=== PATIENT | male | born 1955 | race Caucasian/White ===

== ENCOUNTER 2017-04-17 14:44 | Inpatient (IN) | payer OTHER ==
[~2017-04-17] VITALS: Ht 160 cm; Wt 80.0 kg
[2017-04-17 16:02] LABS: ADD SCAN DIFF NO
[2017-04-17 16:06] LABS: BASOPHIL # 0.1 10^3/ul (0.0-0.1); BASOPHILS % 0.8 % (0.0-2.0); EOSINOPHILS # 0.2 10^3/ul (0.0-0.5); EOSINOPHILS % 1.7 % (0.0-7.0); HEMATOCRIT 38.9 % (42.0-52.0); HEMOGLOBIN 13.6 g/dl (14.0-18.0); LYMPHOCYTES # 1.8 10^3/ul (0.8-2.9); LYMPHOCYTES % 20.6 % (15.0-51.0); MEAN CORPUSCULAR HEMOGLOBIN 31.2 pg (29.0-33.0); MEAN CORPUSCULAR VOLUME 89.2 fl (82.0-101.0); MEAN PLATELET VOLUME 10.4 fl (7.4-10.4); MONOCYTE # 0.6 10^3/ul (0.3-0.9); MONOCYTES % 7.1 % (0.0-11.0); NEUTROPHIL # 6.1 10^3/ul (1.6-7.5); NEUTROPHILS % 69.5 % (39.0-77.0); PLATELET COUNT 248 10^3/UL (140-415); RED BLOOD COUNT 4.36 10^6/ul (4.70-6.10); RED CELL DISTRIBUTION WIDTH 13.2 % (11.5-14.5); WHITE BLOOD COUNT 8.7 10^3/ul (4.8-10.8)
[2017-04-17 16:22] LABS: INR 0.89; PARTIAL THROMBOPLASTIN TIME 24.4 Sec (25.0-35.0); PT RATIO 0.9
[2017-04-17 16:23] LABS: ANION GAP 12 (8-16); BLOOD UREA NITROGEN 18 mg/dl (7-20); CALCIUM 9.1 mg/dl (8.4-10.2); CARBON DIOXIDE 23 mmol/L (21-31); CHLORIDE 100 mmol/L (97-110); GLUCOSE 321 mg/dl (70-220); POTASSIUM 4.4 mmol/L (3.5-5.1); SODIUM 131 mmol/L (135-144)
--- NOTE | 2017-04-17 16:25 | RADRPT ---
PROCEDURE: XR Chest 1 View. CLINICAL INDICATION: Abnormal breath sounds, possible stroke. TECHNIQUE: AP view of the chest was obtained. COMPARISON: None. FINDINGS: The cardiomediastinal silhouette is within normal limits. Elevation of the right hemidiaphragm is id entified. Atelectasis is noted at the lung bases. No consolidations are identified. No pneumothora x is seen. Osseous structures are intact. IMPRESSION: Elevation of the right hemidiaphragm. Atelectasis at the lung bases. RPTAT: AA .Anthony Arciniega MD, MD Date Time Electronically viewed and signed by .Anthony Arciniega MD, MD on 04/17/2017 16:25 .P/
[2017-04-17 16:35] LABS: TROPONIN-I < 0.012 ng/ml (0.00-0.12)
[2017-04-17] MEDS ORDERED: ACETAMINOPHEN 325 MG TAB PO PRN ×2 (17:00→19:00)
[2017-04-17] MEDS ORDERED: ONDANSETRON 4 MG INJ IV PRN (17:00)
--- NOTE | 2017-04-17 17:35 | RADRPT ---
PROCEDURE: CT brain without contrast CLINICAL INDICATION: Stroke TECHNIQUE: CT of the brain without contrast performed on a multidetector CT scanner, with multiplan ar reformats. One or more of the following dose reduction techniques were used: Automated exposure control, adjustment in mA and / or kV according to patient size, use of iterative reconstructive harmony hnique. CTDIvol = 44 mGy; DLP = 630 mGy-cm. COMPARISON: None available FINDINGS: No acute intracranial hemorrhage is identified. No extra-axial fluid collection is seen. There is no mass effect. No midline shift is identified. Ventricles and sulci are mildly enlarged compatible with generalized volume loss. Chronic lacunar infarcts are identified at the left basal ganglia - anterior montanez radiata, genu of the right internal capsule. There is also a chronic lacunar infarct versus perivascular space at t he left sub insular region. There are mild areas of hypodensity in the periventricular - deep white matter which are nonspecific but suggestive of chronic small vessel ischemic changes. Theodore-white d ifferentiation is otherwise grossly preserved. Atherosclerotic calcifications of the proximal intracranial arteries are noted. Osseous structures are unremarkable. Mastoid air cells and imaged paranasal sinuses grossly clear. IMPRESSION: 1. No acute intracranial pathology identified. 2. Chronic left basal ganglia/montanez radiata, right internal capsule lacunar infarcts, and left sub insular chronic lacunar infarct versus perivascular space. 2. Mild generalized volume loss, with mild chronic small vessel ischemic changes. RPTAT: VV .Pascual Read MD, MD Date Time Electronically viewed and signed by .Pascual Read MD, MD on 04/17/2017 17:35 .O/
[2017-04-17 18:16] VITALS: BP 132/73; PULSE 69; RESP 16
[2017-04-17 18:22] VITALS: PULSE 73
[2017-04-17] MEDS ORDERED: DEXTROSE 5%-0.45% NACL 1,000 ML IV SCH (19:00)
--- NOTE | 2017-04-17 19:02 | ERA ---
ER Documentation Chief Complaint Date/Time DATE: 04/17/17 TIME: 19:00 Chief Complaint SENT BY PMD FOR LT SIDE WEAKNESS SINCE LAST SATURDAY HPI Patient is a 61-year-old male with hypertension and diabetes who presents with weakness. The patient said that he went to another hospital on Saturday and his sugar was high. He then was sent to his doctor who sent him to the ER because he was having left-sided face and body weakness. He said that he had incontinence which started on Saturday as well. He has chest pain and shortness of breath as well as trouble swallowing. The symptoms have been constant since Saturday. Upon review of old medical records this is the patient's first visit to the emergency department. His primary doctor is Dr. Damian. ROS All systems reviewed and are negative except as per history of present illness. Allergies Allergies: Coded Allergies: No Known Allergy (Unverified , 04/17/17) PMhx/Soc Medical and Surgical Hx: pt denies Medical Hx, pt denies Surgical Hx Hx Alcohol Use: No Hx Substance Use: No Hx Tobacco Use: No Smoking Status: Never smoker FmHx Family History: diabetes Physical Exam Vitals Vital Signs Date Time Temp Pulse Resp B/P Pulse Ox O2 Delivery O2 Flow Rate FiO2 04/17/17 15:59 Nasal Cannula 2 04/17/17 14:59 98.1 96 18 94/59 98 Physical Exam Const: Slurred speech Head: Atraumatic Eyes: Normal Conjunctiva ENT: Normal External Ears, Nose and Mouth. Neck: Full range of motion..~ No meningismus. Resp: Clear to auscultation bilaterally Cardio: Regular rate and rhythm, no murmurs Abd: Soft, non tender, non distended. Normal bowel sounds Skin: No petechiae or rashes Back: No midline or flank tenderness Ext: No cyanosis, or edema Neur: Awake and alert, left-sided facial droop, slurred speech, pronator drift to the left upper extremity, weakness of the left hand supervisor blood and weakness of the left lower extremity Psych: Normal Mood and Affect Result Diagram: 04/17/17 1555 04/17/17 1555 Results 24 hrs Laboratory Tests Test 04/17/17 15:55 White Blood Count 8.710^3/ul Red Blood Count 4.3610^6/ul Hemoglobin 13.6g/dl Hematocrit 38.9% Mean Corpuscular Volume 89.2fl Mean Corpuscular Hemoglobin 31.2pg Mean Corpuscular Hemoglobin Concent 35.0g/dl Red Cell Distribution Width 13.2% Platelet Count 30920^3/UL Mean Platelet Volume 10.4fl Neutrophils % 69.5% Lymphocytes % 20.6% Monocytes % 7.1% Eosinophils % 1.7% Basophils % 0.8% Nucleated Red Blood Cells % 0.0/100WBC Neutrophils # 6.110^3/ul Lymphocytes # 1.810^3/ul Monocytes # 0.610^3/ul Eosinophils # 0.210^3/ul Basophils # 0.110^3/ul Nucleated Red Blood Cells # 0.010^3/ul Prothrombin Time 12.0Sec Prothrombin Time Ratio 0.9 INR International Normalized Ratio 0.89 Activated Partial Thromboplast Time 24.4Sec Sodium Level 131mmol/L Potassium Level 4.4mmol/L Chloride Level 100mmol/L Carbon Dioxide Level 23mmol/L Anion Gap 12 Blood Urea Nitrogen 18mg/dl Creatinine 1.00mg/dl Glucose Level 321mg/dl Calcium Level 9.1mg/dl Troponin I < 0.012ng/ml Procedures/MDM EKG read by me: Rate/Rhythm: Regular rate and rhythm at a normal rate Intervals: Normal Impression: No evidence of ischemia or arrhythmia CT brain shows no acute abnormality per radiology. Patient is a 61-year-old male with diabetes and hypertension who presents with what appears to be an acute stroke. He is outside the window for TPA. The patient had a bedside swallow evaluation and NIH stroke scale performed. He had a CT scan of the brain which showed no acute bleed. The patient will be given aspirin for his stroke. The patient will be admitted to a telemetry bed under the care of Dr. Schofield as he has [facility] insurance. I doubt intracranial hemorrhage or mass. Departure Diagnosis: Primary Impression: Stroke Qualified Code: I63.9 - Cerebrovascular accident (CVA), unspecified mechanism Additional Impression: Acute weakness Condition: BRAXTON Roth MD April 17, 2017 19:02
[2017-04-17] MEDS ORDERED: ASPIRIN 325 MG TAB PO SCH (19:30)
--- NOTE | 2017-04-17 19:55 | RADRPT ---
PROCEDURE: US Carotids. CLINICAL INDICATION: bruit , STROKE TECHNIQUE: Multiple sonographic of the carotid bifurcation region and vertebral arteries were obta ined utilizing barahona scale, duplex and color-flow imaging. The images were reviewed on a PACS worksta tion. COMPARISON: No prior studies are available for comparison. FINDINGS: Evaluation of the right carotid bifurcation region reveals no significant calcific atherosclerotic d isease. Evaluation of the left carotid bifurcation region reveals no significant calcific atherosclerotic di sease. There is antegrade flow within the vertebral arteries bilaterally. RIGHT CAROTID MEASUREMENTS: Common Carotid Kkblql02.2 (cm/sec) Internal Carotid Artery - ixjfsgoo41.8 (cm/sec) Internal Carotid Artery - mid50.8 (cm/sec) Internal Carotid Artery - .1 (cm/sec) Internal Carotid/Common Carotid0.8 LEFT CAROTID MEASUREMENTS: Common Carotid Yimtqq71.4 (cm/sec) Internal Carotid Artery - cgxniiic49.1 (cm/sec) Internal Carotid Artery - mid58.4 (cm/sec) Internal Carotid Artery - cwabyx43.4 (cm/sec) Internal Carotid/Common Carotid0.99 RPTAT: AA IMPRESSION: No evidence for hemodynamically significant stenosis in the bilateral internal carotid arteries - va lidated velocity measurements with angiographic measurements, velocity criteria are extrapolated fro m diameter data as defined by the Society of Radiologists in Ultrasound Consensus Conference Radiolo gy 2003; 229;340-346. This study does indirectly reference the measurement of the distal ICA diamet er as the denominator for stenosis measurement. Normal antegrade flow in the vertebral arteries bilaterally. .Shad Barroso MD, Date Time Electronically viewed and signed by .Shad Barroso MD, MD on 04/17/2017 19:55 .S/
[2017-04-17 20:00] VITALS: Ht 160 cm; Wt 80.0 kg
[2017-04-17 20:03] VITALS: BP 128/72; RESP 16
[2017-04-17 20:14] VITALS: PULSE 65
--- NOTE | 2017-04-17 20:23 | QN ---
Documentation Comment A/P CVA HTN DM ASHD PLAN PER ORDER JOANNA LEACH MD April 17, 2017 20:22
[2017-04-17] MEDS ORDERED: GLUCAGON 1 MG INJ IM PRN (21:00)
[2017-04-17] MEDS ORDERED: DEXTROSE 50% 50 ML SYRINGE IV PRN ×2 (21:00)
[2017-04-17] MEDS ORDERED: GLUCOSE GEL 15 GRAM TUBE BUCCAL PRN (21:00)
[2017-04-17] MEDS ORDERED: GLUCOSE GEL 15 GRAM TUBE PO PRN ×2 (21:00)
[2017-04-17] MEDS: INSULIN ASPART [NOVOLOG] 3 ML PEN SC SCH (21:49)
--- NOTE | 2017-04-17 22:32 | QN ---
Documentation Comment [id number] JOANNA LEACH MD April 17, 2017 22:32
[2017-04-18] VITALS (13 sets, daily range): BP systolic 98–136; BP diastolic 56–78; PULSE 66–131; RESP 18–20
[2017-04-18] MEDS: ACCU-CHEK XX SCH (02:00)
[2017-04-18] MEDS ORDERED: PANTOPRAZOLE 40 MG INJ IV SCH (06:00)
--- NOTE | 2017-04-18 06:51 | HP ---
DATE OF ADMISSION: 04/17/2017 HISTORY OF PRESENT ILLNESS: The patient with history of hypertension, diabetes mellitus, presented to the ER with weakness and also some shortness of breath. No chest pain. The patient has left-sided weakness going on for some time, but he still has been trying to manage. The patient's hematocrit 38.9, sodium 131, glucose 321. The patient had a brain CT scan done, shows no acute intracranial pathology, chronic left basal ganglion _ right internal capsule lacunar infarction and left subinsular chronic lacunar infarction versus perivascular space. The patient's chest x-ray: Elevation of right hemidiaphragm. Carotid duplex scan shows no evidence for hemodynamically significant stenosis in the bilateral internal carotid arteries. PAST MEDICAL HISTORY: Positive for diabetes, hypertension. ALLERGY HISTORY: NEGATIVE. FAMILY HISTORY: Negative _ SOCIAL HISTORY: Negative. MEDICATION HISTORY: Not available. REVIEW OF SYSTEMS: HEENT: Unremarkable for complaining of speech disorder at this point. LUNGS: Unremarkable. _. ABDOMEN: Unremarkable. EXTREMITIES: Left-sided weakness. PHYSICAL EXAMINATION: GENERAL: The patient is awake, alert. VITAL SIGNS: Stable. Pulse 77, blood pressure 120/72. HEAD: Atraumatic, normocephalic. EYES: Pupils equal, reactive to light. NECK: Supple. No JVD. LUNGS: Clear. CARDIOVASCULAR: S1, S2 are normal. ABDOMEN: Soft, nontender. Bowel sounds positive. No palpable mass or hepatosplenomegaly. No guarding, rebound tenderness. EXTREMITIES: There is no cyanosis, clubbing or edema. CENTRAL NERVOUS SYSTEM: The patient is awake, alert with at times slurred speech with left-sided weakness noted. IMPRESSION: 1. Possible subacute cerebrovascular accident. 2. Diabetes mellitus, uncontrolled. 3. Hypertension. 4. Hyponatremia. PLAN: Obtain 2D echo, MRI of the brain, lipid panel. The patient is on aspirin. The patient is also on sliding scale, PPI. The patient will have lipid panel ordered. Dictated By: JOANNA DEJESUS/STEPHANIE Conf#: [id number] DID#: [id number] MTDD
[2017-04-18 08:04] LABS: CHOL/HDL RATIO 5.6 RATIO
[2017-04-18] MEDS: ASPIRIN 325 MG TAB PO SCH (08:06)
[2017-04-18] MEDS: INSULIN ASPART [NOVOLOG] 3 ML PEN SC SCH ×6 (08:10→21:03)
[2017-04-18] MEDS ORDERED: LISI-313 PO (11:42)
[2017-04-18] MEDS ORDERED: ZOC10 PO (11:42)
[2017-04-18] MEDS ORDERED: MULTI PO (11:48)
[2017-04-18] MEDS ORDERED: [UNRECOGNIZED DRUG - OTHER] PO (11:48)
[2017-04-18] MEDS ORDERED: ASPI81TA3 PO (11:48)
[2017-04-18] MEDS ORDERED: NOVO7030 SC ×2 (11:48)
[2017-04-18] MEDS ORDERED: TAMS0.4C2 PO (11:48)
--- NOTE | 2017-04-18 11:58 | CONS ---
Date/Time of Note Date/Time of Note DATE: 04/18/17 TIME: 11:47 Assessment/Plan Assessment/Plan Chief Complaint/Hosp Course 61 year old male with history of uncontrolled DM, HTN admitted with weakness, SOB and exam suggestive of right sided basal ganglia lacunar infarction from small vessel disease, possible new ischemic injury or recrudescence of symptoms due to hyperglycemia and metabolic issues. Recommendations: -MRI Brain w/o contrast, MRA Head w/o contrast carotid duplex shows no significant stenosis -continue aspirin -LDL: 86 target should be less than 70 recommend starting low dose Lipitor 10 mg qhs -2D ECHO with bubble study -maintain euglycemic, maintain normotensive blood pressure goal SBP <130 for lacunar type infarctions -recheck HBA1C first speciment was not sent -anemia work up -DVT ppx -PT/OT/Speech evaluation may benefit from AR Problems: Consultation Date/Type/Reason Admit Date/Time April 17, 2017 at 16:37 Date of Consultation: April 17, 2017 Type of Consultation: Neurology Reason for Consultation evaluation for CVA Referring Provider: JOANNA LEACH MD Hx of Present Illness 61 year old male with history of uncontrolled DM, HTN presented to the ER with complaint of generalized weakness and shortness of breath with elevated glucose 321 and mild hyponatremia Na: 131. He was noted to have left facial arm and leg weakness, Head CT showed chronic left basal ganglia/montanez radiata, right internal capsule lacunar infarcts, and left sub-insular chronic lacunar infarct. Further imaging is pending. Patient is a poor historian, denies any prior history of CVA. He denies any headache, no visual symptoms, no dysphagia or dysarthria, reports he is unable to ambulate due to weakness. weakness left arm and leg Past Medical History Medical History: diabetes, hypertension Past Surgical History Past Surgical Hx: no surgical history Social History Smoking Status: Never smoker Exam/Review of Systems Vital Signs Vitals Vital Signs Date Time Temp Pulse Resp B/P Pulse Ox O2 Delivery O2 Flow Rate FiO2 04/18/17 11:22 98.0 70 18 119/70 96 04/17/17 18:16 Room Air 04/17/17 15:59 2 Intake and Output 04/17/17 04/17/17 04/18/17 15:00 23:00 07:00 Intake Total 1100 ml Balance 1100 ml Exam awake and alert oriented x3 no aphasia follows commands well CNL JOSSELINE, no nystagmus, VFF blinks to threat appropriately, left lower facial weakness on smile palate upgoing uvula midline scm/trap intact Motor: drift to left arm, pronates significantly strength is 4-/5 on left UE to right, left leg 4+/5 strength weakness prominent more distal on plantar flexion right arm and leg 5/5 Sensory: intact throughout to DSS, reportedly intact to testing Coordination: left sided ataxia in proportion to weakness Reflexes 3+ UE and KJ, AJ absent and toes are mute Gait: not tested Results Result Diagram: 04/17/17 1555 04/17/17 1555 Results 24 hrs Laboratory Tests Test 04/17/17 15:55 04/17/17 18:00 04/17/17 21:36 04/18/17 01:49 White Blood Count 8.7 Red Blood Count 4.36 L Hemoglobin 13.6 L Hematocrit 38.9 L Mean Corpuscular Volume 89.2 Mean Corpuscular Hemoglobin 31.2 Mean Corpuscular Hemoglobin Concent 35.0 Red Cell Distribution Width 13.2 Platelet Count 248 Mean Platelet Volume 10.4 Neutrophils % 69.5 Lymphocytes % 20.6 Monocytes % 7.1 Eosinophils % 1.7 Basophils % 0.8 Nucleated Red Blood Cells % 0.0 Neutrophils # 6.1 Lymphocytes # 1.8 Monocytes # 0.6 Eosinophils # 0.2 Basophils # 0.1 Nucleated Red Blood Cells # 0.0 Prothrombin Time 12.0 L Prothrombin Time Ratio 0.9 INR International Normalized Ratio 0.89 Activated Partial Thromboplast Time 24.4 L Sodium Level 131 L Potassium Level 4.4 Chloride Level 100 Carbon Dioxide Level 23 Anion Gap 12 Blood Urea Nitrogen 18 Creatinine 1.00 Glucose Level 321 H Calcium Level 9.1 Troponin I < 0.012 Hemoglobin A1c Bedside Glucose 181 283 H Test 04/18/17 06:50 04/18/17 07:54 Triglycerides Level 251 H Cholesterol Level 165 LDL Cholesterol, Calculated 86 HDL Cholesterol 29 L Cholesterol/HDL Ratio 5.6 Bedside Glucose 328 H Medications Medications Current Medications Dextrose/Sodium Chloride (D5-1/2ns) 1,000 ml @ 30 mls/hr Q24H IV Last administered on 04/17/17t 21:52; Admin Dose 30 MLS/HR; Start 04/17/17 at 19:00 Pantoprazole (Protonix Iv) 40 mg DAILY@06 IV Last administered on 04/18/17 05: 46; Admin Dose 40 MG; Start 04/18/17 at 06:00 Aspirin (Aspirin) 325 mg DAILY PO Last administered on 04/18/17 08:06; Admin Dose 325 MG; Start 04/18/17 at 09:00 Acetaminophen (Tylenol Tab) 650 mg Q6H PRN PO PAIN AND OR ELEVATED TEMP; Start 04/17/17 at 19:00 Diagnostic Test (Pha) (Accu-Chek) 1 ea 02 XX ; Start 04/18/17 at 02:00 Miscellaneous Information 1 ea NOTE XX ; Start 04/17/17 at 21:00 Glucose (Glutose) 15 gm Q15M PRN PO DECREASED GLUCOSE; Start 04/17/17 at 21:00 Glucose (Glutose) 22.5 gm Q15M PRN PO DECREASED GLUCOSE; Start 04/17/17 at 21: 00 Dextrose (D50w Syringe) 25 ml Q15M PRN IV DECREASED GLUCOSE; Start 04/17/17 at 21:00 Dextrose (D50w Syringe) 50 ml Q15M PRN IV DECREASED GLUCOSE; Start 04/17/17 at 21:00 Glucagon (Glucagen) 1 mg Q15M PRN IM DECREASED GLUCOSE; Start 04/17/17 at 21:00 Glucose (Glutose) 15 gm Q15M PRN BUCCAL DECREASED GLUCOSE; Start 04/17/17 at 21 :00 SHONNA HERNANDEZ MD Apr 18, 2017 11:58
[2017-04-18] MEDS ORDERED: NON-FORMULARY/PATIENT OWN MED (Simvastatin 10 MG) PO SCH (12:00)
[2017-04-18] MEDS: MULTIVITAMINS THERAPEUTIC TAB PO SCH (13:07)
[2017-04-18] MEDS: LISINOPRIL 5 MG TAB PO SCH (13:07)
[2017-04-18] MEDS: TAMSULOSIN (SR) 0.4 MG CAP PO SCH (13:07)
[2017-04-18] MEDS ORDERED: INSULIN GLARGINE [LANtus] 3 ML PEN SC SCH ×2 (14:00→20:00)
--- NOTE | 2017-04-18 19:27 | PN ---
Date/Time of Note Date/Time of Note DATE: 04/18/17 TIME: 19:25 Assessment/Plan VTE Prophylaxis VTE Prophylaxis Intervention: other Lines/Catheters Urinary Cath still in place: No Assessment/Plan Chief Complaint/Hosp Course IMPRESSION: 1. Possible subacute cerebrovascular accident. 2. Diabetes mellitus, uncontrolled. 3. Hypertension. 4. Hyponatremia. plan per dr jamey reese insulin Problems: Subjective 24 Hr Interval Summary ENT: no complaints Respiratory: no complaints Cardiovascular: no complaints Gastrointestinal: no complaints Exam/Review of Systems Vital Signs Vitals Vital Signs Date Time Temp Pulse Resp B/P Pulse Ox O2 Delivery O2 Flow Rate FiO2 04/18/17 16:00 70 04/18/17 15:16 98.0 18 101/60 96 04/17/17 18:16 Room Air 04/17/17 15:59 2 Intake and Output 04/17/17 04/17/17 04/18/17 15:00 23:00 07:00 Intake Total 1100 ml Balance 1100 ml Exam Respiratory: clear to auscultation Cardiovascular: regular rate and rhythm Gastrointestinal: soft Musculoskeletal: nl extremities to inspection Extremities: normal pulses Neurological: other (left side weakness) Results Result Diagram: 04/17/17 1555 04/17/17 1555 Results 24 hrs Laboratory Tests Test 04/17/17 21:36 04/18/17 01:49 04/18/17 06:50 04/18/17 07:54 Bedside Glucose 181 283 H 328 H Triglycerides Level 251 H Cholesterol Level 165 LDL Cholesterol, Calculated 86 HDL Cholesterol 29 L Cholesterol/HDL Ratio 5.6 Test 04/18/17 12:15 04/18/17 15:34 04/18/17 17:25 Bedside Glucose 317 H 281 H 272 H Medications Medications Current Medications Dextrose/Sodium Chloride (D5-1/2ns) 1,000 ml @ 0 mls/hr Q24H IV Last administered on 04/17/17 21:52; Admin Dose 30 MLS/HR; Start 04/17/17 at 19:00 Aspirin (Aspirin) 325 mg DAILY PO Last administered on 04/18/17 08:06; Admin Dose 325 MG; Start 04/18/17 at 09:00 Acetaminophen (Tylenol Tab) 650 mg Q6H PRN PO PAIN AND OR ELEVATED TEMP; Start 04/17/17 at 19:00 Diagnostic Test (Pha) (Accu-Chek) 1 XX ; Start 04/18/17 at 02:00 Miscellaneous Information 1 ea NOTE XX ; Start 04/17/17 at 21:00 Glucose (Glutose) 15 gm Q15M PRN PO DECREASED GLUCOSE; Start 04/17/17 at 21:00 Glucose (Glutose) 22.5 gm Q15M PRN PO DECREASED GLUCOSE; Start 04/17/17 at 21: 00 Dextrose (D50w Syringe) 25 ml Q15M PRN IV DECREASED GLUCOSE; Start 04/17/17 at 21:00 Dextrose (D50w Syringe) 50 ml Q15M PRN IV DECREASED GLUCOSE; Start 04/17/17 at 21:00 Glucagon (Glucagen) 1 mg Q15M PRN IM DECREASED GLUCOSE; Start 04/17/17 at 21:00 Glucose (Glutose) 15 gm Q15M PRN BUCCAL DECREASED GLUCOSE; Start 04/17/17 at 21 :00 Atorvastatin Calcium (Lipitor) 10 mg HS PO ; Start 04/18/17 at 21:00 Lisinopril (Zestril) 5 mg DAILY PO Last administered on 04/18/17 13:07; Admin Dose 5 MG; Start 04/18/17 at 12:00 Multivitamins Therapeutic (Theragran) 1 tab DAILY PO Last administered on 13:07; Admin Dose 1 TAB; Start 04/18/17 at 12:00 Tamsulosin HCl (Flomax) 0.4 mg DAILY PO Last administered on 04/18/17 13:07; Admin Dose 0.4 MG; Start 04/18/17 at 12:00 Insulin Glargine (Lantus) 20 unit QAM SC Last administered on 04/18/17 15:39; Admin Dose 20 UNIT; Start 04/18/17 at 14:00 Pantoprazole (Protonix Tab) 40 mg DAILY@06 PO ; Start 04/19/17 at 06:00 JOANNA LEACH MD Apr 18, 2017 19:27
--- NOTE | 2017-04-18 20:20 | RADRPT ---
Echocardiogram Report Patient Name: TAI SPENCER Gender: Male Date: 1955 Study Date: 18-Apr-2017 Restrike Hammer Operator: Shruthi [facility] Location: [id number] Ref. Physician: JOANNA LEACH Quality: Adequate Procedures: Transthoracic echocardiogram with complete 2D, M-Mode, and doppler examination. Indications: Stroke. 2D/M Mode Doppler Measurement Value Normal Ranges Measurement Value Normal Ranges LVIDd 2D 4.7 3.5 - 5.6 cm AV Peak Callum 1.0 m/sec LVIDs 2D 3.1 2.1 - 4.1 cm AV Peak PG 4.2 mmHg LVPWd 2D 1.2 0.6 - 1.1 cm LVOT Peak Callum 0.8 m/sec IVSd 2D 1.2 0.6 - 1.1 cm LVOT Peak PG 2.5 mmHg AoR Diam 2D 3.4 2.0 - 3.7 cm MV E Peak Callum 0.7 m/sec EDV 2D 101.7 cm3 MV A Peak Callum 0.9 m/sec ESV 2D 28.7 cm3 MV E/A 0.8 LA Dimen 2D 3.7 2.3 - 4.0 cm MV Decel Time 256 msec MV Decel [place] 3 MV E/A 0.8 Findings Left Ventricle: Normal left ventricular systolic function. Normal left ventricular cavity size. Left ventricular wall thickness upper limits of normal. Ejection fraction is visually estimated at 6065 %. Tissue Doppler/Mitral Doppler indices are consistent with impaired relaxation (Stage I diastolic dysfunction). Right Ventricle: Normal right ventricular size. Normal right ventricular systolic function. Left Atrium: The left atrium is normal in size. Right Atrium: The right atrium is normal in size. Mitral Valve: Mild mitral annular calcification. Trace mitral regurgitation. Aortic Valve: Normal appearance of the aortic valve. No significant aortic stenosis or insufficiency. Tricuspid Valve: Normal appearance and function of the tricuspid valve with trace physiologic regurgitation. Pulmonic Valve: Pulmonic valve not well visualized. There is trace pulmonic regurgitation. Pericardium: Normal pericardium with no significant pericardial effusion. Aorta: Normal aortic root. IVC: Normal size and normal respiratory collapse consistent with normal right atrial pressure. Conclusions 1.Normal left ventricular systolic function. Normal left ventricular cavity size. Left ventricular wall thickness upper limits of normal. Ejection fraction is visually estimated at 60-65 %. Tissue Doppler/Mitral Doppler indices are consistent with impaired relaxation (Stage I diastolic dysfunction). 2.Trace mitral regurgitation. 3.Normal appearance and function of the tricuspid valve with trace physiologic regurgitation. 4.There is trace pulmonic regurgitation. Electronically Signed By: Adama Fontenot 18-Apr-2017 20:20:09 -0700 Patient Name: TAI SPENCER Study Date: 18-Apr-2017 [id number]
[2017-04-18] MEDS: ATORVASTATIN 10 MG TAB PO SCH (21:01)
--- NOTE | 2017-04-18 22:24 | RADRPT ---
PROCEDURE: MRI Brain without contrast. CLINICAL INDICATION: Acute stroke TECHNIQUE: An MRI of the brain was performed on a high resolution hi-definition MRI scanner utiliz ing the following sequences: Sagittal and axial T1 weighted, axial T2 weighted, axial diffusion gianna ghted with ADC mapping, coronal GRE, and axial FLAIR. COMPARISON: CT brain 04/17/2017 FINDINGS: The scalp and calvarium are normal. The bilateral orbits are normal. The bilateral paranasal sinuse s are remarkable for chronic bilateral mucoperiosteal disease in the maxillary sinuses, the ethmoid sinuses and the right septated sphenoid sinus. The presence of a small polyp is suggested in the ri ght sphenoid sinus. On diffusion weighted sequences, restricted diffusion is present in the right lee dorian compatible w ith an acute non hemorrhagic infarct. On the FLAIR and T2-weighted sequences, punctate foci of hyper intensity are present in the bilateral subcortical white matter, bilateral centrum semiovale, bilate ral periventricular white matter most compatible with mild chronic microvascular ischemic disease. A chronic lacunar infarct is noted in the left montanez radiography extending inferiorly into the left basal ganglia as well as the chronic lacunar infarct in the right humaira of the internal capsule. No extra-axial fluid collections are present. The ventricles and sulci are age appropriate. Mild di ffuse volume loss is present. No evidence of intracranial hemorrhage, mass effect or midline shift i s present. Normal flow voids are visible in the proximal intracranial arteries and dural sinuses, indicating patency. IMPRESSION: 1. Acute, non hemorrhagic right lee pontine infarct. 2. Chronic left montanez radiata, left basal ganglia and right internal capsule lacunar infarcts. 3. Mild chronic microvascular ischemic disease and diffuse volume loss. 4. Chronic bilateral maxillary sinus disease and right septated sphenoid sinus disease and possible polyp. A call report was made to Alli Schofield at 04/18/2017 10:19:51 PM following the completion of the exam ination by the undersigned. RPTAT: HDC .Perla Kang MD, Date Time Electronically viewed and signed by .Perla Kang MD, on 04/18/2017 22:24 .C/
--- NOTE | 2017-04-18 22:27 | RADRPT ---
PROCEDURE: MRA Brain. CLINICAL INDICATION: Left-sided weakness TECHNIQUE: An MRA of the brain was performed on a GE 3.0 Nirmala nirmala scanner 3-D [id number] MR angiography technique. Source and MIP images were reviewed. COMPARISON: CT brain 04/17/2017 FINDINGS: The internal carotid arteries are patent and normal in caliber. The middle cerebral and the anterio r cerebral arteries are also patent and normal in caliber with no significant luminal irregularity o r narrowing identified. The vertebral arteries join to form the basilar artery which is seen to the [place]. 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 Normal bilateral superior cerebellar arteries and bilateral posterior cerebral arteries are noted. superio r cerebellar arteries are visualized and normal in appearance. The right vertebral artery is domin ant. The posterior cerebral arteries are patent and normal in appearance bilaterally. No aneurysm s are detected. IMPRESSION: 1. Normal variant MR angiogram of the [place]. RPTAT: HDC .Perla Kang MD, MD Date Time Electronically viewed and signed by .Perla Kang MD, on 04/18/2017 22:27 .C/
[2017-04-19] VITALS (17 sets, daily range): BP systolic 97–121; BP diastolic 55–71; PULSE 67–172; RESP 16–18
[2017-04-19] MEDS: ACCU-CHEK XX SCH (02:00)
[2017-04-19] MEDS: PANTOPRAZOLE (EC) 40 MG TAB PO SCH (05:57)
[2017-04-19] MEDS: INSULIN ASPART [NOVOLOG] 3 ML PEN SC SCH ×7 (08:11→21:57)
[2017-04-19] MEDS: LISINOPRIL 5 MG TAB PO SCH (08:39)
[2017-04-19] MEDS: TAMSULOSIN (SR) 0.4 MG CAP PO SCH (08:39)
[2017-04-19] MEDS: ASPIRIN 325 MG TAB PO SCH (08:39)
[2017-04-19] MEDS: MULTIVITAMINS THERAPEUTIC TAB PO SCH (08:39)
[2017-04-19] MEDS: INSULIN GLARGINE [LANtus] 3 ML PEN SC SCH (08:44)
--- NOTE | 2017-04-19 15:06 | PN ---
Date/Time of Note Date/Time of Note DATE: 04/19/17 TIME: 15:05 Assessment/Plan VTE Prophylaxis VTE Prophylaxis Intervention: ambulation Lines/Catheters Urinary Cath still in place: No Assessment/Plan Chief Complaint/Hosp Course 1. Possible subacute cerebrovascular accident. 2. Diabetes mellitus, uncontrolled. 3. Hypertension. 4. Hyponatremia Problems: Subjective 24 Hr Interval Summary Constitutional: improved, no complaints Exam/Review of Systems Vital Signs Vitals Vital Signs Date Time Temp Pulse Resp B/P Pulse Ox O2 Delivery O2 Flow Rate FiO2 04/19/17 12:00 79 04/19/17 11:17 98.4 18 121/71 97 04/17/17 18:16 Room Air 04/17/17 15:59 2 Intake and Output 04/18/17 04/18/17 04/19/17 15:00 23:00 07:00 Intake Total 500 ml 550 ml Output Total 300 ml 600 ml Balance 200 ml -50 ml Exam Constitutional: alert, oriented Respiratory: clear to auscultation Cardiovascular: regular rate and rhythm Results Result Diagram: 04/17/17 1555 04/17/17 1555 Results 24 hrs Laboratory Tests Test 04/18/17 15:34 04/18/17 17:25 04/18/17 21:00 04/19/17 01:39 Bedside Glucose 281 H 272 H 256 H 283 H Test 04/19/17 06:05 04/19/17 08:07 04/19/17 11:28 Hemoglobin A1c Bedside Glucose 292 H 267 H Medications Medications Current Medications Dextrose/Sodium Chloride (D5-1/2ns) 1,000 ml @ 0 mls/hr Q24H IV Last administered on 04/17/17 21:52; Admin Dose 30 MLS/HR; Start 04/17/17 at 19:00 Aspirin (Aspirin) 325 mg DAILY PO Last administered on 04/19/17 08:39; Admin Dose 325 MG; Start 04/18/17 at 09:00 Acetaminophen (Tylenol Tab) 650 mg Q6H PRN PO PAIN AND OR ELEVATED TEMP; Start 04/17/17 at 19:00 Diagnostic Test (Pha) (Accu-Chek) 1 ea 02 XX ; Start 04/18/17 at 02:00 Miscellaneous Information 1 ea NOTE XX ; Start 04/17/17 at 21:00 Glucose (Glutose) 15 gm Q15M PRN PO DECREASED GLUCOSE; Start 04/17/17 at 21:00 Glucose (Glutose) 22.5 gm Q15M PRN PO DECREASED GLUCOSE; Start 04/17/17 at 21: 00 Dextrose (D50w Syringe) 25 ml Q15M PRN IV DECREASED GLUCOSE; Start 04/17/17 at 21:00 Dextrose (D50w Syringe) 50 ml Q15M PRN IV DECREASED GLUCOSE; Start 04/17/17 at 21:00 Glucagon (Glucagen) 1 mg Q15M PRN IM DECREASED GLUCOSE; Start 04/17/17 at 21:00 Glucose (Glutose) 15 gm Q15M PRN BUCCAL DECREASED GLUCOSE; Start 04/17/17 at 21 :00 Atorvastatin Calcium (Lipitor) 10 mg HS PO Last administered on 04/18/17 21:01 ; Admin Dose 10 MG; Start 04/18/17 at 21:00 Lisinopril (Zestril) 5 mg DAILY PO Last administered on 04/19/17 08:39; Admin Dose 5 MG; Start 04/18/17 at 12:00 Multivitamins Therapeutic (Theragran) 1 tab DAILY PO Last administered on 08:39; Admin Dose 1 TAB; Start 04/18/17 at 12:00 Tamsulosin HCl (Flomax) 0.4 mg DAILY PO Last administered on 04/19/17 08:39; Admin Dose 0.4 MG; Start 04/18/17 at 12:00 Pantoprazole (Protonix Tab) 40 mg DAILY@06 PO Last administered on 04/19/17 05: 57; Admin Dose 40 MG; Start 04/19/17 at 06:00 Insulin Glargine (Lantus) 25 unit QAM SC Last administered on 04/19/17 08:44; Admin Dose 25 UNIT; Start 04/19/17 at 09:00 ZO YO 2, 2017 15:06
--- NOTE | 2017-04-19 15:09 | PDOCDIS ---
Discharge Instructions CONDITION Patient Condition: Serious HOME CARE INSTRUCTIONS: Diet Instructions: Reduced SodiumSpecial Diet: DIABETIC DIET. ACTIVITY: Activity Restrictions: Slowly Increase Activity FOLLOW UP/APPOINTMENTS Appointments continue rehab SCHOOL/WORK RELEASE May return to School/Work with: With Restrictions ZO YO Apr 19, 2017 15:09
[2017-04-19] MEDS ORDERED: ACET325T40 PO (15:12)
[2017-04-19] MEDS ORDERED: Accu-Chek XX (15:12)
[2017-04-19] MEDS ORDERED: NOVO3I SC ×2 (15:12)
[2017-04-19] MEDS ORDERED: ASPI325T4 PO (15:12)
[2017-04-19] MEDS ORDERED: LANT3I SC (15:12)
[2017-04-19] MEDS ORDERED: PANT40TA4 PO (15:12)
--- NOTE | 2017-04-19 15:22 | CONS ---
Date/Time of Note Date/Time of Note DATE: 04/19/17 TIME: 15:13 Assessment/Plan Assessment/Plan Chief Complaint/Hosp Course Left-sided weakness Problems: Additional Assessment/Plan 61 year old male with history of uncontrolled DM, HTN admitted with weakness, SOB and exam suggestive of right sided basal ganglia lacunar infarction from small vessel disease, possible new ischemic injury or recrudescence of symptoms due to hyperglycemia and metabolic issues. MRI of the brain showed acute, non hemorrhagic right lee pontine infarct, chronic left montanez radiata, left basal ganglia and right internal capsule lacunar infarcts, mild chronic microvascular ischemic disease and diffuse volume loss. Plan -continue aspirin -LDL: 86 target should be less than 70 recommend starting low dose Lipitor 10 mg qhs -2D ECHO with bubble study -maintain euglycemic, maintain normotensive blood pressure goal SBP <130 for lacunar type infarctions -recheck HBA1C first speciment was not sent -anemia work up -DVT ppx -PT/OT/Speech evaluation may benefit from AR Consultation Date/Type/Reason Admit Date/Time April 17, 2017 at 16:37 Initial Consult Date 04/17/17 Type of Consultation: Neurology Reason for Consultation Left-sided weakness Referring Provider: ALLI LEACH MD 24 HR Interval Summary Free Text/Dictation He is improving in his left-sided weakness. MRI of the brain showed acute, non hemorrhagic right lee pontine infarct, chronic left montanez radiata, left basal ganglia and right internal capsule lacunar infarcts, mild chronic microvascular ischemic disease and diffuse volume loss. Exam/Review of Systems Vital Signs Vitals Vital Signs Date Time Temp Pulse Resp B/P Pulse Ox O2 Delivery O2 Flow Rate FiO2 04/19/17 12:00 79 04/19/17 11:17 98.4 18 121/71 97 04/17/17 18:16 Room Air 04/17/17 15:59 2 Intake and Output 04/18/17 04/18/17 04/19/17 14:59 22:59 06:59 Intake Total 500 ml 550 ml Output Total 300 ml 600 ml Balance 200 ml -50 ml Exam Constitutional: alert, oriented, well developed Psych: nl mood/affect, no complaints Head: atraumatic, normocephalic Eyes: EOMI, nl conjunctiva, nl lids, nl sclera ENMT: mucosa pink and moist, nl external ears & nose, nl lips & teeth Neck: non-tender, supple Respiratory: clear to auscultation, normal air movement Cardiovascular: nl pulses, regular rate and rhythm Gastrointestinal: nl liver, spleen, non-tender, soft Neurological: nl mental status, nl speech, other (Mild left-sided weakness) Results Result Diagram: 04/17/17 1555 04/17/17 1555 Results 24 hrs Laboratory Tests Test 04/18/17 15:34 04/18/17 17:25 04/18/17 21:00 04/19/17 01:39 Bedside Glucose 281 H 272 H 256 H 283 H Test 04/19/17 06:05 04/19/17 08:07 04/19/17 11:28 Hemoglobin A1c Bedside Glucose 292 H 267 H Medications Medications Current Medications Dextrose/Sodium Chloride (D5-1/2ns) 1,000 ml @ 0 mls/hr Q24H IV Last administered on 04/17/17 21:52; Admin Dose 30 MLS/HR; Start 04/17/17 at 19:00 Aspirin (Aspirin) 325 mg DAILY PO Last administered on 04/19/17 08:39; Admin Dose 325 MG; Start 04/18/17 at 09:00 Acetaminophen (Tylenol Tab) 650 mg Q6H PRN PO PAIN AND OR ELEVATED TEMP; Start 04/17/17 at 19:00 Diagnostic Test (Pha) (Accu-Chek) 1 ea 02 XX ; Start 04/18/17 at 02:00 Miscellaneous Information 1 ea NOTE XX ; Start 04/17/17 at 21:00 Glucose (Glutose) 15 gm Q15M PRN PO DECREASED GLUCOSE; Start 04/17/17 at 21:00 Glucose (Glutose) 22.5 gm Q15M PRN PO DECREASED GLUCOSE; Start 04/17/17 at 21: 00 Dextrose (D50w Syringe) 25 ml Q15M PRN IV DECREASED GLUCOSE; Start 04/17/17 at 21:00 Dextrose (D50w Syringe) 50 ml Q15M PRN IV DECREASED GLUCOSE; Start 04/17/17 at 21:00 Glucagon (Glucagen) 1 mg Q15M PRN IM DECREASED GLUCOSE; Start 04/17/17 at 21:00 Glucose (Glutose) 15 gm Q15M PRN BUCCAL DECREASED GLUCOSE; Start 04/17/17 at 21 :00 Atorvastatin Calcium (Lipitor) 10 mg HS PO Last administered on 04/18/17 21:01 ; Admin Dose 10 MG; Start 04/18/17 at 21:00 Lisinopril (Zestril) 5 mg DAILY PO Last administered on 04/19/17 08:39; Admin Dose 5 MG; Start 04/18/17 at 12:00 Multivitamins Therapeutic (Theragran) 1 tab DAILY PO Last administered on 08:39; Admin Dose 1 TAB; Start 04/18/17 at 12:00 Tamsulosin HCl (Flomax) 0.4 mg DAILY PO Last administered on 04/19/17 08:39; Admin Dose 0.4 MG; Start 04/18/17 at 12:00 Pantoprazole (Protonix Tab) 40 mg DAILY@06 PO Last administered on 04/19/17 05: 57; Admin Dose 40 MG; Start 04/19/17 at 06:00 Insulin Glargine (Lantus) 25 unit QAM SC Last administered on 04/19/17 08:44; Admin Dose 25 UNIT; Start 04/19/17 at 09:[address] scan of the brain 04/18/2017 IMPRESSION: 1. No acute intracranial pathology identified. 2. Chronic left basal ganglia/montanez radiata, right internal capsule lacunar infarcts, and left sub insular chronic lacunar infarct versus perivascular space. 2. Mild generalized volume loss, with mild chronic small vessel ischemic changes. RPTAT: VV .Pascual Read MD, MD Date Time MRI of the brain 04/18/2017 IMPRESSION: 1. Acute, non hemorrhagic right lee pontine infarct. 2. Chronic left montanez radiata, left basal ganglia and right internal capsule lacunar infarcts. 3. Mild chronic microvascular ischemic disease and diffuse volume loss. 4. Chronic bilateral maxillary sinus disease and right septated sphenoid sinus disease and possible polyp. A call report was made to Alli Leach at 04/18/2017 10:19:51 PM following the completion of the examination by the undersigned. RPTAT: HDC .Perla Kang MD, Date Time Electronically viewed and signed by .Perla Kang MD, on 04/18/2017 22: 24 MR angiogram of the brain 04/18/2017 IMPRESSION: 1. Normal variant MR angiogram of the [place]. RPTAT: HDC .Perla Kang MD, Date Time Electronically viewed and signed by .Perla Kang MD, on 04/18/2017 22: 27 DEEN WILLIAM MD Apr 19, 2017 15:22
[2017-04-19] MEDS ORDERED: METOPROLOL 25 MG TAB PO ONE (15:30)
[2017-04-19] MEDS ORDERED: METOPROLOL (XL) 50 MG TAB PO SCH (21:00)
[2017-04-19] MEDS: ATORVASTATIN 10 MG TAB PO SCH (22:08)
[2017-04-19] MEDS: METOPROLOL (XL) 50 MG TAB PO SCH (22:09)
[2017-04-20] VITALS (7 sets, daily range): BP systolic 104–109; BP diastolic 57–61; PULSE 62–70; RESP 16–18
[2017-04-20] MEDS: ACCU-CHEK XX SCH (02:50)
[2017-04-20] MEDS: PANTOPRAZOLE (EC) 40 MG TAB PO SCH (05:54)
[2017-04-20] MEDS: INSULIN ASPART [NOVOLOG] 3 ML PEN SC SCH ×2 (07:38→07:39)
[2017-04-20] MEDS: INSULIN GLARGINE [LANtus] 3 ML PEN SC SCH (08:19)
[2017-04-20] MEDS: MULTIVITAMINS THERAPEUTIC TAB PO SCH (08:20)
[2017-04-20] MEDS: ASPIRIN 325 MG TAB PO SCH (08:20)
[2017-04-20] MEDS: LISINOPRIL 5 MG TAB PO SCH (08:20)
[2017-04-20] MEDS: TAMSULOSIN (SR) 0.4 MG CAP PO SCH (08:21)
[2017-04-20] MEDS: METOPROLOL (XL) 50 MG TAB PO SCH (08:21)
[2017-04-20 08:32] LABS: ADD UMIC YES; URINE BILIRUBIN (Dip) NEGATIVE (NEGATIVE); URINE BLOOD (Dip) NEGATIVE (NEGATIVE); URINE COLOR LT. YELLOW (YELLOW); URINE GLUCOSE (Dip) >=1000 % (NEGATIVE); URINE KETONES (Dip) NEGATIVE (NEGATIVE); URINE LEUKOCYTE ESTERASE (Dip) TRACE (NEGATIVE); URINE NITRITE (Dip) NEGATIVE (NEGATIVE); URINE TOTAL PROTEIN (Dip) NEGATIVE (NEGATIVE); URINE UROBILINOGEN (Dip) 0.2 E.U./dL (0.1-1.0)
[2017-04-20 08:42] LABS: URINE RBCS 0-2 /HPF (0)
[2017-04-20 09:37] LABS: BARBITURATES Negative (NEGATIVE); BENZODIAZEPINES Negative (NEGATIVE); CANNABINOIDS Negative (NEGATIVE); COCAINE Negative (NEGATIVE); OPIATES Negative (NEGATIVE)
[2017-04-20] MEDS ORDERED: INSULIN ASPART [NOVOLOG] 3 ML PEN SC SCH ×2 (11:50)
--- NOTE | 2017-04-20 12:29 | CONS ---
Date/Time of Note Date/Time of Note DATE: 04/20/17 TIME: 12:27 Assessment/Plan Assessment/Plan Chief Complaint/Hosp Course Left-sided weakness Problems: Additional Assessment/Plan 61 year old male with history of uncontrolled DM, HTN admitted with weakness, SOB and exam suggestive of right sided basal ganglia lacunar infarction from small vessel disease, possible new ischemic injury or recrudescence of symptoms due to hyperglycemia and metabolic issues. MRI of the brain showed acute, non hemorrhagic right lee pontine infarct, chronic left montanez radiata, left basal ganglia and right internal capsule lacunar infarcts, mild chronic microvascular ischemic disease and diffuse volume loss. Plan -continue aspirin -LDL: 86 target should be less than 70 recommend starting low dose Lipitor 10 mg qhs -2D ECHO with bubble study -maintain euglycemic, maintain normotensive blood pressure goal SBP <130 for lacunar type infarctions -recheck HBA1C first speciment was not sent -anemia work up -DVT ppx -PT/OT/Speech evaluation may benefit from ARU Consultation Date/Type/Reason Admit Date/Time April 17, 2017 at 16:37 Initial Consult Date 04/17/17 Type of Consultation: Neurology Referring Provider: JOANNA LEACH MD 24 HR Interval Summary Free Text/Dictation Doing well. No problems swallowing or walking. Has been having physical therapy. Constitutional: no complaints Exam/Review of Systems Vital Signs Vitals Vital Signs Date Time Temp Pulse Resp B/P Pulse Ox O2 Delivery O2 Flow Rate FiO2 04/20/17 12:18 62 04/20/17 11:23 98.0 18 109/57 97 04/17/17 18:16 Room Air 04/17/17 15:59 2 Intake and Output 04/19/17 04/19/17 04/20/17 15:00 23:00 07:00 Intake Total 800 ml 480 ml Output Total 400 ml Balance 800 ml 80 ml Exam Constitutional: alert, oriented, well developed Psych: nl mood/affect, no complaints Head: atraumatic, normocephalic Eyes: EOMI, nl conjunctiva, nl lids, nl sclera ENMT: mucosa pink and moist, nl external ears & nose, nl lips & teeth, nl nasal mucosa & septum Neck: non-tender, supple Respiratory: clear to auscultation, normal air movement Cardiovascular: nl pulses, regular rate and rhythm Gastrointestinal: nl liver, spleen, non-tender, soft Musculoskeletal: nl extremities to inspection Extremities: normal pulses Neurological: MOLD CHANGER II-XII intact, nl mental status, nl speech, other (My left hemiparesis) Results Result Diagram: 04/17/17 1555 04/17/17 1555 Results 24 hrs Laboratory Tests Test 04/19/17 17:26 04/19/17 21:51 04/20/17 01:30 04/20/17 02:44 Bedside Glucose 195 243 H 333 H Urine Color LT. YELLOW Urine Clarity CLEAR Urine pH 6.0 Urine Specific [place] 1.010 Urine Ketones NEGATIVE Urine Nitrite NEGATIVE Urine Bilirubin NEGATIVE Urine Urobilinogen 0.2 E.U./dL Urine Leukocyte Esterase TRACE H Urine Microscopic RBC 0-2 Urine Microscopic WBC 0-2 Urine Hemoglobin NEGATIVE Urine Glucose >=1000 Urine Total Protein NEGATIVE Urine Opiates Screen Negative Urine Barbiturates Negative Urine Amphetamines Screen Negative Urine Benzodiazepines Screen Negative Urine Cocaine Screen Negative Urine Cannabinoids Negative Test 04/20/17 07:29 04/20/17 11:28 Bedside Glucose 316 H 347 H Medications Medications Current Medications Aspirin (Aspirin) 325 mg DAILY PO Last administered on 04/20/17 08:20; Admin Dose 325 MG; Start 04/18/17 at 09:00 Acetaminophen (Tylenol Tab) 650 mg Q6H PRN PO PAIN AND OR ELEVATED TEMP; Start 04/17/17 at 19:00 Diagnostic Test (Pha) (Accu-Chek) 1 ea 02 XX Last administered on 04/20/17 02: 50; Admin Dose 1 EA; Start 04/18/17 at 02:00 Miscellaneous Information 1 ea NOTE XX ; Start 04/17/17 at 21:00 Glucose (Glutose) 15 gm Q15M PRN PO DECREASED GLUCOSE; Start 04/17/17 at 21:00 Glucose (Glutose) 22.5 gm Q15M PRN PO DECREASED GLUCOSE; Start 04/17/17 at 21: 00 Dextrose (D50w Syringe) 25 ml Q15M PRN IV DECREASED GLUCOSE; Start 04/17/17 at 21:00 Dextrose (D50w Syringe) 50 ml Q15M PRN IV DECREASED GLUCOSE; Start 04/17/17 at 21:00 Glucagon (Glucagen) 1 mg Q15M PRN IM DECREASED GLUCOSE; Start 04/17/17 at 21:00 Glucose (Glutose) 15 gm Q15M PRN BUCCAL DECREASED GLUCOSE; Start 04/17/17 at 21 :00 Atorvastatin Calcium (Lipitor) 10 mg HS PO Last administered on 04/19/17 22:08 ; Admin Dose 10 MG; Start 04/18/17 at 21:00 Lisinopril (Zestril) 5 mg DAILY PO Last administered on 04/20/17 08:20; Admin Dose 5 MG; Start 04/18/17 at 12:00 Multivitamins Therapeutic (Theragran) 1 tab DAILY PO Last administered on 08:20; Admin Dose 1 TAB; Start 04/18/17 at 12:00 Tamsulosin HCl (Flomax) 0.4 mg DAILY PO Last administered on 04/20/17 08:21; Admin Dose 0.4 MG; Start 04/18/17 at 12:00 Pantoprazole (Protonix Tab) 40 mg DAILY@06 PO Last administered on 04/20/17 05: 54; Admin Dose 40 MG; Start 04/19/17 at 06:00 Metoprolol Succinate (Toprol Xl) 50 mg BID PO Last administered on 04/20/17 08: 21; Admin Dose 50 MG; Start 04/19/17 at 21:00 Insulin Glargine (Lantus) 30 unit QAM SC ; Start 04/21/17 at 09:00 EDEN WILLIAM MD Apr 20, 2017 12:29
[2017-04-21] MEDS ORDERED: ACCU-CHEK XX SCH (02:00)
[2017-04-21] MEDS ORDERED: INSULIN GLARGINE [LANtus] 3 ML PEN SC SCH (09:00)
--- NOTE | 2017-04-23 21:08 | DS ---
Date/Time of Note Date/Time of Note DATE: 04/23/17 TIME: 21:03 Discharge Summary Admission/Discharge Info Admit Date/Time April 17, 2017 at 16:37 Discharge Date/Time Apr 20, 2017 at 13:20 Final Diagnosis right CVA with left hemiparesis Patient Condition: Serious Procedures CT scan and MRI Hx of Present Illness Pt with history of non compliance and hypertension was admitted with right sided CVA. Pt developed left sided weakness. After optimization of the BP pt was transferred to rehabilitation center Hospital Course Left-sided weakness Home Meds Active Scripts Pantoprazole* (Pantoprazole*) 40 Mg Tablet.dr, 40 MG PO DAILY@06 for 30 Days Prov:ZO YO 04/19/17 Insulin Glargine* (Lantus*) 100 Unit/Ml Soln, 25 UNIT SC QAM for 30 Days Prov:ZO YO 04/19/17 Insulin Aspart* (Novolog Insulin Pen*) 100 Unit/Ml Soln, 0 UNIT SC WITH MEALS BEDTIME for 10 Days Prov:ZO YO 04/19/17 Insulin Aspart* (Novolog Insulin Pen*) 100 Unit/Ml Soln, 8 UNIT SC WITH MEALS for 10 Days Prov:ZO YO 04/19/17 Aspirin (Aspirin Lite-Coat) 325 Mg Tablet, 325 MG PO DAILY for 30 Days, TAB Prov:ZO YO 04/19/17 Acetaminophen (MAPAP) 325 Mg Tablet, 650 MG PO Q6H Y for PAIN AND OR ELEVATED TEMP for 10 Days, TAB Prov:ZO YO 04/19/17 [Accu-Chek] 1 MARY EA No Conflict Check, 1 EA XX 02 Prov:ZO YO 04/19/17 Reported Medications Insulin Isophan/Regular (Humulin 70/30) 100 Units/Ml Susp, 10 UNIT SC HS, EA 04/18/17 Insulin Isophan/Regular (Humulin 70/30) 100 Units/Ml Susp, 40 UNIT SC AC BREAKFAST, EA 04/18/17 Multivitamins* (Theragran*) 1 Tab Tab, 1 TAB PO DAILY, TAB 04/18/17 Tamsulosin Hcl* (Tamsulosin Hcl*) 0.4 Mg Cap.er.24h, 0.4 MG PO DAILY, CAP 04/18/17 Aspirin* (Aspirin* Chew) 81 Mg Tab.chew, 81 MG PO DAILY, TAB.CHEW 04/18/17 Lisinopril* (Lisinopril*) 5 Mg Tablet, 5 MG PO DAILY, #30 TAB 04/18/17 Simvastatin (Simvastatin) 10 Mg Tablet, 10 MG PO DAILY, #30 TAB 04/18/17 Discontinued Reported Medications [sugar balance] No Conflict Check, 1 TAB PO BID 04/18/17 Follow-up Plan Rehabilitation in acute center Primary Care Provider Tiki Damian Time spent on discharge: < 30 minutes ZO YO Apr 23, 2017 21:08
== END 2017-04-20 13:20 | DRG 65 ==
LOC: E/R 14:44 → TEL 16:37
PROVIDERS: ADMIT Internal Medicine Nephrology; ATTEND Internal Medicine Nephrology
DX: I63.9 Cerebral infarction, unspecified (principal); G81.94 Hemiplegia, unspecified affecting left nondominant side; E11.65 Type 2 diabetes mellitus with hyperglycemia; I10 Essential (primary) hypertension; E87.1 Hypo-osmolality and hyponatremia; Z91.19 Patient's noncompliance with other medical treatment and regimen
CPT/HCPCS: 36415; 70450; 70544; 70551; 71010; 80048; 80061; 80307; 81001; 82962; 83036; 84484; 85025; 85610; 85730; 92610; 93005; 93306; 93880; 97163; C9113; J1815; J7042

== ENCOUNTER 2017-04-19 17:12 | Inpatient (IN) | payer OTHER ==
[~2017-04-19] VITALS: Ht 160 cm; Wt 79.6 kg
[~2017-04-19 17:12] MED LIST: ACET325T40 PO; ASPI325T4 PO; ASPI81TA3 PO; Accu-Chek XX; LANT3I SC; LISI-313 PO; MULTI PO; NOVO3I SC; NOVO7030 SC; PANT40TA4 PO; TAMS0.4C2 PO; ZOC10 PO
[2017-04-20 14:00] VITALS: BP 113/59; PULSE 67; RESP 18
[2017-04-20] MEDS ORDERED: GLUCOSE GEL 15 GRAM TUBE PO PRN ×2 (15:00)
[2017-04-20] MEDS ORDERED: ACETAMINOPHEN 325 MG TAB PO PRN (15:00)
[2017-04-20] MEDS ORDERED: GLUCOSE GEL 15 GRAM TUBE BUCCAL PRN (15:00)
[2017-04-20] MEDS ORDERED: TAMSULOSIN (SR) 0.4 MG CAP PO SCH (15:00)
[2017-04-20] MEDS ORDERED: DEXTROSE 50% 50 ML SYRINGE IV PRN ×2 (15:00)
[2017-04-20] MEDS ORDERED: GLUCAGON 1 MG INJ IM PRN (15:00)
--- NOTE | 2017-04-20 15:45 | HP ---
Date/Time of Note Date/Time of Note DATE: 04/20/17 TIME: 15:38 Assessment/Plan VTE Prophylaxis VTE Prophylaxis Intervention: ambulation Lines/Catheters Urinary Cath still in place: No Assessment/Plan Chief Complaint/Hosp Course 1.Subacute cerebrovascular accident ( Acute, non hemorrhagic right lee pontine infarct) with left side weakness. 2. Diabetes mellitus, uncontrolled. 3. Hypertension, uncontrolled. 4. BPH 5. noncompliance. Problems: Assessment/Plan 1. PT as ordered 2. Glycemic control and BP control 3. pt is on ASPIRIN HPI/ROS Admit Date/Time Admit Date/Time Apr 20, 2017 at 14:21 Hx of Present Illness Pt was hospitalised for subacute cerebrovascular accident. CT was abnormal. MRI showed acute, non hemorrhagic right lee pontine infarct. Pt has history of diabetes mellitus, hypertension, BPH. He is not compliant with his medications.Presented on admission left side of the body weakness did not improved, pt is transferred for rehabilitation ROS Constitutional: other (left side weakness) Eyes: no complaints ENT: no complaints Cardiovascular: chest pain, no complaints, No edema, No lightheadedness, No orthopenea, No other, No palpitations, No paroxysmal nocturnal dyspnea Gastrointestinal: constipation, No blood, No decreased appetite, No diarrhea, No flatus, No nausea, No no complaints, No other, No pain, No passing stool, No vomiting Musculoskeletal: bone/joint pain, other (left side weakness), No back pain, No neck pain, No no complaints, No restricted range of motion, No swelling Skin: bruising, erythema, laceration, no complaints, other, pruritis, rash, skin lesions PMH/Family/Social Past Medical History Medical History: diabetes, high cholesterol, hypertension, other (BPH) Past Surgical History Past Surgical Hx: no surgical history Family History Significant Family History: hypertension Social History Alcohol Use: none Smoking Status: Never smoker Drug Use: none Exam/Review of Systems Vital Signs Vitals Vital Signs Date Time Temp Pulse Resp B/P Pulse Ox O2 Delivery O2 Flow Rate FiO2 04/20/17 14:00 99.0 67 18 113/59 97 Room Air Exam Constitutional: alert, oriented Psych: nl mood/affect, no complaints Head: normocephalic Neck: supple Respiratory: clear to auscultation Cardiovascular: regular rate and rhythm Gastrointestinal: soft Genitourinary - Male: nl penis Musculoskeletal: muscle weakness (left side) Extremities: normal pulses Neurological: DIRECTOR MONEY II-XII intact Medications Medications Current Medications Aspirin (Aspirin) 325 mg DAILY PO ; Start 04/20/17 at 15:00 Acetaminophen (Tylenol Tab) 650 mg Q6H PRN PO PAIN AND OR ELEVATED TEMP; Start 04/20/17 at 15:00 Diagnostic Test (Pha) (Accu-Chek) 1 ea 02 XX ; Start 04/20/17 at 15:00 Miscellaneous Information 1 ea NOTE XX ; Start 04/20/17 at 15:00 Glucose (Glutose) 15 gm Q15M PRN PO DECREASED GLUCOSE; Start 04/20/17 at 15:00 Glucose (Glutose) 22.5 gm Q15M PRN PO DECREASED GLUCOSE; Start 04/20/17 at 15:00 Dextrose (D50w Syringe) 25 ml Q15M PRN IV DECREASED GLUCOSE; Start 04/20/17 at 15:00 Dextrose (D50w Syringe) 50 ml Q15M PRN IV DECREASED GLUCOSE; Start 04/20/17 at 15:00 Glucagon (Glucagen) 1 mg Q15M PRN IM DECREASED GLUCOSE; Start 04/20/17 at 15:00 Glucose (Glutose) 15 gm Q15M PRN BUCCAL DECREASED GLUCOSE; Start 04/20/17 at 15: 00 Atorvastatin Calcium (Lipitor) 10 mg HS PO ; Start 04/20/17 at 15:00 Lisinopril (Zestril) 5 mg DAILY PO ; Start 04/20/17 at 15:00 Multivitamins Therapeutic (Theragran) 1 tab DAILY PO ; Start 04/20/17 at 15:00 Pantoprazole (Protonix Tab) 40 mg DAILY@06 PO ; Start 04/20/17 at 15:00 Metoprolol Succinate (Toprol Xl) 50 mg BID PO ; Start 04/20/17 at 15:00 Insulin Glargine (Lantus) 30 unit QAM SC ; Start 04/21/17 at 09:00 Tamsulosin HCl (Flomax) 0.4 mg HS PO ; Start 04/21/17 at 21:00 ZO YO Apr 20, 2017 15:45
[2017-04-20] MEDS: INSULIN ASPART [NOVOLOG] 3 ML PEN SC SCH ×3 (17:32→20:31)
[2017-04-20 17:47] LABS: ADD UMIC NO; URINE BILIRUBIN (Dip) NEGATIVE (NEGATIVE); URINE BLOOD (Dip) NEGATIVE (NEGATIVE); URINE COLOR LT. YELLOW (YELLOW); URINE KETONES (Dip) NEGATIVE (NEGATIVE); URINE LEUKOCYTE ESTERASE (Dip) NEGATIVE (NEGATIVE); URINE NITRITE (Dip) NEGATIVE (NEGATIVE); URINE TOTAL PROTEIN (Dip) NEGATIVE (NEGATIVE); URINE UROBILINOGEN (Dip) 0.2 E.U./dL (0.1-1.0)
[2017-04-20] MEDS ORDERED: MAGNESIUM HYDROXIDE 30ML CUP PO PRN (20:00)
[2017-04-20] MEDS ORDERED: BISACODYL 10 MG SUPP PR PRN (20:00)
[2017-04-20 20:12] VITALS: BP 93/55; RESP 18
[2017-04-20] MEDS: ATORVASTATIN 10 MG TAB PO SCH (20:27)
[2017-04-20] MEDS: METOPROLOL (XL) 50 MG TAB PO SCH (20:33)
[2017-04-20] MEDS: DOCUSATE SODIUM 100 MG CAP PO SCH (20:33)
[2017-04-21] MEDS: ACCU-CHEK XX SCH (02:00)
[2017-04-21] MEDS: PANTOPRAZOLE (EC) 40 MG TAB PO SCH (06:18)
[2017-04-21 06:20] VITALS: BP 136/64; PULSE 59
[2017-04-21 07:42] LABS: ADD SCAN DIFF NO
[2017-04-21 07:47] LABS: BASOPHIL # 0.1 10^3/ul (0.0-0.1); BASOPHILS % 0.9 % (0.0-2.0); EOSINOPHILS # 0.3 10^3/ul (0.0-0.5); EOSINOPHILS % 3.6 % (0.0-7.0); HEMATOCRIT 41.6 % (42.0-52.0); HEMOGLOBIN 14.3 g/dl (14.0-18.0); LYMPHOCYTES # 2.3 10^3/ul (0.8-2.9); LYMPHOCYTES % 24.8 % (15.0-51.0); MEAN CORPUSCULAR HEMOGLOBIN 30.9 pg (29.0-33.0); MEAN CORPUSCULAR HGB CONC 34.4 g/dl (32.0-37.0); MEAN CORPUSCULAR VOLUME 89.8 fl (82.0-101.0); MEAN PLATELET VOLUME 10.9 fl (7.4-10.4); MONOCYTE # 0.8 10^3/ul (0.3-0.9); MONOCYTES % 8.7 % (0.0-11.0); NEUTROPHIL # 5.6 10^3/ul (1.6-7.5); NEUTROPHILS % 61.7 % (39.0-77.0); PLATELET COUNT 268 10^3/UL (140-415); RED BLOOD COUNT 4.63 10^6/ul (4.70-6.10); RED CELL DISTRIBUTION WIDTH 13.6 % (11.5-14.5); WHITE BLOOD COUNT 9.1 10^3/ul (4.8-10.8)
[2017-04-21] MEDS: INSULIN ASPART [NOVOLOG] 3 ML PEN SC SCH ×7 (07:51→20:39)
[2017-04-21] MEDS: ASPIRIN 325 MG TAB PO SCH (08:35)
[2017-04-21] MEDS: DOCUSATE SODIUM 100 MG CAP PO SCH ×2 (08:35→20:32)
[2017-04-21] MEDS: LISINOPRIL 5 MG TAB PO SCH (08:36)
[2017-04-21] MEDS: METOPROLOL (XL) 50 MG TAB PO SCH ×2 (08:36→20:33)
[2017-04-21] MEDS: INSULIN GLARGINE [LANtus] 3 ML PEN SC SCH (08:38)
[2017-04-21] MEDS: MULTIVITAMINS THERAPEUTIC TAB PO SCH (08:41)
[2017-04-21 09:42] LABS: ALBUMIN 4.5 g/dl (3.3-4.9); ALBUMIN/GLOBULIN RATIO 1.73; BILIRUBIN,INDIRECT 0.5 mg/dl (0-1.1); BILIRUBIN,TOTAL 0.5 mg/dl (0.2-1.3); CALCIUM 9.2 mg/dl (8.4-10.2); CREATININE 0.99 mg/dl (0.61-1.24); POTASSIUM 5.2 mmol/L (3.5-5.1); TOTAL PROTEIN 7.1 g/dl (6.1-8.1)
--- NOTE | 2017-04-21 13:44 | CONS ---
DATE OF ADMISSION: 04/20/2017 DATE OF CONSULTATION: 04/21/2017 REHABILITATION POST-ADMISSION PHYSICIAN EVALUATION Date of admission to the rehabilitation unit: 04/20/2017. REHABILITATION IMPAIRMENT CATEGORY: Acute right pontine infarct cerebrovascular accident with left- sided weakness. ACTIVE COMORBIDITIES: 1. Diabetes mellitus type 2. 2. Hypertension. 3. Hyponatremia. 4. Impairments in self-care, mobility and cognition. HISTORY OF PRESENT ILLNESS: The patient is a pleasant 61-year-old gentleman with a history of diabe kesha mellitus type 2 and hypertension who was admitted with left-sided weakness, numbness and hypergl ycemia. A head CT was performed and demonstrated a left basal ganglia, montanez radiata and right int ernal capsule lacunar infarcts in addition to left subinsular chronic lacunar infarct. An MRI of th e brain did demonstrate an acute right hemipontine infarct, and also left montanez radiata, left basal ganglia, and right internal capsule lacunar infarcts. The patient was noted to have dysphagia in a ddition to significant impairments in self-care and mobility as compared to baseline, and has been c leared to transfer to the rehabilitation unit for comprehensive interdisciplinary rehab care. FUNCTIONAL HISTORY: Prior to recent events, he was independent in self-care tasks and mobility. Cu rrently, the patient requires minimal to moderate assist for self-care and mobility tasks. I have reviewed the preadmission screen and the patient's current functional status is consistent wi th the preadmission screen. SOCIAL HISTORY: The patient reportedly lives at home with family and hopes to return there upon dis charge. PAST MEDICAL HISTORY: 1. Diabetes mellitus type 2. 2. Hypertension. CURRENT MEDICATIONS: 1. Aspirin 325 p.o. daily. 2. Lipitor 10 mg p.o. at bedtime. 3. Insulin sliding scale. 4. Lantus 30 units subq q.a.m. 5. Zestril 5 mg p.o. daily. 6. Toprol-XL 50 mg p.o. b.i.d. 7. Protonix 40 mg p.o. daily. 8. Flomax 0.4 mg p.o. daily. ALLERGIES: THE PATIENT WITH NO KNOWN DRUG ALLERGIES. PHYSICAL EXAMINATION: VITAL SIGNS: The patient is currently afebrile with stable vital signs. HEENT: The extraocular motions appear intact. Oropharynx clear. NECK: Supple. LUNGS: Clear anteriorly. CARDIAC: S1, S2. ABDOMEN: Soft, nontender, positive bowel sounds. NEUROLOGIC: He is awake and alert. He is oriented to person and hospital. He will follow simple 1 -step commands. He demonstrates antigravity good strength in the right upper and lower extremity, h e has antigravity strength in left upper and lower extremity. PLAN: The patient has been admitted for comprehensive interdisciplinary acute rehab and is anticipa ciarra to tolerate 3 hours of daily therapy in divided doses for at least 5/7 days a week. The treatme nt plan will include: 1. Physical therapy to focus on bed mobility, transfers, and household ambulation with the goal of having the patient reach a standby assist level. 2. Occupational therapy to focus on hygiene, grooming, dressing, bathing, and toileting activities with the goal of having the patient reach a standby assist level. 3. Rehabilitation nursing for carryover of therapeutic interventions, the goal of continent of gatito l and bladder, and the goal of patient and family education with regards to the aforementioned issue s. 4. Speech therapy for full cognitive assessment and retraining in addition to dysphagia management with the goal of having the patient return to baseline cognition and meet nutritional needs by mouth . REHABILITATION BARRIER: Cognition. INTERVENTION FOR BARRIER: Comprehensive interdisciplinary approach. ESTIMATED LENGTH OF STAY: 14 days. DISPOSITION GOAL: Home. I acknowledge that I performed a full physical examination on this patient within 24 hours of admiss ion to the rehabilitation unit and I believe the patient is a good candidate for comprehensive inter disciplinary rehab care and is anticipated to make reasonable goals in a reasonable period of time a s outlined above. Dictated By: MAGALIE BASILIO/STEPHANIE Conf#: [id number] DID#: [id number]
--- NOTE | 2017-04-21 14:20 | PN ---
Date/Time of Note Date/Time of Note DATE: 04/21/17 TIME: 14:19 Assessment/Plan VTE Prophylaxis VTE Prophylaxis Intervention: other Lines/Catheters IV [facility] Type (from [facility] Saline Lock Urinary Cath still in place: No Assessment/Plan Chief Complaint/Hosp Course dm cva htn plan per order Problems: Subjective 24 Hr Interval Summary Genitourinary: no complaints Musculoskeletal: no complaints Neurologic: no complaints Exam/Review of Systems Vital Signs Vitals Vital Signs Date Time Temp Pulse Resp B/P Pulse Ox O2 Delivery O2 Flow Rate FiO2 04/21/17 06:20 59 136/64 04/20/17 20:12 98.3 18 96 04/20/17 14:00 Room Air Intake and Output 04/20/17 04/20/17 04/21/17 15:00 23:00 07:00 Intake Total 840 ml 300 ml Output Total 200 ml 400 ml Balance 640 ml -100 ml Exam Respiratory: clear to auscultation Cardiovascular: regular rate and rhythm Gastrointestinal: soft Musculoskeletal: nl extremities to inspection Results Result Diagram: 04/21/17 0650 04/21/17 0620 Results 24 hrs Laboratory Tests Test 04/20/17 15:30 04/20/17 17:26 04/20/17 20:25 04/21/17 06:20 Urine Color LT. YELLOW Urine Clarity CLEAR Urine pH 5.5 Urine Specific [place] 1.010 Urine Ketones NEGATIVE Urine Nitrite NEGATIVE Urine Bilirubin NEGATIVE Urine Urobilinogen 0.2 E.U./dL Urine Leukocyte Esterase NEGATIVE Urine Hemoglobin NEGATIVE Urine Glucose 0.5% H Urine Total Protein NEGATIVE Bedside Glucose 147 177 Sodium Level 137 Potassium Level 5.2 H Chloride Level 106 Carbon Dioxide Level 21 Anion Gap 15 Blood Urea Nitrogen 23 H Creatinine 0.99 Glucose Level 282 H Calcium Level 9.2 Total Bilirubin 0.5 Direct Bilirubin 0.00 Indirect Bilirubin 0.5 Aspartate Amino Transf (AST/SGOT) 34 Alanine Aminotransferase (ALT/SGPT) 42 Alkaline Phosphatase 72 Total Protein 7.1 Albumin 4.5 Globulin 2.60 Albumin/Globulin Ratio 1.73 Test 04/21/17 06:50 04/21/17 07:43 04/21/17 08:15 04/21/17 12:20 White Blood Count 9.1 Red Blood Count 4.63 L Hemoglobin 14.3 Hematocrit 41.6 L Mean Corpuscular Volume 89.8 Mean Corpuscular Hemoglobin 30.9 Mean Corpuscular Hemoglobin Concent 34.4 Red Cell Distribution Width 13.6 Platelet Count 268 Mean Platelet Volume 10.9 H Neutrophils % 61.7 Lymphocytes % 24.8 Monocytes % 8.7 Eosinophils % 3.6 Basophils % 0.9 Nucleated Red Blood Cells % 0.0 Neutrophils # 5.6 Lymphocytes # 2.3 Monocytes # 0.8 Eosinophils # 0.3 Basophils # 0.1 Nucleated Red Blood Cells # 0.0 Bedside Glucose 252 H 219 Prostate Specific Antigen 0.7 Medications Medications Current Medications Aspirin (Aspirin) 325 mg DAILY PO Last administered on 04/21/17 08:35; Admin Dose 325 MG; Start 04/20/17 at 15:00 Acetaminophen (Tylenol Tab) 650 mg Q6H PRN PO PAIN AND OR ELEVATED TEMP; Start 04/20/17 at 15:00 Diagnostic Test (Pha) (Accu-Chek) 1 ea 02 XX ; Start 04/20/17 at 15:00 Miscellaneous Information 1 ea NOTE XX ; Start 04/20/17 at 15:00 Glucose (Glutose) 15 gm Q15M PRN PO DECREASED GLUCOSE; Start 04/20/17 at 15:00 Glucose (Glutose) 22.5 gm Q15M PRN PO DECREASED GLUCOSE; Start 04/20/17 at 15:00 Dextrose (D50w Syringe) 25 ml Q15M PRN IV DECREASED GLUCOSE; Start 04/20/17 at 15:00 Dextrose (D50w Syringe) 50 ml Q15M PRN IV DECREASED GLUCOSE; Start 04/20/17 at 15:00 Glucagon (Glucagen) 1 mg Q15M PRN IM DECREASED GLUCOSE; Start 04/20/17 at 15:00 Glucose (Glutose) 15 gm Q15M PRN BUCCAL DECREASED GLUCOSE; Start 04/20/17 at 15: 00 Atorvastatin Calcium (Lipitor) 10 mg HS PO Last administered on 04/20/17 20:27 ; Admin Dose 10 MG; Start 04/20/17 at 15:00 Lisinopril (Zestril) 5 mg DAILY PO Last administered on 04/21/17 08:36; Admin Dose 5 MG; Start 04/20/17 at 15:00 Multivitamins Therapeutic (Theragran) 1 tab DAILY PO Last administered on 08:41; Admin Dose 1 TAB; Start 04/20/17 at 15:00 Pantoprazole (Protonix Tab) 40 mg DAILY@06 PO Last administered on 04/21/17 06: 18; Admin Dose 40 MG; Start 04/20/17 at 15:00 Metoprolol Succinate (Toprol Xl) 50 mg BID PO Last administered on 04/21/17 08: 36; Admin Dose 50 MG; Start 04/20/17 at 15:00 Insulin Glargine (Lantus) 30 unit QAM SC Last administered on 04/21/17 08:38; Admin Dose 30 UNIT; Start 04/21/17 at 09:00 Tamsulosin HCl (Flomax) 0.4 mg HS PO ; Start 04/21/17 at 21:00 Docusate Sodium (Colace) 100 mg BID PO Last administered on 04/21/17 08:35; Admin Dose 100 MG; Start 04/20/17 at 21:00 Magnesium Hydroxide (Milk Of Mag) 30 ml BID PRN PO CONSTIPATION; Start 04/20/17 at 20:00 Bisacodyl (Dulcolax Supp) 10 mg DAILY PRN [place] CONSTIPATION; Start 04/20/17 at 20: 00 JOANNA LEACH MD Apr 21, 2017 14:20
[2017-04-21 20:30] VITALS: BP 135/69; PULSE 69; RESP 18
[2017-04-21] MEDS: ATORVASTATIN 10 MG TAB PO SCH (20:32)
[2017-04-21] MEDS: TAMSULOSIN (SR) 0.4 MG CAP PO SCH (20:32)
[2017-04-22 02:00] VITALS: BP 120/60; PULSE 61
[2017-04-22] MEDS: ACCU-CHEK XX SCH (02:18)
[2017-04-22] MEDS: PANTOPRAZOLE (EC) 40 MG TAB PO SCH (06:11)
[2017-04-22 07:02] LABS: CALCIUM 8.8 mg/dl (8.4-10.2); CREATININE 1.18 mg/dl (0.61-1.24); POTASSIUM 4.7 mmol/L (3.5-5.1)
[2017-04-22 07:30] VITALS: BP 111/60; RESP 18
[2017-04-22] MEDS: INSULIN ASPART [NOVOLOG] 3 ML PEN SC SCH ×7 (08:12→20:39)
[2017-04-22] MEDS: ASPIRIN 325 MG TAB PO SCH (08:18)
[2017-04-22] MEDS: DOCUSATE SODIUM 100 MG CAP PO SCH ×2 (08:19→20:40)
[2017-04-22] MEDS: MULTIVITAMINS THERAPEUTIC TAB PO SCH (08:19)
[2017-04-22] MEDS: METOPROLOL (XL) 50 MG TAB PO SCH ×2 (08:20→20:40)
[2017-04-22] MEDS: LISINOPRIL 5 MG TAB PO SCH (08:21)
[2017-04-22] MEDS: INSULIN GLARGINE [LANtus] 3 ML PEN SC SCH (08:24)
--- NOTE | 2017-04-22 12:04 | CONS ---
Date/Time of Note Date/Time of Note DATE: 04/22/17 TIME: 12:04 Consult Date/Type/Reason Admit Date/Time Apr 20, 2017 at 14:21 Initial Consult Date Objective Vital Signs Date Time Temp Pulse Resp B/P Pulse Ox O2 Delivery O2 Flow Rate FiO2 04/22/17 07:30 98.7 68 18 111/60 95 04/21/17 20:30 Room Air Intake and Output 04/21/17 04/21/17 04/22/17 15:00 23:00 07:00 Intake Total 480 ml 450 ml Balance 480 ml 450 ml INTERDISCIPLINARY TEAM CONFERENCE BOWEL- Cont BLADDER-Cont SKIN- intact OT- DRESSING-min BATHING-min TOILETING-min PT- BED MOBILITY-min TRANSFERS-min AMBULATION-min 50 feet SPEECH- COGNITION-sba A/P- Interdisciplinary team conference held today. Please see interdisciplinary sheet. Working toward d.c. on 04/26 with post discharge follow up of physical therapy, occupational therapy. Results/Medications Result Diagram: 04/21/17 0650 04/22/17 0608 Results 24 hrs Laboratory Tests Test 04/21/17 12:20 04/21/17 17:21 04/21/17 20:31 04/22/17 02:03 Bedside Glucose 219 201 222 H 261 H Test 04/22/17 06:08 04/22/17 07:49 Sodium Level 137 Potassium Level 4.7 Chloride Level 104 Carbon Dioxide Level 26 Anion Gap 12 Blood Urea Nitrogen 23 H Creatinine 1.18 Glucose Level 284 H Calcium Level 8.8 Bedside Glucose 321 H Medications Current Medications Aspirin (Aspirin) 325 mg DAILY PO Last administered on 04/22/17 08:18; Admin Dose 325 MG; Start 04/20/17 at 15:00 Acetaminophen (Tylenol Tab) 650 mg Q6H PRN PO PAIN AND OR ELEVATED TEMP; Start 04/20/17 at 15:00 Diagnostic Test (Pha) (Accu-Chek) 1 ea 02 XX Last administered on 04/22/17 02: 18; Admin Dose 1 EA; Start 04/20/17 at 15:00 Miscellaneous Information 1 ea NOTE XX ; Start 04/20/17 at 15:00 Glucose (Glutose) 15 gm Q15M PRN PO DECREASED GLUCOSE; Start 04/20/17 at 15:00 Glucose (Glutose) 22.5 gm Q15M PRN PO DECREASED GLUCOSE; Start 04/20/17 at 15:00 Dextrose (D50w Syringe) 25 ml Q15M PRN IV DECREASED GLUCOSE; Start 04/20/17 at 15:00 Dextrose (D50w Syringe) 50 ml Q15M PRN IV DECREASED GLUCOSE; Start 04/20/17 at 15:00 Glucagon (Glucagen) 1 mg Q15M PRN IM DECREASED GLUCOSE; Start 04/20/17 at 15:00 Glucose (Glutose) 15 gm Q15M PRN BUCCAL DECREASED GLUCOSE; Start 04/20/17 at 15: 00 Atorvastatin Calcium (Lipitor) 10 mg HS PO Last administered on 04/21/17 20:32 ; Admin Dose 10 MG; Start 04/20/17 at 15:00 Lisinopril (Zestril) 5 mg DAILY PO Last administered on 04/22/17 08:21; Admin Dose 5 MG; Start 04/20/17 at 15:00 Multivitamins Therapeutic (Theragran) 1 tab DAILY PO Last administered on 08:19; Admin Dose 1 TAB; Start 04/20/17 at 15:00 Pantoprazole (Protonix Tab) 40 mg DAILY@06 PO Last administered on 04/22/17 06: 11; Admin Dose 40 MG; Start 04/20/17 at 15:00 Metoprolol Succinate (Toprol Xl) 50 mg BID PO Last administered on 04/22/17 08: 20; Admin Dose 50 MG; Start 04/20/17 at 15:00 Insulin Glargine (Lantus) 30 unit QAM SC Last administered on 04/22/17 08:24; Admin Dose 30 UNIT; Start 04/21/17 at 09:00 Tamsulosin HCl (Flomax) 0.4 mg HS PO Last administered on 04/21/17 20:32; Admin Dose 0.4 MG; Start 04/21/17 at 21:00 Docusate Sodium (Colace) 100 mg BID PO Last administered on 04/21/17 20:32; Admin Dose 100 MG; Start 04/20/17 at 21:00 Magnesium Hydroxide (Milk Of Mag) 30 ml BID PRN PO CONSTIPATION; Start 04/20/17 at 20:00 Bisacodyl (Dulcolax Supp) 10 mg DAILY PRN [place] CONSTIPATION; Start 04/20/17 at 20: 00 MAGALIE RYAN MD Apr 22, 2017 12:04
--- NOTE | 2017-04-22 18:57 | PN ---
Date/Time of Note Date/Time of Note DATE: 04/22/17 TIME: 18:56 Assessment/Plan VTE Prophylaxis VTE Prophylaxis Intervention: other Lines/Catheters IV [facility]ter Type (from [facility] Saline Lock Urinary Cath still in place: No Assessment/Plan Chief Complaint/Hosp Course dm cva htn plan per order insulin Problems: Subjective 24 Hr Interval Summary Respiratory: no complaints Cardiovascular: no complaints Exam/Review of Systems Vital Signs Vitals Vital Signs Date Time Temp Pulse Resp B/P Pulse Ox O2 Delivery O2 Flow Rate FiO2 04/22/17 07:30 98.7 68 18 111/60 95 04/21/17 20:30 Room Air Intake and Output 04/21/17 04/21/17 04/22/17 15:00 23:00 07:00 Intake Total 480 ml 450 ml Balance 480 ml 450 ml Exam Neck: supple Respiratory: clear to auscultation Cardiovascular: regular rate and rhythm Gastrointestinal: soft Musculoskeletal: nl extremities to inspection Results Result Diagram: 04/21/17 0650 04/22/17 0608 Results 24 hrs Laboratory Tests Test 04/21/17 20:31 04/22/17 02:03 04/22/17 06:08 04/22/17 07:49 Bedside Glucose 222 H 261 H 321 H Sodium Level 137 Potassium Level 4.7 Chloride Level 104 Carbon Dioxide Level 26 Anion Gap 12 Blood Urea Nitrogen 23 H Creatinine 1.18 Glucose Level 284 H Calcium Level 8.8 Test 04/22/17 12:15 04/22/17 17:09 Bedside Glucose 261 H 300 H Medications Medications Current Medications Aspirin (Aspirin) 325 mg DAILY PO Last administered on 04/22/17 08:18; Admin Dose 325 MG; Start 04/20/17 at 15:00 Acetaminophen (Tylenol Tab) 650 mg Q6H PRN PO PAIN AND OR ELEVATED TEMP; Start 04/20/17 at 15:00 Diagnostic Test (Pha) (Accu-Chek) 1 ea 02 XX Last administered on 04/22/17 02: 18; Admin Dose 1 EA; Start 04/20/17 at 15:00 Miscellaneous Information 1 ea NOTE XX ; Start 04/20/17 at 15:00 Glucose (Glutose) 15 gm Q15M PRN PO DECREASED GLUCOSE; Start 04/20/17 at 15:00 Glucose (Glutose) 22.5 gm Q15M PRN PO DECREASED GLUCOSE; Start 04/20/17 at 15:00 Dextrose (D50w Syringe) 25 ml Q15M PRN IV DECREASED GLUCOSE; Start 04/20/17 at 15:00 Dextrose (D50w Syringe) 50 ml Q15M PRN IV DECREASED GLUCOSE; Start 04/20/17 at 15:00 Glucagon (Glucagen) 1 mg Q15M PRN IM DECREASED GLUCOSE; Start 04/20/17 at 15:00 Glucose (Glutose) 15 gm Q15M PRN BUCCAL DECREASED GLUCOSE; Start 04/20/17 at 15: 00 Atorvastatin Calcium (Lipitor) 10 mg HS PO Last administered on 04/21/17 20:32 ; Admin Dose 10 MG; Start 04/20/17 at 15:00 Lisinopril (Zestril) 5 mg DAILY PO Last administered on 04/22/17 08:21; Admin Dose 5 MG; Start 04/20/17 at 15:00 Multivitamins Therapeutic (Theragran) 1 tab DAILY PO Last administered on 08:19; Admin Dose 1 TAB; Start 04/20/17 at 15:00 Pantoprazole (Protonix Tab) 40 mg DAILY@06 PO Last administered on 04/22/17 06: 11; Admin Dose 40 MG; Start 04/20/17 at 15:00 Metoprolol Succinate (Toprol Xl) 50 mg BID PO Last administered on 04/22/17 08: 20; Admin Dose 50 MG; Start 04/20/17 at 15:00 Insulin Glargine (Lantus) 30 unit QAM SC Last administered on 04/22/17 08:24; Admin Dose 30 UNIT; Start 04/21/17 at 09:00 Tamsulosin HCl (Flomax) 0.4 mg HS PO Last administered on 04/21/17 20:32; Admin Dose 0.4 MG; Start 04/21/17 at 21:00 Docusate Sodium (Colace) 100 mg BID PO Last administered on 04/21/17 20:32; Admin Dose 100 MG; Start 04/20/17 at 21:00 Magnesium Hydroxide (Milk Of Mag) 30 ml BID PRN PO CONSTIPATION; Start 04/20/17 at 20:00 Bisacodyl (Dulcolax Supp) 10 mg DAILY PRN [place] CONSTIPATION; Start 04/20/17 at 20: 00 JOANNA LEACH MD Apr 22, 2017 18:57
[2017-04-22 20:05] VITALS: BP 126/65; RESP 18
[2017-04-22] MEDS: TAMSULOSIN (SR) 0.4 MG CAP PO SCH (20:35)
[2017-04-22] MEDS: ATORVASTATIN 10 MG TAB PO SCH (20:35)
[2017-04-23] MEDS: ACCU-CHEK XX SCH (02:12)
[2017-04-23] MEDS: PANTOPRAZOLE (EC) 40 MG TAB PO SCH (05:42)
[2017-04-23 05:45] VITALS: BP 108/59; PULSE 60
[2017-04-23] MEDS: INSULIN ASPART [NOVOLOG] 3 ML PEN SC SCH ×7 (08:15→20:28)
[2017-04-23] MEDS: DOCUSATE SODIUM 100 MG CAP PO SCH ×2 (08:16→20:24)
[2017-04-23] MEDS: MULTIVITAMINS THERAPEUTIC TAB PO SCH (08:16)
[2017-04-23] MEDS: ASPIRIN 325 MG TAB PO SCH (08:16)
[2017-04-23] MEDS: METOPROLOL (XL) 50 MG TAB PO SCH ×2 (08:18→20:24)
[2017-04-23] MEDS: LISINOPRIL 5 MG TAB PO SCH (08:18)
[2017-04-23 08:40] VITALS: BP 118/65; PULSE 65
[2017-04-23] MEDS: INSULIN GLARGINE [LANtus] 3 ML PEN SC SCH (09:29)
--- NOTE | 2017-04-23 12:28 | CONS ---
Date/Time of Note Date/Time of Note DATE: 04/23/17 TIME: 12:28 Consult Date/Type/Reason Admit Date/Time Apr 20, 2017 at 14:21 Subjective Comfortable Objective pulm-cta sba ambulation Vital Signs Date Time Temp Pulse Resp B/P Pulse Ox O2 Delivery O2 Flow Rate FiO2 04/23/17 05:45 60 108/59 04/22/17 20:05 98.2 18 95 04/21/17 20:30 Room Air Intake and Output 04/22/17 04/22/17 04/23/17 15:00 23:00 07:00 Intake Total 1060 ml 150 ml Balance 1060 ml 150 ml Results/Medications Result Diagram: 04/21/17 0650 04/22/17 0608 Results 24 hrs Laboratory Tests Test 04/22/17 17:09 04/22/17 20:30 04/23/17 02:03 04/23/17 07:31 Bedside Glucose 300 H 250 H 327 H 288 H Test 04/23/17 11:50 Bedside Glucose 214 Medications Current Medications Aspirin (Aspirin) 325 mg DAILY PO Last administered on 04/23/17 08:16; Admin Dose 325 MG; Start 04/20/17 at 15:00 Acetaminophen (Tylenol Tab) 650 mg Q6H PRN PO PAIN AND OR ELEVATED TEMP Last administered on 04/23/17 08:26; Admin Dose 650 MG; Start 04/20/17 at 15:00 Diagnostic Test (Pha) (Accu-Chek) 1 ea 02 XX Last administered on 04/23/17 02: 12; Admin Dose 1 EA; Start 04/20/17 at 15:00 Miscellaneous Information 1 ea NOTE XX ; Start 04/20/17 at 15:00 Glucose (Glutose) 15 gm Q15M PRN PO DECREASED GLUCOSE; Start 04/20/17 at 15:00 Glucose (Glutose) 22.5 gm Q15M PRN PO DECREASED GLUCOSE; Start 04/20/17 at 15:00 Dextrose (D50w Syringe) 25 ml Q15M PRN IV DECREASED GLUCOSE; Start 04/20/17 at 15:00 Dextrose (D50w Syringe) 50 ml Q15M PRN IV DECREASED GLUCOSE; Start 04/20/17 at 15:00 Glucagon (Glucagen) 1 mg Q15M PRN IM DECREASED GLUCOSE; Start 04/20/17 at 15:00 Glucose (Glutose) 15 gm Q15M PRN BUCCAL DECREASED GLUCOSE; Start 04/20/17 at 15: 00 Atorvastatin Calcium (Lipitor) 10 mg HS PO Last administered on 04/22/17 20:35 ; Admin Dose 10 MG; Start 04/20/17 at 15:00 Lisinopril (Zestril) 5 mg DAILY PO Last administered on 04/23/17 08:18; Admin Dose 5 MG; Start 04/20/17 at 15:00 Multivitamins Therapeutic (Theragran) 1 tab DAILY PO Last administered on 08:16; Admin Dose 1 TAB; Start 04/20/17 at 15:00 Pantoprazole (Protonix Tab) 40 mg DAILY@06 PO Last administered on 04/23/17 05: 42; Admin Dose 40 MG; Start 04/20/17 at 15:00 Metoprolol Succinate (Toprol Xl) 50 mg BID PO Last administered on 04/23/17 08: 18; Admin Dose 50 MG; Start 04/20/17 at 15:00 Insulin Glargine (Lantus) 30 unit QAM SC Last administered on 04/23/17 09:29; Admin Dose 30 UNIT; Start 04/21/17 at 09:00 Tamsulosin HCl (Flomax) 0.4 mg HS PO Last administered on 04/22/17 20:35; Admin Dose 0.4 MG; Start 04/21/17 at 21:00 Docusate Sodium (Colace) 100 mg BID PO Last administered on 04/23/17 08:16; Admin Dose 100 MG; Start 04/20/17 at 21:00 Magnesium Hydroxide (Milk Of Mag) 30 ml BID PRN PO CONSTIPATION; Start 04/20/17 at 20:00 Bisacodyl (Dulcolax Supp) 10 mg DAILY PRN [place] CONSTIPATION; Start 04/20/17 at 20: 00 Assessment/Plan Additional Assessment/Plan Rehab-Acute right pontine infarct cerebrovascular accident with left-sided weakness. Continue rehab program Diabetes mellitus type 2. Hypertension. Hyponatremia. AMGALIE RYAN MD Apr 23, 2017 12:28
[2017-04-23 19:54] VITALS: BP 108/53; RESP 18
[2017-04-23] MEDS: TAMSULOSIN (SR) 0.4 MG CAP PO SCH (20:24)
[2017-04-23] MEDS: ATORVASTATIN 10 MG TAB PO SCH (20:24)
--- NOTE | 2017-04-23 22:44 | PN ---
Date/Time of Note Date/Time of Note DATE: 04/23/17 TIME: 22:43 Assessment/Plan VTE Prophylaxis VTE Prophylaxis Intervention: other Lines/Catheters IV C[facility]ter Type (from [facility] Saline Lock Urinary Cath still in place: No Assessment/Plan Chief Complaint/Hosp Course dm cva htn plan per order insulin ptot Problems: Subjective 24 Hr Interval Summary Respiratory: no complaints Cardiovascular: no complaints Exam/Review of Systems Vital Signs Vitals Vital Signs Date Time Temp Pulse Resp B/P Pulse Ox O2 Delivery O2 Flow Rate FiO2 04/23/17 19:54 98.3 75 18 108/53 93 04/21/17 20:30 Room Air Intake and Output 04/22/17 04/22/17 04/23/17 15:00 23:00 07:00 Intake Total 1060 ml 150 ml Balance 1060 ml 150 ml Exam Neck: supple Respiratory: clear to auscultation Cardiovascular: regular rate and rhythm Gastrointestinal: soft Musculoskeletal: nl extremities to inspection Extremities: normal pulses Results Result Diagram: 04/21/17 0650 04/22/17 0608 Results 24 hrs Laboratory Tests Test 04/23/17 02:03 04/23/17 07:31 04/23/17 11:50 04/23/17 17:06 Bedside Glucose 327 H 288 H 214 218 Test 04/23/17 20:22 Bedside Glucose 221 H Medications Medications Current Medications Aspirin (Aspirin) 325 mg DAILY PO Last administered on 04/23/17 08:16; Admin Dose 325 MG; Start 04/20/17 at 15:00 Acetaminophen (Tylenol Tab) 650 mg Q6H PRN PO PAIN AND OR ELEVATED TEMP Last administered on 04/23/17 08:26; Admin Dose 650 MG; Start 04/20/17 at 15:00 Diagnostic Test (Pha) (Accu-Chek) 1 ea 02 XX Last administered on 04/23/17 02: 12; Admin Dose 1 EA; Start 04/20/17 at 15:00 Miscellaneous Information 1 ea NOTE XX ; Start 04/20/17 at 15:00 Glucose (Glutose) 15 gm Q15M PRN PO DECREASED GLUCOSE; Start 04/20/17 at 15:00 Glucose (Glutose) 22.5 gm Q15M PRN PO DECREASED GLUCOSE; Start 04/20/17 at 15:00 Dextrose (D50w Syringe) 25 ml Q15M PRN IV DECREASED GLUCOSE; Start 04/20/17 at 15:00 Dextrose (D50w Syringe) 50 ml Q15M PRN IV DECREASED GLUCOSE; Start 04/20/17 at 15:00 Glucagon (Glucagen) 1 mg Q15M PRN IM DECREASED GLUCOSE; Start 04/20/17 at 15:00 Glucose (Glutose) 15 gm Q15M PRN BUCCAL DECREASED GLUCOSE; Start 04/20/17 at 15: 00 Atorvastatin Calcium (Lipitor) 10 mg HS PO Last administered on 04/23/17 20:24 ; Admin Dose 10 MG; Start 04/20/17 at 15:00 Lisinopril (Zestril) 5 mg DAILY PO Last administered on 04/23/17 08:18; Admin Dose 5 MG; Start 04/20/17 at 15:00 Multivitamins Therapeutic (Theragran) 1 tab DAILY PO Last administered on 08:16; Admin Dose 1 TAB; Start 04/20/17 at 15:00 Pantoprazole (Protonix Tab) 40 mg DAILY@06 PO Last administered on 04/23/17 05: 42; Admin Dose 40 MG; Start 04/20/17 at 15:00 Metoprolol Succinate (Toprol Xl) 50 mg BID PO Last administered on 04/23/17 08: 18; Admin Dose 50 MG; Start 04/20/17 at 15:00 Insulin Glargine (Lantus) 30 unit QAM SC Last administered on 04/23/17 09:29; Admin Dose 30 UNIT; Start 04/21/17 at 09:00 Tamsulosin HCl (Flomax) 0.4 mg HS PO Last administered on 04/23/17 20:24; Admin Dose 0.4 MG; Start 04/21/17 at 21:00 Docusate Sodium (Colace) 100 mg BID PO Last administered on 04/23/17 20:24; Admin Dose 100 MG; Start 04/20/17 at 21:00 Magnesium Hydroxide (Milk Of Mag) 30 ml BID PRN PO CONSTIPATION; Start 04/20/17 at 20:00 Bisacodyl (Dulcolax Supp) 10 mg DAILY PRN [place] CONSTIPATION; Start 04/20/17 at 20: 00 JOANNA LEACH MD Apr 23, 2017 22:44
[2017-04-24] MEDS: ACCU-CHEK XX SCH (02:33)
[2017-04-24] MEDS: PANTOPRAZOLE (EC) 40 MG TAB PO SCH (06:13)
[2017-04-24 08:04] VITALS: BP 109/57; RESP 18
[2017-04-24] MEDS: INSULIN ASPART [NOVOLOG] 3 ML PEN SC SCH ×7 (08:43→20:34)
[2017-04-24] MEDS: INSULIN GLARGINE [LANtus] 3 ML PEN SC SCH (08:45)
[2017-04-24] MEDS: DOCUSATE SODIUM 100 MG CAP PO SCH ×2 (08:47→20:32)
[2017-04-24] MEDS: METOPROLOL (XL) 50 MG TAB PO SCH ×2 (08:47→20:33)
[2017-04-24] MEDS: MULTIVITAMINS THERAPEUTIC TAB PO SCH (08:47)
[2017-04-24] MEDS: LISINOPRIL 5 MG TAB PO SCH (08:51)
[2017-04-24] MEDS: ASPIRIN 325 MG TAB PO SCH (08:51)
--- NOTE | 2017-04-24 11:17 | CONS ---
Date/Time of Note Date/Time of Note DATE: 04/24/17 TIME: 11:16 Consult Date/Type/Reason Admit Date/Time Apr 20, 2017 at 14:21 Subjective comfortable Objective pulm-cta sba ambulation Vital Signs Date Time Temp Pulse Resp B/P Pulse Ox O2 Delivery O2 Flow Rate FiO2 04/24/17 08:04 98.3 67 18 109/57 97 04/21/17 20:30 Room Air Intake and Output 04/23/17 04/23/17 04/24/17 15:00 23:00 07:00 Intake Total 700 ml 600 ml Balance 700 ml 600 ml Results/Medications Result Diagram: 04/21/17 0650 04/22/17 0608 Results 24 hrs Laboratory Tests Test 04/23/17 11:50 04/23/17 17:06 04/23/17 20:22 04/24/17 02:03 Bedside Glucose 214 218 221 H 187 Test 04/24/17 08:26 Bedside Glucose 217 Medications Current Medications Aspirin (Aspirin) 325 mg DAILY PO Last administered on 04/24/17 08:51; Admin Dose 325 MG; Start 04/20/17 at 15:00 Acetaminophen (Tylenol Tab) 650 mg Q6H PRN PO PAIN AND OR ELEVATED TEMP Last administered on 04/23/17 08:26; Admin Dose 650 MG; Start 04/20/17 at 15:00 Diagnostic Test (Pha) (Accu-Chek) 1 ea 02 XX Last administered on 04/24/17 02: 33; Admin Dose 1 EA; Start 04/20/17 at 15:00 Miscellaneous Information 1 ea NOTE XX ; Start 04/20/17 at 15:00 Glucose (Glutose) 15 gm Q15M PRN PO DECREASED GLUCOSE; Start 04/20/17 at 15:00 Glucose (Glutose) 22.5 gm Q15M PRN PO DECREASED GLUCOSE; Start 04/20/17 at 15:00 Dextrose (D50w Syringe) 25 ml Q15M PRN IV DECREASED GLUCOSE; Start 04/20/17 at 15:00 Dextrose (D50w Syringe) 50 ml Q15M PRN IV DECREASED GLUCOSE; Start 04/20/17 at 15:00 Glucagon (Glucagen) 1 mg Q15M PRN IM DECREASED GLUCOSE; Start 04/20/17 at 15:00 Glucose (Glutose) 15 gm Q15M PRN BUCCAL DECREASED GLUCOSE; Start 04/20/17 at 15: 00 Atorvastatin Calcium (Lipitor) 10 mg HS PO Last administered on 04/23/17 20:24 ; Admin Dose 10 MG; Start 04/20/17 at 15:00 Lisinopril (Zestril) 5 mg DAILY PO Last administered on 04/24/17 08:51; Admin Dose 5 MG; Start 04/20/17 at 15:00 Multivitamins Therapeutic (Theragran) 1 tab DAILY PO Last administered on 08:47; Admin Dose 1 TAB; Start 04/20/17 at 15:00 Pantoprazole (Protonix Tab) 40 mg DAILY@06 PO Last administered on 04/24/17 06: 13; Admin Dose 40 MG; Start 04/20/17 at 15:00 Metoprolol Succinate (Toprol Xl) 50 mg BID PO Last administered on 04/24/17 08: 47; Admin Dose 50 MG; Start 04/20/17 at 15:00 Insulin Glargine (Lantus) 30 unit QAM SC Last administered on 04/24/17 08:45; Admin Dose 30 UNIT; Start 04/21/17 at 09:00 Tamsulosin HCl (Flomax) 0.4 mg HS PO Last administered on 04/23/17 20:24; Admin Dose 0.4 MG; Start 04/21/17 at 21:00 Docusate Sodium (Colace) 100 mg BID PO Last administered on 04/24/17 08:47; Admin Dose 100 MG; Start 04/20/17 at 21:00 Magnesium Hydroxide (Milk Of Mag) 30 ml BID PRN PO CONSTIPATION; Start 04/20/17 at 20:00 Bisacodyl (Dulcolax Supp) 10 mg DAILY PRN [place] CONSTIPATION; Start 04/20/17 at 20: 00 Assessment/Plan Additional Assessment/Plan Rehab-Acute right pontine infarct cerebrovascular accident with left-sided weakness. Continue treatment plan Diabetes mellitus type 2. Hypertension. Hyponatremia. MAGALIE RYAN MD Apr 24, 2017 11:17
[2017-04-24] MEDS ORDERED: BARIUM SULFATE 135 ML (E-Z HD) PO ONE (14:47)
--- NOTE | 2017-04-24 15:20 | RADRPT ---
PROCEDURE: Video swallow examination of the esophagus CLINICAL INDICATION: aspiration TECHNIQUE: Real time video fluoroscopy of the lateral neck was performed. The patient was given b arium in multiple different consistencies by the speech pathologist. Fluoroscopy time: 3.2 minutes COMPARISON: None. FINDINGS: There is no evidence of aspiration. IMPRESSION: No evidence of aspiration. Please refer to the speech pathology notes for more information and recommendations. RPTAT: KK Physician Janae Date Time Electronically viewed and signed by Physician Janae on 04/24/2017 15:20 RA/
[2017-04-24 20:00] VITALS: BP 124/61; RESP 18
[2017-04-24] MEDS: ATORVASTATIN 10 MG TAB PO SCH (20:32)
[2017-04-24] MEDS: TAMSULOSIN (SR) 0.4 MG CAP PO SCH (20:32)
--- NOTE | 2017-04-24 23:25 | PN ---
Date/Time of Note Date/Time of Note DATE: 04/24/17 TIME: 23:24 Assessment/Plan VTE Prophylaxis VTE Prophylaxis Intervention: other Lines/Catheters IV C[facility] Type (from [facility] Saline Lock Urinary Cath still in place: No Assessment/Plan Chief Complaint/Hosp Course dm cva htn plan per order insulin ptot Problems: Subjective 24 Hr Interval Summary Cardiovascular: No lightheadedness Gastrointestinal: no complaints Exam/Review of Systems Vital Signs Vitals Vital Signs Date Time Temp Pulse Resp B/P Pulse Ox O2 Delivery O2 Flow Rate FiO2 04/24/17 20:00 98.7 70 18 124/61 97 04/21/17 20:30 Room Air Intake and Output 04/23/17 04/23/17 04/24/17 15:00 23:00 07:00 Intake Total 700 ml 600 ml Balance 700 ml 600 ml Exam Respiratory: clear to auscultation Cardiovascular: regular rate and rhythm Gastrointestinal: bowel sounds, soft Results Result Diagram: 04/21/17 0650 04/22/17 0608 Results 24 hrs Laboratory Tests Test 04/24/17 02:03 04/24/17 08:26 04/24/17 12:01 04/24/17 17:31 Bedside Glucose 187 217 202 200 Test 04/24/17 20:33 Bedside Glucose 166 Medications Medications Current Medications Aspirin (Aspirin) 325 mg DAILY PO Last administered on 04/24/17 08:51; Admin Dose 325 MG; Start 04/20/17 at 15:00 Acetaminophen (Tylenol Tab) 650 mg Q6H PRN PO PAIN AND OR ELEVATED TEMP Last administered on 04/23/17 08:26; Admin Dose 650 MG; Start 04/20/17 at 15:00 Diagnostic Test (Pha) (Accu-Chek) 1 ea 02 XX Last administered on 04/24/17 02: 33; Admin Dose 1 EA; Start 04/20/17 at 15:00 Miscellaneous Information 1 ea NOTE XX ; Start 04/20/17 at 15:00 Glucose (Glutose) 15 gm Q15M PRN PO DECREASED GLUCOSE; Start 04/20/17 at 15:00 Glucose (Glutose) 22.5 gm Q15M PRN PO DECREASED GLUCOSE; Start 04/20/17 at 15:00 Dextrose (D50w Syringe) 25 ml Q15M PRN IV DECREASED GLUCOSE; Start 04/20/17 at 15:00 Dextrose (D50w Syringe) 50 ml Q15M PRN IV DECREASED GLUCOSE; Start 04/20/17 at 15:00 Glucagon (Glucagen) 1 mg Q15M PRN IM DECREASED GLUCOSE; Start 04/20/17 at 15:00 Glucose (Glutose) 15 gm Q15M PRN BUCCAL DECREASED GLUCOSE; Start 04/20/17 at 15: 00 Atorvastatin Calcium (Lipitor) 10 mg HS PO Last administered on 04/24/17 20:32 ; Admin Dose 10 MG; Start 04/20/17 at 15:00 Lisinopril (Zestril) 5 mg DAILY PO Last administered on 04/24/17 08:51; Admin Dose 5 MG; Start 04/20/17 at 15:00 Multivitamins Therapeutic (Theragran) 1 tab DAILY PO Last administered on 08:47; Admin Dose 1 TAB; Start 04/20/17 at 15:00 Pantoprazole (Protonix Tab) 40 mg DAILY@06 PO Last administered on 04/24/17 06: 13; Admin Dose 40 MG; Start 04/20/17 at 15:00 Metoprolol Succinate (Toprol Xl) 50 mg BID PO Last administered on 04/24/17 20: 33; Admin Dose 50 MG; Start 04/20/17 at 15:00 Insulin Glargine (Lantus) 30 unit QAM SC Last administered on 04/24/17 08:45; Admin Dose 30 UNIT; Start 04/21/17 at 09:00 Tamsulosin HCl (Flomax) 0.4 mg HS PO Last administered on 04/24/17 20:32; Admin Dose 0.4 MG; Start 04/21/17 at 21:00 Docusate Sodium (Colace) 100 mg BID PO Last administered on 04/24/17 20:32; Admin Dose 100 MG; Start 04/20/17 at 21:00 Magnesium Hydroxide (Milk Of Mag) 30 ml BID PRN PO CONSTIPATION; Start 04/20/17 at 20:00 Bisacodyl (Dulcolax Supp) 10 mg DAILY PRN [place] CONSTIPATION; Start 04/20/17 at 20: 00 JOANNA LEACH MD Apr 24, 2017 23:25
[2017-04-25] MEDS: ACCU-CHEK XX SCH (02:00)
[2017-04-25] MEDS: PANTOPRAZOLE (EC) 40 MG TAB PO SCH (06:05)
[2017-04-25] MEDS: LISINOPRIL 5 MG TAB PO SCH (09:03)
[2017-04-25] MEDS: DOCUSATE SODIUM 100 MG CAP PO SCH ×2 (09:03→20:41)
[2017-04-25] MEDS: MULTIVITAMINS THERAPEUTIC TAB PO SCH (09:03)
[2017-04-25] MEDS: METOPROLOL (XL) 50 MG TAB PO SCH ×2 (09:04→20:41)
[2017-04-25] MEDS ORDERED: BARIUM SULFATE 135 ML (E-Z HD) PO ONE (09:08)
[2017-04-25] MEDS: INSULIN ASPART [NOVOLOG] 3 ML PEN SC SCH ×7 (09:52→20:42)
[2017-04-25] MEDS: INSULIN GLARGINE [LANtus] 3 ML PEN SC SCH (09:53)
[2017-04-25] MEDS: ASPIRIN 325 MG TAB PO SCH (09:55)
--- NOTE | 2017-04-25 10:38 | RADRPT ---
PROCEDURE: Radiological examination of the esophagus CLINICAL INDICATION: Dysphagia , rule out reflux TECHNIQUE: The patient was NPO. The patient was given a small amount of thin barium via a cup. Subs equently videofluoroscopy was performed was performed. Routine esophageal images were obtained. Fluoroscopy time: 0.8 min Number of the images: 6 COMPARISON: No comparison study available. FINDINGS: There is evidence of aspiration in the beginning of the procedure. The procedure was terminated at t hat time. The visualized portions of the esophagus are unremarkable. There is no evidence of obstruction. Th ere is a grossly normal mucosal pattern. RPTAT: AA IMPRESSION: Positive for aspiration. A call report was made and the findings discussed with Arnoldo Hicks at 04/25/2017 10:23:55 AM. .Shad Barroso MD, MD Date Time Electronically viewed and signed by .Shad Barroso MD, MD on 04/25/2017 10:38 .S/
--- NOTE | 2017-04-25 12:21 | CONS ---
Date/Time of Note Date/Time of Note DATE: 04/25/17 TIME: 12:21 Consult Date/Type/Reason Admit Date/Time Apr 20, 2017 at 14:21 Subjective comfortable Objective pulm-cta s ambulation Vital Signs Date Time Temp Pulse Resp B/P Pulse Ox O2 Delivery O2 Flow Rate FiO2 04/24/17 20:00 98.7 70 18 124/61 97 04/21/17 20:30 Room Air Intake and Output 04/24/17 04/24/17 04/25/17 15:00 23:00 07:00 Intake Total 1200 ml 600 ml Balance 1200 ml 600 ml Results/Medications Result Diagram: 04/21/17 0650 04/22/17 0608 Results 24 hrs Laboratory Tests Test 04/24/17 17:31 04/24/17 20:33 04/25/17 07:44 Bedside Glucose 200 166 245 H Medications Current Medications Aspirin (Aspirin) 325 mg DAILY PO Last administered on 04/25/17 09:55; Admin Dose 325 MG; Start 04/20/17 at 15:00 Acetaminophen (Tylenol Tab) 650 mg Q6H PRN PO PAIN AND OR ELEVATED TEMP Last administered on 04/23/17 08:26; Admin Dose 650 MG; Start 04/20/17 at 15:00 Diagnostic Test (Pha) (Accu-Chek) 1 ea 02 XX Last administered on 04/24/17 02: 33; Admin Dose 1 EA; Start 04/20/17 at 15:00 Miscellaneous Information 1 ea NOTE XX ; Start 04/20/17 at 15:00 Glucose (Glutose) 15 gm Q15M PRN PO DECREASED GLUCOSE; Start 04/20/17 at 15:00 Glucose (Glutose) 22.5 gm Q15M PRN PO DECREASED GLUCOSE; Start 04/20/17 at 15:00 Dextrose (D50w Syringe) 25 ml Q15M PRN IV DECREASED GLUCOSE; Start 04/20/17 at 15:00 Dextrose (D50w Syringe) 50 ml Q15M PRN IV DECREASED GLUCOSE; Start 04/20/17 at 15:00 Glucagon (Glucagen) 1 mg Q15M PRN IM DECREASED GLUCOSE; Start 04/20/17 at 15:00 Glucose (Glutose) 15 gm Q15M PRN BUCCAL DECREASED GLUCOSE; Start 04/20/17 at 15: 00 Atorvastatin Calcium (Lipitor) 10 mg HS PO Last administered on 04/24/17 20:32 ; Admin Dose 10 MG; Start 04/20/17 at 15:00 Lisinopril (Zestril) 5 mg DAILY PO Last administered on 04/25/17 09:03; Admin Dose 5 MG; Start 04/20/17 at 15:00 Multivitamins Therapeutic (Theragran) 1 tab DAILY PO Last administered on 09:03; Admin Dose 1 TAB; Start 04/20/17 at 15:00 Pantoprazole (Protonix Tab) 40 mg DAILY@06 PO Last administered on 04/25/17 06: 05; Admin Dose 40 MG; Start 04/20/17 at 15:00 Metoprolol Succinate (Toprol Xl) 50 mg BID PO Last administered on 04/25/17 09: 04; Admin Dose 50 MG; Start 04/20/17 at 15:00 Insulin Glargine (Lantus) 30 unit QAM SC Last administered on 04/25/17 09:53; Admin Dose 30 UNIT; Start 04/21/17 at 09:00 Tamsulosin HCl (Flomax) 0.4 mg HS PO Last administered on 04/24/17 20:32; Admin Dose 0.4 MG; Start 04/21/17 at 21:00 Docusate Sodium (Colace) 100 mg BID PO Last administered on 04/25/17 09:03; Admin Dose 100 MG; Start 04/20/17 at 21:00 Magnesium Hydroxide (Milk Of Mag) 30 ml BID PRN PO CONSTIPATION; Start 04/20/17 at 20:00 Bisacodyl (Dulcolax Supp) 10 mg DAILY PRN [place] CONSTIPATION; Start 04/20/17 at 20: 00 Assessment/Plan Additional Assessment/Plan Rehab-Acute right pontine infarct cerebrovascular accident with left-sided weakness. Continue rehab Diabetes mellitus type 2. Hypertension. Hyponatremia. MAGALIE RYAN MD Apr 25, 2017 12:21
--- NOTE | 2017-04-25 17:23 | PN ---
Date/Time of Note Date/Time of Note DATE: 04/25/17 TIME: 17:22 Assessment/Plan VTE Prophylaxis VTE Prophylaxis Intervention: other Lines/Catheters [facility] Saline Lock Urinary Cath still in place: No Assessment/Plan Chief Complaint/Hosp Course dm cva htn plan per order insulin ptot Problems: Subjective 24 Hr Interval Summary Cardiovascular: no complaints Gastrointestinal: no complaints Genitourinary: no complaints Exam/Review of Systems Vital Signs Vitals Vital Signs Date Time Temp Pulse Resp B/P Pulse Ox O2 Delivery O2 Flow Rate FiO2 04/24/17 20:00 98.7 70 18 124/61 97 04/21/17 20:30 Room Air Intake and Output 04/24/17 04/24/17 04/25/17 15:00 23:00 07:00 Intake Total 1200 ml 600 ml Balance 1200 ml 600 ml Exam Neck: supple Respiratory: clear to auscultation Cardiovascular: regular rate and rhythm Gastrointestinal: soft Musculoskeletal: nl extremities to inspection Extremities: normal pulses Neurological: DOCUMENT IMPROVEMENT SPECIALIST II-XII intact Results Result Diagram: 04/21/17 0650 04/22/17 0608 Results 24 hrs Laboratory Tests Test 04/24/17 17:31 04/24/17 20:33 04/25/17 07:44 04/25/17 12:14 Bedside Glucose 200 166 245 H 308 H Test 04/25/17 17:03 Bedside Glucose 164 Medications Medications Current Medications Aspirin (Aspirin) 325 mg DAILY PO Last administered on 04/25/17 09:55; Admin Dose 325 MG; Start 04/20/17 at 15:00 Acetaminophen (Tylenol Tab) 650 mg Q6H PRN PO PAIN AND OR ELEVATED TEMP Last administered on 04/23/17 08:26; Admin Dose 650 MG; Start 04/20/17 at 15:00 Diagnostic Test (Pha) (Accu-Chek) 1 ea 02 XX Last administered on 04/24/17 02: 33; Admin Dose 1 EA; Start 04/20/17 at 15:00 Miscellaneous Information 1 ea NOTE XX ; Start 04/20/17 at 15:00 Glucose (Glutose) 15 gm Q15M PRN PO DECREASED GLUCOSE; Start 04/20/17 at 15:00 Glucose (Glutose) 22.5 gm Q15M PRN PO DECREASED GLUCOSE; Start 04/20/17 at 15:00 Dextrose (D50w Syringe) 25 ml Q15M PRN IV DECREASED GLUCOSE; Start 04/20/17 at 15:00 Dextrose (D50w Syringe) 50 ml Q15M PRN IV DECREASED GLUCOSE; Start 04/20/17 at 15:00 Glucagon (Glucagen) 1 mg Q15M PRN IM DECREASED GLUCOSE; Start 04/20/17 at 15:00 Glucose (Glutose) 15 gm Q15M PRN BUCCAL DECREASED GLUCOSE; Start 04/20/17 at 15: 00 Atorvastatin Calcium (Lipitor) 10 mg HS PO Last administered on 04/24/17 20:32 ; Admin Dose 10 MG; Start 04/20/17 at 15:00 Lisinopril (Zestril) 5 mg DAILY PO Last administered on 04/25/17 09:03; Admin Dose 5 MG; Start 04/20/17 at 15:00 Multivitamins Therapeutic (Theragran) 1 tab DAILY PO Last administered on 09:03; Admin Dose 1 TAB; Start 04/20/17 at 15:00 Pantoprazole (Protonix Tab) 40 mg DAILY@06 PO Last administered on 04/25/17 06: 05; Admin Dose 40 MG; Start 04/20/17 at 15:00 Metoprolol Succinate (Toprol Xl) 50 mg BID PO Last administered on 04/25/17 09: 04; Admin Dose 50 MG; Start 04/20/17 at 15:00 Insulin Glargine (Lantus) 30 unit QAM SC Last administered on 04/25/17 09:53; Admin Dose 30 UNIT; Start 04/21/17 at 09:00 Tamsulosin HCl (Flomax) 0.4 mg HS PO Last administered on 04/24/17 20:32; Admin Dose 0.4 MG; Start 04/21/17 at 21:00 Docusate Sodium (Colace) 100 mg BID PO Last administered on 04/25/17 09:03; Admin Dose 100 MG; Start 04/20/17 at 21:00 Magnesium Hydroxide (Milk Of Mag) 30 ml BID PRN PO CONSTIPATION; Start 04/20/17 at 20:00 Bisacodyl (Dulcolax Supp) 10 mg DAILY PRN [place] CONSTIPATION; Start 04/20/17 at 20: 00 JOANNA LEACH MD Apr 25, 2017 17:23
[2017-04-25 20:00] VITALS: BP 119/62; RESP 18
[2017-04-25] MEDS: ATORVASTATIN 10 MG TAB PO SCH (20:41)
[2017-04-25] MEDS: TAMSULOSIN (SR) 0.4 MG CAP PO SCH (20:41)
[2017-04-26] MEDS: ACCU-CHEK XX SCH (02:00)
[2017-04-26] MEDS: PANTOPRAZOLE (EC) 40 MG TAB PO SCH (06:13)
[2017-04-26 07:30] VITALS: BP 86/52; RESP 18
[2017-04-26] MEDS: INSULIN ASPART [NOVOLOG] 3 ML PEN SC SCH ×4 (07:58→12:30)
[2017-04-26] MEDS: LISINOPRIL 5 MG TAB PO SCH (08:38)
[2017-04-26] MEDS: METOPROLOL (XL) 50 MG TAB PO SCH (08:38)
[2017-04-26] MEDS: DOCUSATE SODIUM 100 MG CAP PO SCH (08:44)
[2017-04-26] MEDS: ASPIRIN 325 MG TAB PO SCH (08:44)
[2017-04-26] MEDS: MULTIVITAMINS THERAPEUTIC TAB PO SCH (08:44)
[2017-04-26] MEDS: INSULIN GLARGINE [LANtus] 3 ML PEN SC SCH (08:52)
--- NOTE | 2017-04-26 15:46 | DS ---
DATE OF ADMISSION: 04/20/2017 DATE OF DISCHARGE: 04/26/2017 ADMISSION DIAGNOSES 1. Acute right pontine infarct cerebrovascular accident with left-sided weakness. 2. Diabetes mellitus type 2. 3. Hypertension. 4. Hyponatremia. 5. Impairments in self-care, mobility and cognition. DISCHARGE DIAGNOSES: 1. Acute right pontine infarct cerebrovascular accident with left-sided weakness. 2. Diabetes mellitus type 2. 3. Hypertension. 4. Improvements in self-care, mobility and cognition. HOSPITAL COURSE: The patient was admitted for comprehensive interdisciplinary acute rehab and made excellent functional gains during the course of the stay. The patient progressed from an initial mo derate assist for self-care and mobility tasks and progressed to the point of standby assist for all areas of self-care and mobility including ambulating over 150 feet with the use of a front-wheel wa lker. The patient is being discharged home with the recommendation of home health physical therapy and occupational therapy followup. DISCHARGE MEDICATIONS: Per the medication reconciliation sheet. CONDITION ON DISCHARGE: Stable. Dictated By: MAGALIE BASILIO/STEPHANIE Conf#: [id number] DID#: [id number]
== END 2017-04-26 14:30 | disposition home health service (06) | DRG 57 ==
LOC: L-D 17:12 → UNDOADMIN 17:12 → VRC 04-20 14:21
PROVIDERS: ADMIT Physical Medicine & Rehabilitation; ATTEND Internal Medicine Nephrology
DX: I69.354 Hemiplegia and hemiparesis following cerebral infarction affecting left non-dominant side (principal); E87.1 Hypo-osmolality and hyponatremia; E11.65 Type 2 diabetes mellitus with hyperglycemia; I10 Essential (primary) hypertension; N40.0 Benign prostatic hyperplasia without lower urinary tract symptoms; Z74.09 Other reduced mobility; Z91.19 Patient's noncompliance with other medical treatment and regimen; Z79.4 Long term (current) use of insulin
CPT/HCPCS: 74230; 80048; 80053; 81003; 82962; 84153; 84154; 85025; 87081; 87086; 92523; 92526; 92610; 92611; 97110; 97112; 97116; 97150; 97163; 97167; 97530; 97535; J1815

== ENCOUNTER 2017-04-30 08:07 | Inpatient (IN) | payer OTHER ==
[~2017-04-30] VITALS: Ht 165.1 cm; Wt 78.3 kg
[2017-04-30] MEDS ORDERED: SOD CHLORIDE 0.9% 1,000 ML IV STA (08:16)
[2017-04-30 08:38] LABS: MODE ROOM AIR; MetHgb Venous 0.1 %; Sample Type Blood venous; Venous COHb 0.2 %; Venous Fraction OxyHgb 87.5 %; Venous Total Hemglobin 14.1 g/dl
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
[2017-04-30 09:06] LABS: ADD SCAN DIFF NO
[2017-04-30 09:08] LABS: BASOPHIL # 0.1 10^3/ul (0.0-0.1); EOSINOPHILS # 0.3 10^3/ul (0.0-0.5); EOSINOPHILS % 3.8 % (0.0-7.0); HEMOGLOBIN 13.8 g/dl (14.0-18.0); LYMPHOCYTES # 1.9 10^3/ul (0.8-2.9); LYMPHOCYTES % 25.5 % (15.0-51.0); MEAN CORPUSCULAR HEMOGLOBIN 31.4 pg (29.0-33.0); MEAN CORPUSCULAR HGB CONC 34.5 g/dl (32.0-37.0); MEAN CORPUSCULAR VOLUME 90.9 fl (82.0-101.0); MEAN PLATELET VOLUME 10.7 fl (7.4-10.4); MONOCYTE # 0.6 10^3/ul (0.3-0.9); MONOCYTES % 7.7 % (0.0-11.0); NEUTROPHIL # 4.5 10^3/ul (1.6-7.5); NEUTROPHILS % 61.7 % (39.0-77.0); PLATELET COUNT 239 10^3/UL (140-415); RED CELL DISTRIBUTION WIDTH 13.5 % (11.5-14.5); WHITE BLOOD COUNT 7.4 10^3/ul (4.8-10.8)
[2017-04-30 09:26] LABS: INR 0.93; PARTIAL THROMBOPLASTIN TIME 24.7 Sec (25.0-35.0); PROTIME 12.5 Sec (12.2-14.2)
[2017-04-30 09:27] LABS: ALANINE AMINOTRANSFERASE 39 IU/L (13-69); ALBUMIN 4.7 g/dl (3.3-4.9); ALBUMIN/GLOBULIN RATIO 1.56; ALKALINE PHOSPHATASE 137 IU/L (42-121); ANION GAP 19 (8-16); ASPARTATE AMINO TRANSFERASE 27 IU/L (15-46); BILIRUBIN,INDIRECT 0.3 mg/dl (0-1.1); BILIRUBIN,TOTAL 0.3 mg/dl (0.2-1.3); BLOOD UREA NITROGEN 16 mg/dl (7-20); CALCIUM 10.2 mg/dl (8.4-10.2); CARBON DIOXIDE 21 mmol/L (21-31); CHLORIDE 106 mmol/L (97-110); CREATININE 0.97 mg/dl (0.61-1.24); GLUCOSE 392 mg/dl (70-220); POTASSIUM 4.4 mmol/L (3.5-5.1); SODIUM 142 mmol/L (135-144); TOTAL PROTEIN 7.7 g/dl (6.1-8.1)
[2017-04-30 09:28] LABS: ETHANOL < 10.0 mg/dl
[2017-04-30 09:37] LABS: TROPONIN-I < 0.012 ng/ml (0.00-0.12)
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
[2017-04-30] MEDS ORDERED: CLOP75TA27 PO (11:12)
[2017-04-30] MEDS ORDERED: ASPI-664 PO (11:12)
[2017-04-30] MEDS ORDERED: NOVO7030 SC (11:13)
[2017-04-30] MEDS ORDERED: ACETAMINOPHEN 325 MG TAB PO PRN ×2 (12:00→18:30)
[2017-04-30] MEDS ORDERED: ONDANSETRON 4 MG INJ IV PRN ×2 (12:00→18:30)
[2017-04-30 13:19] LABS: ADD UMIC YES; UR BILIRUBIN (Dip) NEGATIVE (NEGATIVE); UR BLOOD (Dip) TRACE (NEGATIVE); UR CLARITY CLEAR (CLEAR); UR COLOR LT. YELLOW (YELLOW); UR GLUCOSE (Dip) >=1000 % (NEGATIVE); UR KETONES (Dip) NEGATIVE (NEGATIVE); UR LEUKOCYTE ESTERASE (Dip) NEGATIVE (NEGATIVE); UR NITRITE (Dip) NEGATIVE (NEGATIVE); UR TOTAL PROTEIN (Dip) NEGATIVE (NEGATIVE); UR UROBILINOGEN (Dip) 0.2 E.U./dL (0.1-1.0)
[2017-04-30 13:37] LABS: URINE RBCS NONE SEEN /HPF (0)
[2017-04-30 13:47] LABS: BARBITURATES NEGATIVE (NEGATIVE); BENZODIAZEPINES NEGATIVE (NEGATIVE); CANNABINOIDS NEGATIVE (NEGATIVE); COCAINE NEGATIVE (NEGATIVE); OPIATES NEGATIVE (NEGATIVE)
[2017-04-30 16:58] VITALS: BP 164/83; PULSE 91; Ht 165.1 cm; Wt 78.3 kg
[2017-04-30] MEDS ORDERED: GLUCOSE GEL 15 GRAM TUBE BUCCAL PRN (18:30)
[2017-04-30] MEDS ORDERED: ACETAMINOPHEN 650 MG SUPP PR PRN (18:30)
[2017-04-30] MEDS ORDERED: GLUCAGON 1 MG INJ IM PRN (18:30)
[2017-04-30] MEDS ORDERED: GLUCOSE GEL 15 GRAM TUBE PO PRN ×2 (18:30)
[2017-04-30] MEDS ORDERED: DEXTROSE 50% 50 ML SYRINGE IV PRN ×2 (18:30)
[2017-04-30] MEDS ORDERED: DOCUSATE SODIUM 100 MG CAP PO PRN (18:30)
[2017-04-30] MEDS ORDERED: NACL 0.9% 3 ML SYG IV SCH (18:30)
[2017-04-30] MEDS ORDERED: MAGNESIUM HYDROXIDE 30ML CUP PO PRN (18:30)
[2017-04-30 20:10] VITALS: BP 156/86; RESP 20
[2017-04-30] MEDS: ACETAMINOPHEN 325 MG TAB PO PRN (20:49)
[2017-04-30] MEDS: INSULIN ASPART [NOVOLOG] 3 ML PEN SC SCH (20:56)
[2017-04-30] MEDS ORDERED: INSULIN GLARGINE [LANtus] 3 ML PEN SC ONE (21:30)
--- NOTE | 2017-05-01 00:29 | QN ---
Documentation Comment [id number] JOANNA LEACH MD May 01, 2017 00:29
[2017-05-01] MEDS: ACCU-CHEK XX SCH (01:26)
[2017-05-01] MEDS: PANTOPRAZOLE (EC) 40 MG TAB PO SCH (05:11)
[2017-05-01 05:59] LABS: ADD SCAN DIFF NO
[2017-05-01] MEDS ORDERED: PANTOPRAZOLE (EC) 40 MG TAB PO SCH (06:00)
[2017-05-01 06:04] LABS: BASOPHIL # 0.1 10^3/ul (0.0-0.1); BASOPHILS % 0.6 % (0.0-2.0); EOSINOPHILS # 0.3 10^3/ul (0.0-0.5); EOSINOPHILS % 2.9 % (0.0-7.0); HEMATOCRIT 36.7 % (42.0-52.0); HEMOGLOBIN 12.9 g/dl (14.0-18.0); LYMPHOCYTES # 1.8 10^3/ul (0.8-2.9); LYMPHOCYTES % 19.7 % (15.0-51.0); MEAN CORPUSCULAR HEMOGLOBIN 31.8 pg (29.0-33.0); MEAN CORPUSCULAR HGB CONC 35.1 g/dl (32.0-37.0); MEAN CORPUSCULAR VOLUME 90.4 fl (82.0-101.0); MEAN PLATELET VOLUME 10.5 fl (7.4-10.4); MONOCYTE # 0.7 10^3/ul (0.3-0.9); MONOCYTES % 7.8 % (0.0-11.0); NEUTROPHIL # 6.4 10^3/ul (1.6-7.5); NEUTROPHILS % 68.8 % (39.0-77.0); PLATELET COUNT 241 10^3/UL (140-415); RED BLOOD COUNT 4.06 10^6/ul (4.70-6.10); RED CELL DISTRIBUTION WIDTH 13.2 % (11.5-14.5); WHITE BLOOD COUNT 9.3 10^3/ul (4.8-10.8)
[2017-05-01 06:49] LABS: ALBUMIN 4.4 g/dl (3.3-4.9); ALBUMIN/GLOBULIN RATIO 1.69; BILIRUBIN,INDIRECT 0.7 mg/dl (0-1.1); BILIRUBIN,TOTAL 0.7 mg/dl (0.2-1.3); CALCIUM 9.6 mg/dl (8.4-10.2); CREATININE 0.99 mg/dl (0.61-1.24); POTASSIUM 4.3 mmol/L (3.5-5.1)
[2017-05-01 07:10] VITALS: BP 154/62; RESP 18
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
[2017-05-01] MEDS: INSULIN ASPART [NOVOLOG] 3 ML PEN SC SCH ×7 (08:03→20:35)
[2017-05-01] MEDS: LISINOPRIL 5 MG TAB PO SCH (08:19)
[2017-05-01] MEDS: CLOPIDOGREL 75 MG TAB PO SCH (08:19)
[2017-05-01] MEDS: ASPIRIN (EC) 81 MG TAB PO SCH (08:19)
[2017-05-01] MEDS: MULTIVITAMINS THERAPEUTIC TAB PO SCH (08:19)
[2017-05-01] MEDS: TAMSULOSIN (SR) 0.4 MG CAP PO SCH (08:19)
--- NOTE | 2017-05-01 19:37 | PN ---
Date/Time of Note Date/Time of Note DATE: 05/01/17 TIME: 19:37 Assessment/Plan VTE Prophylaxis VTE Prophylaxis Intervention: other Lines/Catheters [facility]from [facility] Saline Lock Assessment/Plan Chief Complaint/Hosp Course IMPRESSION: 1. Status post mechanical fall. 2. The patient has cerebrovascular accident, old. 3. Hypertension. 4. Diabetes mellitus. plan ambulation Problems: Subjective 24 Hr Interval Summary Subjective hx not possible: other (weakness) Exam/Review of Systems Vital Signs Vitals Vital Signs Date Time Temp Pulse Resp B/P Pulse Ox O2 Delivery O2 Flow Rate FiO2 05/01/17 07:10 98.6 80 18 154/62 96 04/30/17 16:58 Room Air Intake and Output 04/30/17 04/30/17 05/01/17 15:00 23:00 07:00 Intake Total 200 ml 480 ml Output Total 900 ml 550 ml Balance -900 ml 200 ml -70 ml Exam Respiratory: clear to auscultation Cardiovascular: regular rate and rhythm Gastrointestinal: soft Musculoskeletal: nl extremities to inspection Results Result Diagram: 05/01/17 0500 05/01/17 0500 Results 24 hrs Laboratory Tests Test 04/30/17 20:38 04/30/17 21:38 05/01/17 02:08 05/01/17 05:00 Bedside Glucose 351 H 349 H 223 H White Blood Count 9.3 # Red Blood Count 4.06 L Hemoglobin 12.9 L Hematocrit 36.7 L Mean Corpuscular Volume 90.4 Mean Corpuscular Hemoglobin 31.8 Mean Corpuscular Hemoglobin Concent 35.1 Red Cell Distribution Width 13.2 Platelet Count 241 Mean Platelet Volume 10.5 H Neutrophils % 68.8 Lymphocytes % 19.7 Monocytes % 7.8 Eosinophils % 2.9 Basophils % 0.6 Nucleated Red Blood Cells % 0.0 Neutrophils # 6.4 Lymphocytes # 1.8 Monocytes # 0.7 Eosinophils # 0.3 Basophils # 0.1 Nucleated Red Blood Cells # 0.0 Sodium Level 141 Potassium Level 4.3 Chloride Level 105 Carbon Dioxide Level 27 Anion Gap 13 Blood Urea Nitrogen 14 Creatinine 0.99 Glucose Level 215 # Hemoglobin A1c Calcium Level 9.6 Total Bilirubin 0.7 Direct Bilirubin 0.00 Indirect Bilirubin 0.7 Aspartate Amino Transf (AST/SGOT) 27 Alanine Aminotransferase (ALT/SGPT) 35 Alkaline Phosphatase 68 # Total Protein 7.0 Albumin 4.4 Globulin 2.60 Albumin/Globulin Ratio 1.69 Test 05/01/17 08:00 05/01/17 11:58 05/01/17 17:13 Bedside Glucose 237 H 262 H 221 H Medications Medications Current Medications Acetaminophen (Tylenol Tab) 650 mg Q6H PRN PO PAIN AND OR ELEVATED TEMP Last administered on 04/30/17 20:49; Admin Dose 650 MG; Start 04/30/17 at 18:30 Aspirin (Halfprin) 81 mg DAILY PO Last administered on 05/01/17 08:19; Admin Dose 81 MG; Start 05/01/17 at 09:00 Clopidogrel Bisulfate (plaVIX) 75 mg DAILY PO Last administered on 05/01/17 08 :19; Admin Dose 75 MG; Start 05/01/17 at 09:00 Lisinopril (Zestril) 5 mg DAILY PO Last administered on 05/01/17 08:19; Admin Dose 5 MG; Start 05/01/17 at 09:00 Multivitamins Therapeutic (Theragran) 1 tab DAILY PO Last administered on 08:19; Admin Dose 1 TAB; Start 05/01/17 at 09:00 Tamsulosin HCl (Flomax) 0.4 mg DAILY PO Last administered on 05/01/17 08:19; Admin Dose 0.4 MG; Start 05/01/17 at 09:00 Ondansetron HCl (Zofran Inj) 4 mg Q6H PRN IV NAUSEA AND/OR VOMITING; Start at 18:30 Acetaminophen (Tylenol Tab) 650 mg Q6H PRN PO PAIN LEVEL 1-3 OR FEVER; Start at 18:30 Acetaminophen (Tylenol Supp) 650 mg Q6H PRN [place] PAIN LEVEL 1-3 OR FEVER; Start 04/30/17 at 18:30 Docusate Sodium (Colace) 100 mg Q12H PRN PO CONSTIPATION; Start 04/30/17 at 18: 30 Magnesium Hydroxide (Milk Of Mag) 30 ml DAILY PRN PO CONSTIPATION; Start at 18:30 Pantoprazole (Protonix Tab) 40 mg DAILY@06 PO Last administered on 05/01/17 05 :11; Admin Dose 40 MG; Start 6/14/17 at 06:00 Diagnostic Test (Pha) (Accu-Chek) 1 ea 02 XX ; Start 05/01/17 at 02:00 Miscellaneous Information 1 ea NOTE XX ; Start 04/30/17 at 18:30 Glucose (Glutose) 15 gm Q15M PRN PO DECREASED GLUCOSE; Start 04/30/17 at 18:30 Glucose (Glutose) 22.5 gm Q15M PRN PO DECREASED GLUCOSE; Start 04/30/17 at 18: 30 Dextrose (D50w Syringe) 25 ml Q15M PRN IV DECREASED GLUCOSE; Start 04/30/17 at 18:30 Dextrose (D50w Syringe) 50 ml Q15M PRN IV DECREASED GLUCOSE; Start 04/30/17 at 18:30 Glucagon (Glucagen) 1 mg Q15M PRN IM DECREASED GLUCOSE; Start 04/30/17 at 18:30 Glucose (Glutose) 15 gm Q15M PRN BUCCAL DECREASED GLUCOSE; Start 04/30/17 at 18 :30 Insulin Glargine (Lantus) 20 unit DAILY@20 SC ; Start 05/01/17 at 20:00 JOANNA LEACH MD May 01, 2017 19:37
[2017-05-01] MEDS ORDERED: INSULIN GLARGINE [LANtus] 3 ML PEN SC SCH (20:00)
[2017-05-01 20:30] VITALS: BP 101/69; RESP 18
[2017-05-02] MEDS: ACCU-CHEK XX SCH (01:16)
[2017-05-02] MEDS: PANTOPRAZOLE (EC) 40 MG TAB PO SCH (05:14)
[2017-05-02] MEDS: INSULIN ASPART [NOVOLOG] 3 ML PEN SC SCH ×7 (07:57→20:42)
[2017-05-02] MEDS: ASPIRIN (EC) 81 MG TAB PO SCH (08:08)
[2017-05-02] MEDS: MULTIVITAMINS THERAPEUTIC TAB PO SCH (08:08)
[2017-05-02] MEDS: LISINOPRIL 5 MG TAB PO SCH (08:08)
[2017-05-02] MEDS: TAMSULOSIN (SR) 0.4 MG CAP PO SCH (08:08)
[2017-05-02] MEDS: CLOPIDOGREL 75 MG TAB PO SCH (08:08)
[2017-05-02 09:39] VITALS: BP 119/89; PULSE 84; RESP 16
--- NOTE | 2017-05-02 18:01 | PN ---
Date/Time of Note Date/Time of Note DATE: 05/02/17 TIME: 18:00 Assessment/Plan VTE Prophylaxis VTE Prophylaxis Intervention: other Lines/Catheters IV Catheter Type (from Nrs): Saline Lock Assessment/Plan Chief Complaint/Hosp Course IMPRESSION: 1. Status post mechanical fall. 2. The patient has cerebrovascular accident, old. 3. Hypertension. 4. Diabetes mellitus. [facility] plan ambulation INC INSULIN Problems: Subjective 24 Hr Interval Summary Cardiovascular: no complaints Gastrointestinal: no complaints Exam/Review of Systems Vital Signs Vitals Vital Signs Date Time Temp Pulse Resp B/P Pulse Ox O2 Delivery O2 Flow Rate FiO2 05/02/17 09:39 98.5 84 16 119/89 Room Air 05/01/17 20:30 96 Intake and Output 05/01/17 05/01/17 05/02/17 15:00 23:00 07:00 Intake Total 1240 ml 300 ml Output Total 800 ml 400 ml Balance 440 ml -100 ml Exam Neck: supple Respiratory: clear to auscultation Cardiovascular: regular rate and rhythm Gastrointestinal: soft Musculoskeletal: nl extremities to inspection Extremities: normal pulses Results Result Diagram: 05/01/17 0500 05/01/17 0500 Results 24 hrs Laboratory Tests Test 05/01/17 20:31 05/02/17 01:53 05/02/17 07:53 05/02/17 11:51 Bedside Glucose 215 244 H 304 H 296 H Test 05/02/17 17:21 Bedside Glucose 289 H Medications Medications Current Medications Acetaminophen (Tylenol Tab) 650 mg Q6H PRN PO PAIN AND OR ELEVATED TEMP Last administered on 04/30/17 20:49; Admin Dose 650 MG; Start 04/30/17 at 18:30 Aspirin (Halfprin) 81 mg DAILY PO Last administered on 05/02/17 08:08; Admin Dose 81 MG; Start 05/01/17 at 09:00 Clopidogrel Bisulfate (plaVIX) 75 mg DAILY PO Last administered on 05/02/17 08 :08; Admin Dose 75 MG; Start 05/01/17 at 09:00 Lisinopril (Zestril) 5 mg DAILY PO Last administered on 05/02/17 08:08; Admin Dose 5 MG; Start 05/01/17 at 09:00 Multivitamins Therapeutic (Theragran) 1 tab DAILY PO Last administered on 08:08; Admin Dose 1 TAB; Start 05/01/17 at 09:00 Tamsulosin HCl (Flomax) 0.4 mg DAILY PO Last administered on 05/02/17 08:08; Admin Dose 0.4 MG; Start 05/01/17 at 09:00 Ondansetron HCl (Zofran Inj) 4 mg Q6H PRN IV NAUSEA AND/OR VOMITING; Start at 18:30 Acetaminophen (Tylenol Tab) 650 mg Q6H PRN PO PAIN LEVEL 1-3 OR FEVER; Start at 18:30 Acetaminophen (Tylenol Supp) 650 mg Q6H PRN [place] PAIN LEVEL 1-3 OR FEVER; Start 04/30/17 at 18:30 Docusate Sodium (Colace) 100 mg Q12H PRN PO CONSTIPATION; Start 04/30/17 at 18: 30 Magnesium Hydroxide (Milk Of Mag) 30 ml DAILY PRN PO CONSTIPATION; Start at 18:30 Pantoprazole (Protonix Tab) 40 mg DAILY@06 PO Last administered on 05/02/17 05 :14; Admin Dose 40 MG; Start 05/01/17 at 06:00 Diagnostic Test (Pha) (Accu-Chek) 1 ea 02 XX ; Start 05/01/17 at 02:00 Miscellaneous Information 1 ea NOTE XX ; Start 04/30/17 at 18:30 Glucose (Glutose) 15 gm Q15M PRN PO DECREASED GLUCOSE; Start 04/30/17 at 18:30 Glucose (Glutose) 22.5 gm Q15M PRN PO DECREASED GLUCOSE; Start 04/30/17 at 18: 30 Dextrose (D50w Syringe) 25 ml Q15M PRN IV DECREASED GLUCOSE; Start 04/30/17 at 18:30 Dextrose (D50w Syringe) 50 ml Q15M PRN IV DECREASED GLUCOSE; Start 04/30/17 at 18:30 Glucagon (Glucagen) 1 mg Q15M PRN IM DECREASED GLUCOSE; Start 04/30/17 at 18:30 Glucose (Glutose) 15 gm Q15M PRN BUCCAL DECREASED GLUCOSE; Start 04/30/17 at 18 :30 Insulin Glargine (Lantus) 20 unit DAILY@20 SC Last administered on 05/01/17 20 :34; Admin Dose 20 UNIT; Start 05/01/17 at 20:00 JOANNA LEACH MD May 02, 2017 18:01
[2017-05-02] MEDS ORDERED: INSULIN GLARGINE [LANtus] 3 ML PEN SC SCH (20:00)
[2017-05-02] MEDS: ACETAMINOPHEN 325 MG TAB PO PRN (20:01)
[2017-05-02 20:18] VITALS: BP 116/69; RESP 16
[2017-05-03] MEDS: ACCU-CHEK XX SCH (02:19)
[2017-05-03] MEDS: PANTOPRAZOLE (EC) 40 MG TAB PO SCH (06:04)
[2017-05-03] MEDS: INSULIN ASPART [NOVOLOG] 3 ML PEN SC SCH ×7 (08:19→21:36)
[2017-05-03] MEDS: TAMSULOSIN (SR) 0.4 MG CAP PO SCH (08:21)
[2017-05-03] MEDS: MULTIVITAMINS THERAPEUTIC TAB PO SCH (08:21)
[2017-05-03] MEDS: CLOPIDOGREL 75 MG TAB PO SCH (08:21)
[2017-05-03] MEDS: ASPIRIN (EC) 81 MG TAB PO SCH (08:21)
[2017-05-03] MEDS: LISINOPRIL 5 MG TAB PO SCH (08:21)
[2017-05-03 08:52] VITALS: BP 120/69; RESP 18
--- NOTE | 2017-05-03 11:04 | PN ---
Date/Time of Note Date/Time of Note DATE: 05/03/17 TIME: 11:02 Assessment/Plan VTE Prophylaxis VTE Prophylaxis Intervention: ambulation Lines/Catheters IV [facility] Saline Lock Urinary Cath still in place: No Assessment/Plan Chief Complaint/Hosp Course 1. Status post mechanical fall. 2. S/p cerebrovascular accident. 3. Hypertension. 4. Diabetes mellitus, uncontrolled Problems: Assessment/Plan 1. Xray right hand 2. DM better control Subjective 24 Hr Interval Summary Musculoskeletal: bone/joint pain, restricted range of motion (right shoulder and hand) Exam/Review of Systems Vital Signs Vitals Vital Signs Date Time Temp Pulse Resp B/P Pulse Ox O2 Delivery O2 Flow Rate FiO2 05/03/17 08:52 98.6 111 18 120/69 93 05/02/17 09:39 Room Air Intake and Output 05/02/17 05/02/17 05/03/17 15:00 23:00 07:00 Intake Total 1200 ml 400 ml Output Total 400 ml Balance 1200 ml 0 ml Exam Constitutional: alert, oriented Psych: no complaints Head: normocephalic ENMT: nl external ears & nose Neck: supple Respiratory: clear to auscultation Cardiovascular: regular rate and rhythm Gastrointestinal: soft Musculoskeletal: range of motion (decreased left shoulder and hand) Neurological: SECURITY CONTROL ASSESSOR II-XII intact Results Result Diagram: 05/01/17 0500 05/01/17 0500 Results 24 hrs Laboratory Tests Test 05/02/17 11:51 05/02/17 17:21 05/02/17 20:36 05/03/17 01:57 Bedside Glucose 296 H 289 H 316 H 284 H Test 05/03/17 08:17 Bedside Glucose 340 H Medications Medications Current Medications Acetaminophen (Tylenol Tab) 650 mg Q6H PRN PO PAIN AND OR ELEVATED TEMP Last administered on 05/02/17 20:01; Admin Dose 650 MG; Start 04/30/17 at 18:30 Aspirin (Halfprin) 81 mg DAILY PO Last administered on 05/03/17 08:21; Admin Dose 81 MG; Start 05/01/17 at 09:00 Clopidogrel Bisulfate (plaVIX) 75 mg DAILY PO Last administered on 05/03/17 08 :21; Admin Dose 75 MG; Start 05/01/17 at 09:00 Lisinopril (Zestril) 5 mg DAILY PO Last administered on 05/03/17 08:21; Admin Dose 5 MG; Start 05/01/17 at 09:00 Multivitamins Therapeutic (Theragran) 1 tab DAILY PO Last administered on 08:21; Admin Dose 1 TAB; Start 05/01/17 at 09:00 Tamsulosin HCl (Flomax) 0.4 mg DAILY PO Last administered on 05/03/17 08:21; Admin Dose 0.4 MG; Start 05/01/17 at 09:00 Ondansetron HCl (Zofran Inj) 4 mg Q6H PRN IV NAUSEA AND/OR VOMITING; Start at 18:30 Acetaminophen (Tylenol Tab) 650 mg Q6H PRN PO PAIN LEVEL 1-3 OR FEVER; Start at 18:30 Acetaminophen (Tylenol Supp) 650 mg Q6H PRN [place] PAIN LEVEL 1-3 OR FEVER; Start 04/30/17 at 18:30 Docusate Sodium (Colace) 100 mg Q12H PRN PO CONSTIPATION; Start 04/30/17 at 18: 30 Magnesium Hydroxide (Milk Of Mag) 30 ml DAILY PRN PO CONSTIPATION; Start at 18:30 Pantoprazole (Protonix Tab) 40 mg DAILY@06 PO Last administered on 05/03/17 06 :04; Admin Dose 40 MG; Start 05/01/17 at 06:00 Diagnostic Test (Pha) (Accu-Chek) 1 ea 02 XX Last administered on 05/03/17 02: 19; Admin Dose 1 EA; Start 05/01/17 at 02:00 Miscellaneous Information 1 ea NOTE XX ; Start 04/30/17 at 18:30 Glucose (Glutose) 15 gm Q15M PRN PO DECREASED GLUCOSE; Start 04/30/17 at 18:30 Glucose (Glutose) 22.5 gm Q15M PRN PO DECREASED GLUCOSE; Start 04/30/17 at 18: 30 Dextrose (D50w Syringe) 25 ml Q15M PRN IV DECREASED GLUCOSE; Start 04/30/17 at 18:30 Dextrose (D50w Syringe) 50 ml Q15M PRN IV DECREASED GLUCOSE; Start 04/30/17 at 18:30 Glucagon (Glucagen) 1 mg Q15M PRN IM DECREASED GLUCOSE; Start 04/30/17 at 18:30 Glucose (Glutose) 15 gm Q15M PRN BUCCAL DECREASED GLUCOSE; Start 04/30/17 at 18 :30 Insulin Glargine (Lantus) 26 unit DAILY@20 SC Last administered on 05/02/17t 20 :40; Admin Dose 26 UNIT; Start 05/02/17 at 20:00 ZO YO May 03, 2017 11:04
[2017-05-03] MEDS: HYDROCODONE/APAP (5/325) TAB PO PRN (12:12)
[2017-05-03] MEDS: INSULIN GLARGINE [LANtus] 3 ML PEN SC SCH ×2 (12:14→21:34)
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
--- NOTE | 2017-05-03 16:27 | RADRPT ---
PROCEDURE: XR Left Hand. CLINICAL INDICATION: Left hand pain. TECHNIQUE: Three views. Frontal lateral and oblique images of the left hand were obtained. COMPARISON: No prior studies are available for comparison. FINDINGS: There is an acute oblique fracture through the mid shaft of the left fifth metacarpal. There is mil d posterior displacement and angulation apex posterior. There is no other fracture and there is no dislocation. There is soft tissue swelling overlying the fracture. Articular surfaces are intact. There is no lytic or blastic lesion. There is no radiopaque foreign body. IMPRESSION: 1. Acute oblique fracture through the mid shaft of the left fifth metacarpal with mild posterior di splacement and angulation apex posterior. RPTAT: QQ .Giuseppe Verde MD, MD Date Time Electronically viewed and signed by .Giuseppe Verde MD, on 05/03/2017 16:27 .R/
[2017-05-03 20:32] VITALS: BP 118/56; RESP 16
[2017-05-04] MEDS: ACCU-CHEK XX SCH (02:00)
[2017-05-04] MEDS: PANTOPRAZOLE (EC) 40 MG TAB PO SCH (05:15)
[2017-05-04 06:04] LABS: ADD SCAN DIFF NO
[2017-05-04 06:21] LABS: BASOPHIL # 0.1 10^3/ul (0.0-0.1); BASOPHILS % 0.8 % (0.0-2.0); EOSINOPHILS # 0.3 10^3/ul (0.0-0.5); EOSINOPHILS % 3.9 % (0.0-7.0); HEMOGLOBIN 13.5 g/dl (14.0-18.0); LYMPHOCYTES # 1.5 10^3/ul (0.8-2.9); LYMPHOCYTES % 19.4 % (15.0-51.0); MEAN CORPUSCULAR HEMOGLOBIN 31.9 pg (29.0-33.0); MEAN CORPUSCULAR HGB CONC 35.5 g/dl (32.0-37.0); MEAN CORPUSCULAR VOLUME 89.8 fl (82.0-101.0); MEAN PLATELET VOLUME 10.7 fl (7.4-10.4); MONOCYTE # 0.6 10^3/ul (0.3-0.9); MONOCYTES % 7.7 % (0.0-11.0); NEUTROPHIL # 5.4 10^3/ul (1.6-7.5); NEUTROPHILS % 67.9 % (39.0-77.0); PLATELET COUNT 255 10^3/UL (140-415); RED BLOOD COUNT 4.23 10^6/ul (4.70-6.10); WHITE BLOOD COUNT 7.9 10^3/ul (4.8-10.8)
[2017-05-04 07:01] LABS: CALCIUM 9.6 mg/dl (8.4-10.2); CREATININE 1.06 mg/dl (0.61-1.24); POTASSIUM 5.2 mmol/L (3.5-5.1)
[2017-05-04 07:50] VITALS: BP 130/90; RESP 20
[2017-05-04] MEDS: MULTIVITAMINS THERAPEUTIC TAB PO SCH (08:19)
[2017-05-04] MEDS: CLOPIDOGREL 75 MG TAB PO SCH (08:19)
[2017-05-04] MEDS: ASPIRIN (EC) 81 MG TAB PO SCH (08:19)
[2017-05-04] MEDS: TAMSULOSIN (SR) 0.4 MG CAP PO SCH (08:19)
[2017-05-04] MEDS: LISINOPRIL 5 MG TAB PO SCH (08:19)
[2017-05-04] MEDS: INSULIN ASPART [NOVOLOG] 3 ML PEN SC SCH ×7 (08:20→20:21)
[2017-05-04] MEDS: INSULIN GLARGINE [LANtus] 3 ML PEN SC SCH ×2 (08:22→20:20)
[2017-05-04] MEDS: HYDROCODONE/APAP (5/325) TAB PO PRN (10:51)
--- NOTE | 2017-05-04 10:56 | PN ---
Date/Time of Note Date/Time of Note DATE: 05/04/17 TIME: 10:52 Assessment/Plan VTE Prophylaxis VTE Prophylaxis Intervention: ambulation Lines/Catheters IV [facility]from [facility] Saline Lock Urinary Cath still in place: No Assessment/Plan Chief Complaint/Hosp Course 1. Status post mechanical fall. 2. S/p cerebrovascular accident with left side weakness. 3. Hypertension, controlled. 4. Diabetes mellitus, uncontrolled 5.V metacarpal bone fracture, Left hand 6. Old fracture left clavicule. 7. Left Shoulder injury Problems: Assessment/Plan 1. Dr Vieyra on the case 2. Better diabetic control 3. Pain control Subjective 24 Hr Interval Summary Respiratory: no complaints Cardiovascular: no complaints Musculoskeletal: bone/joint pain, restricted range of motion (left shoulder) Exam/Review of Systems Vital Signs Vitals Vital Signs Date Time Temp Pulse Resp B/P Pulse Ox O2 Delivery O2 Flow Rate FiO2 05/04/17 07:50 97.7 105 20 130/90 94 05/02/17 09:39 Room Air Intake and Output 05/03/17 05/03/17 05/04/17 15:00 23:00 07:00 Intake Total 820 ml 640 ml Balance 820 ml 640 ml Exam Constitutional: alert, oriented ENMT: nl external ears & nose Respiratory: clear to auscultation Cardiovascular: regular rate and rhythm Genitourinary - Male: nl penis Musculoskeletal: joint tenderness (left sternoclavicular), muscle weakness ( left side), range of motion (left shoulder) Results Result Diagram: 05/04/17 0424 05/04/17 0424 Results 24 hrs Laboratory Tests Test 05/03/17 12:07 05/03/17 12:09 05/03/17 16:57 05/03/17 21:32 Lab Scanned Report REFERENCE LAB Bedside Glucose 329 H 250 H 288 H Test 05/04/17 04:24 05/04/17 08:04 White Blood Count 7.9 Red Blood Count 4.23 L Hemoglobin 13.5 L Hematocrit 38.0 L Mean Corpuscular Volume 89.8 Mean Corpuscular Hemoglobin 31.9 Mean Corpuscular Hemoglobin Concent 35.5 Red Cell Distribution Width 13.0 Platelet Count 255 Mean Platelet Volume 10.7 H Neutrophils % 67.9 Lymphocytes % 19.4 Monocytes % 7.7 Eosinophils % 3.9 Basophils % 0.8 Nucleated Red Blood Cells % 0.0 Neutrophils # 5.4 Lymphocytes # 1.5 Monocytes # 0.6 Eosinophils # 0.3 Basophils # 0.1 Nucleated Red Blood Cells # 0.0 Sodium Level 134 L Potassium Level 5.2 H Chloride Level 98 Carbon Dioxide Level 26 Anion Gap 15 Blood Urea Nitrogen 22 H Creatinine 1.06 Glucose Level 345 H Calcium Level 9.6 Bedside Glucose 356 H Medications Medications Current Medications Acetaminophen (Tylenol Tab) 650 mg Q6H PRN PO PAIN AND OR ELEVATED TEMP Last administered on 05/02/17 20:01; Admin Dose 650 MG; Start 04/30/17 at 18:30 Aspirin (Halfprin) 81 mg DAILY PO Last administered on 05/04/17 08:19; Admin Dose 81 MG; Start 05/01/17 at 09:00 Clopidogrel Bisulfate (plaVIX) 75 mg DAILY PO Last administered on 05/04/17 08 :19; Admin Dose 75 MG; Start 05/01/17 at 09:00 Lisinopril (Zestril) 5 mg DAILY PO Last administered on 05/04/17 08:19; Admin Dose 5 MG; Start 05/01/17 at 09:00 Multivitamins Therapeutic (Theragran) 1 tab DAILY PO Last administered on 08:19; Admin Dose 1 TAB; Start 05/01/17 at 09:00 Tamsulosin HCl (Flomax) 0.4 mg DAILY PO Last administered on 05/04/17 08:19; Admin Dose 0.4 MG; Start 05/01/17 at 09:00 Ondansetron HCl (Zofran Inj) 4 mg Q6H PRN IV NAUSEA AND/OR VOMITING; Start at 18:30 Acetaminophen (Tylenol Tab) 650 mg Q6H PRN PO PAIN LEVEL 1-3 OR FEVER; Start at 18:30 Acetaminophen (Tylenol Supp) 650 mg Q6H PRN [place] PAIN LEVEL 1-3 OR FEVER; Start 04/30/17 at 18:30 Docusate Sodium (Colace) 100 mg Q12H PRN PO CONSTIPATION; Start 04/30/17 at 18: 30 Magnesium Hydroxide (Milk Of Mag) 30 ml DAILY PRN PO CONSTIPATION; Start at 18:30 Pantoprazole (Protonix Tab) 40 mg DAILY@06 PO Last administered on 05/04/17 05 :15; Admin Dose 40 MG; Start 05/01/17 at 06:00 Diagnostic Test (Pha) (Accu-Chek) 1 ea 02 XX Last administered on 05/03/17 02: 19; Admin Dose 1 EA; Start 05/01/17 at 02:00 Miscellaneous Information 1 ea NOTE XX ; Start 04/30/17 at 18:30 Glucose (Glutose) 15 gm Q15M PRN PO DECREASED GLUCOSE; Start 04/30/17 at 18:30 Glucose (Glutose) 22.5 gm Q15M PRN PO DECREASED GLUCOSE; Start 04/30/17 at 18: 30 Dextrose (D50w Syringe) 25 ml Q15M PRN IV DECREASED GLUCOSE; Start 04/30/17 at 18:30 Dextrose (D50w Syringe) 50 ml Q15M PRN IV DECREASED GLUCOSE; Start 04/30/17 at 18:30 Glucagon (Glucagen) 1 mg Q15M PRN IM DECREASED GLUCOSE; Start 04/30/17 at 18:30 Glucose (Glutose) 15 gm Q15M PRN BUCCAL DECREASED GLUCOSE; Start 04/30/17 at 18 :30 Insulin Glargine (Lantus) 26 unit BID SC Last administered on 05/04/17 08:22; Admin Dose 26 UNIT; Start 05/03/17 at 11:30 Acetaminophen/ Hydrocodone Bitart ([place] (5/325)) 1 tab Q6H PRN PO pain Last administered on 05/03/17 12:12; Admin Dose 1 TAB; Start 05/03/17 at 11:30 ZO YO May 04, 2017 10:56
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
[2017-05-04] MEDS: LINAGLIPTIN 5 MG TABLET PO SCH (12:02)
--- NOTE | 2017-05-04 13:50 | RADRPT ---
PROCEDURE: CT of the left shoulder without contrast CLINICAL INDICATION: Evaluate left clavicle and shoulder. TECHNIQUE: CT scan of the left shoulder was performed . No IV contrast was administered. Coronal and sagittal reformatted images were obtained from the axial source images. Images were reviewed on a high-resolution PACS workstation. The calculated radiation dose measures 1003.13 mGy centimeters . The CTDI measures 46.17 mGy. One or more of the following dose reduction techniques were used: - Automated exposure control. - Adjustment of the mA and/or kV according to patient size . - Use of iterative reconstruction technique. COMPARISON: Correlation with radiographs from 05/03/2017 FINDINGS: Osseous structures: There is a healed post fracture deformity of the distal clavicular diaphysis proximal to the AC join t. The AC joint and sternoclavicular joint tube otherwise maintained. Mild marginal productive changes seen at the glenoid and humeral head related to mild glenohumeral j oint arthrosis. There is a small area of cortical irregularity at the posterior inferior margin of the humeral head seen on the sagittal series image 111, related to sequelae of remote trauma. There are subacute fractures of the fourth, fifth and sixth posterior ribs. Soft tissues: The muscle bulk of the rotator cuff is preserved. No evidence for a large glenohumeral joint effusio n. IMPRESSION: 1. Healed post fracture deformity of the distal clavicle. 2. Focal cortical irregularity at the anterior inferior margin of the proximal humerus at the surgi stephan neck most likely sequelae of remote avulsion injury. Further evaluation with MRI may be obtaine d if more acute injury is suspected and for better evaluation of the soft tissues. 3. No evidence for a acute fracture. 4. Mild degenerative changes of the glenohumeral joint. 5. Subacute to chronic appearing posterior left-sided rib fractures. RPTAT: UU .Bogdan Huerta MD, MD Date Time Electronically viewed and signed by .Bogdan Huerta MD, MD on 05/04/2017 13:49 .d/
[2017-05-04 20:58] VITALS: BP 128/70; RESP 17
[2017-05-05] MEDS: ACCU-CHEK XX SCH ×2 (01:50→20:45)
[2017-05-05] MEDS: PANTOPRAZOLE (EC) 40 MG TAB PO SCH (05:10)
[2017-05-05 06:22] LABS: CALCIUM 9.6 mg/dl (8.4-10.2); CREATININE 1.31 mg/dl (0.61-1.24); POTASSIUM 4.8 mmol/L (3.5-5.1)
[2017-05-05 07:50] VITALS: BP 119/73; RESP 18
[2017-05-05] MEDS: INSULIN GLARGINE [LANtus] 3 ML PEN SC SCH ×2 (08:07→20:48)
[2017-05-05] MEDS: INSULIN ASPART [NOVOLOG] 3 ML PEN SC SCH ×7 (08:08→20:45)
[2017-05-05] MEDS: LINAGLIPTIN 5 MG TABLET PO SCH (08:10)
[2017-05-05] MEDS: MULTIVITAMINS THERAPEUTIC TAB PO SCH (08:10)
[2017-05-05] MEDS: LISINOPRIL 5 MG TAB PO SCH (08:10)
[2017-05-05] MEDS: CLOPIDOGREL 75 MG TAB PO SCH (08:10)
[2017-05-05] MEDS: TAMSULOSIN (SR) 0.4 MG CAP PO SCH (08:10)
[2017-05-05] MEDS: ASPIRIN (EC) 81 MG TAB PO SCH (08:19)
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
[2017-05-05 20:31] VITALS: BP 118/69; RESP 18
[2017-05-06] MEDS: PANTOPRAZOLE (EC) 40 MG TAB PO SCH (05:31)
[2017-05-06 08:16] VITALS: BP 130/76; RESP 17
[2017-05-06] MEDS: INSULIN GLARGINE [LANtus] 3 ML PEN SC SCH ×2 (08:16→21:04)
[2017-05-06] MEDS: INSULIN ASPART [NOVOLOG] 3 ML PEN SC SCH ×7 (08:17→21:00)
[2017-05-06] MEDS: MULTIVITAMINS THERAPEUTIC TAB PO SCH (08:22)
[2017-05-06] MEDS: LINAGLIPTIN 5 MG TABLET PO SCH (08:22)
[2017-05-06] MEDS: CLOPIDOGREL 75 MG TAB PO SCH (08:22)
[2017-05-06] MEDS: TAMSULOSIN (SR) 0.4 MG CAP PO SCH (08:22)
[2017-05-06] MEDS: LISINOPRIL 5 MG TAB PO SCH (08:24)
[2017-05-06] MEDS: ASPIRIN (EC) 81 MG TAB PO SCH (08:31)
[2017-05-06 20:34] VITALS: BP 116/65; RESP 16
--- NOTE | 2017-05-06 21:54 | PN ---
Date/Time of Note Date/Time of Note DATE: 05/06/17 TIME: 21:53 Assessment/Plan VTE Prophylaxis VTE Prophylaxis Intervention: other Lines/Catheters [facility] Saline Lock Urinary Cath still in place: No Assessment/Plan Chief Complaint/Hosp Course IMPRESSION: 1. Status post mechanical fall. 2. The patient has cerebrovascular accident, old. 3. Hypertension. 4. Diabetes mellitus.better plan ambulation INC INSULIN po liquid snf Problems: Subjective 24 Hr Interval Summary Cardiovascular: no complaints Gastrointestinal: no complaints Exam/Review of Systems Vital Signs Vitals Vital Signs Date Time Temp Pulse Resp B/P Pulse Ox O2 Delivery O2 Flow Rate FiO2 05/06/17 20:34 98.6 95 16 116/65 96 05/02/17 09:39 Room Air Intake and Output 05/05/17 05/05/17 05/06/17 15:00 23:00 07:00 Intake Total 1120 ml 200 ml Balance 1120 ml 200 ml Exam Neck: supple Respiratory: clear to auscultation Cardiovascular: regular rate and rhythm Gastrointestinal: soft Musculoskeletal: nl extremities to inspection Results Result Diagram: 05/04/17 0424 05/05/17 0425 Results 24 hrs Laboratory Tests Test 05/06/17 07:54 05/06/17 11:58 05/06/17 15:18 05/06/17 17:18 Bedside Glucose 235 H 284 H 229 H 167 Test 05/06/17 20:41 Bedside Glucose 76 Medications Medications Current Medications Acetaminophen (Tylenol Tab) 650 mg Q6H PRN PO PAIN AND OR ELEVATED TEMP Last administered on 05/02/17 20:01; Admin Dose 650 MG; Start 04/30/17 at 18:30 Aspirin (Halfprin) 81 mg DAILY PO Last administered on 05/06/17 08:31; Admin Dose 81 MG; Start 05/01/17 at 09:00 Clopidogrel Bisulfate (plaVIX) 75 mg DAILY PO Last administered on 05/06/17 08 :22; Admin Dose 75 MG; Start 05/01/17 at 09:00 Lisinopril (Zestril) 5 mg DAILY PO Last administered on 05/06/17 08:24; Admin Dose 5 MG; Start 05/01/17 at 09:00 Multivitamins Therapeutic (Theragran) 1 tab DAILY PO Last administered on 08:22; Admin Dose 1 TAB; Start 05/01/17 at 09:00 Tamsulosin HCl (Flomax) 0.4 mg DAILY PO Last administered on 05/06/17 08:22; Admin Dose 0.4 MG; Start 05/01/17 at 09:00 Ondansetron HCl (Zofran Inj) 4 mg Q6H PRN IV NAUSEA AND/OR VOMITING; Start at 18:30 Acetaminophen (Tylenol Tab) 650 mg Q6H PRN PO PAIN LEVEL 1-3 OR FEVER; Start at 18:30 Acetaminophen (Tylenol Supp) 650 mg Q6H PRN [place] PAIN LEVEL 1-3 OR FEVER; Start 04/30/17 at 18:30 Docusate Sodium (Colace) 100 mg Q12H PRN PO CONSTIPATION; Start 04/30/17 at 18: 30 Magnesium Hydroxide (Milk Of Mag) 30 ml DAILY PRN PO CONSTIPATION; Start at 18:30 Pantoprazole (Protonix Tab) 40 mg DAILY@06 PO Last administered on 05/06/17 05 :31; Admin Dose 40 MG; Start 05/01/17 at 06:00 Diagnostic Test (Pha) (Accu-Chek) 1 ea 02 XX Last administered on 05/05/17 01: 50; Admin Dose 1 EA; Start 05/01/17 at 02:00 Miscellaneous Information 1 ea NOTE XX ; Start 04/30/17 at 18:30 Glucose (Glutose) 15 gm Q15M PRN PO DECREASED GLUCOSE; Start 04/30/17 at 18:30 Glucose (Glutose) 22.5 gm Q15M PRN PO DECREASED GLUCOSE; Start 04/30/17 at 18: 30 Dextrose (D50w Syringe) 25 ml Q15M PRN IV DECREASED GLUCOSE; Start 04/30/17 at 18:30 Dextrose (D50w Syringe) 50 ml Q15M PRN IV DECREASED GLUCOSE; Start 04/30/17 at 18:30 Glucagon (Glucagen) 1 mg Q15M PRN IM DECREASED GLUCOSE; Start 04/30/17 at 18:30 Glucose (Glutose) 15 gm Q15M PRN BUCCAL DECREASED GLUCOSE; Start 04/30/17 at 18 :30 Acetaminophen/ Hydrocodone Bitart ([place] (5/325)) 1 tab Q6H PRN PO pain Last administered on 05/04/17 10:51; Admin Dose 1 TAB; Start 05/03/17 at 11:30 Linagliptin (Tradjenta) 5 mg DAILY PO Last administered on 05/06/17 08:22; Admin Dose 5 MG; Start 05/04/17 at 11:00 Insulin Glargine (Lantus) 35 unit BID@08,20 SC Last administered on 05/06/17 21:04; Admin Dose 35 UNIT; Start 05/05/17 at 20:00 JOANNA LEACH MD May 06, 2017 21:54
[2017-05-07] MEDS: ACCU-CHEK XX SCH (02:00)
[2017-05-07] MEDS: PANTOPRAZOLE (EC) 40 MG TAB PO SCH (06:25)
[2017-05-07 06:38] LABS: ADD SCAN DIFF NO
[2017-05-07 06:45] LABS: BASOPHIL # 0.1 10^3/ul (0.0-0.1); BASOPHILS % 0.9 % (0.0-2.0); EOSINOPHILS # 0.3 10^3/ul (0.0-0.5); EOSINOPHILS % 3.7 % (0.0-7.0); HEMATOCRIT 38.2 % (42.0-52.0); HEMOGLOBIN 13.4 g/dl (14.0-18.0); LYMPHOCYTES # 1.7 10^3/ul (0.8-2.9); LYMPHOCYTES % 20.2 % (15.0-51.0); MEAN CORPUSCULAR HEMOGLOBIN 31.8 pg (29.0-33.0); MEAN CORPUSCULAR HGB CONC 35.1 g/dl (32.0-37.0); MEAN CORPUSCULAR VOLUME 90.7 fl (82.0-101.0); MEAN PLATELET VOLUME 10.7 fl (7.4-10.4); MONOCYTE # 0.7 10^3/ul (0.3-0.9); MONOCYTES % 8.4 % (0.0-11.0); NEUTROPHIL # 5.7 10^3/ul (1.6-7.5); NEUTROPHILS % 66.5 % (39.0-77.0); PLATELET COUNT 254 10^3/UL (140-415); RED BLOOD COUNT 4.21 10^6/ul (4.70-6.10); RED CELL DISTRIBUTION WIDTH 13.2 % (11.5-14.5); WHITE BLOOD COUNT 8.6 10^3/ul (4.8-10.8)
[2017-05-07 07:35] LABS: ALBUMIN 4.3 g/dl (3.3-4.9); ALBUMIN/GLOBULIN RATIO 1.65; BILIRUBIN,INDIRECT 0.5 mg/dl (0-1.1); BILIRUBIN,TOTAL 0.5 mg/dl (0.2-1.3); CALCIUM 9.1 mg/dl (8.4-10.2); CREATININE 1.24 mg/dl (0.61-1.24); POTASSIUM 4.6 mmol/L (3.5-5.1); TOTAL PROTEIN 6.9 g/dl (6.1-8.1)
[2017-05-07] MEDS: MULTIVITAMINS THERAPEUTIC TAB PO SCH (08:14)
[2017-05-07] MEDS: ASPIRIN (EC) 81 MG TAB PO SCH (08:14)
[2017-05-07] MEDS: CLOPIDOGREL 75 MG TAB PO SCH (08:15)
[2017-05-07] MEDS: LISINOPRIL 5 MG TAB PO SCH (08:15)
[2017-05-07] MEDS: TAMSULOSIN (SR) 0.4 MG CAP PO SCH (08:15)
[2017-05-07] MEDS: LINAGLIPTIN 5 MG TABLET PO SCH (08:15)
[2017-05-07] MEDS: INSULIN ASPART [NOVOLOG] 3 ML PEN SC SCH ×6 (08:18→18:11)
[2017-05-07 08:53] VITALS: BP 118/74; RESP 18
[2017-05-07] MEDS: INSULIN GLARGINE [LANtus] 3 ML PEN SC SCH (10:15)
[2017-05-07] MEDS: HYDROCODONE/APAP (5/325) TAB PO PRN (12:11)
--- NOTE | 2017-05-07 17:44 | PDOCDIS ---
Discharge Instructions CONDITION Patient Condition: Stable HOME CARE INSTRUCTIONS: Special Diet: low fat and low chol and carb control diet ACTIVITY: Activity Restrictions: Slowly Increase Activity FOLLOW UP/APPOINTMENTS Appointments f/u dr romero1 wk see pcp 1 wk JOANNA LEACH MD May 07, 2017 17:44
--- NOTE | 2017-05-10 17:30 | QN ---
Documentation Comment [id number] JOANNA LEACH MD May 10, 2017 17:30
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
== END 2017-05-07 20:25 | DRG 563 ==
LOC: E/R 08:07 → PP2 11:38
PROVIDERS: ADMIT Internal Medicine Nephrology; ATTEND Internal Medicine Nephrology
PROC: 4A033R1 Measurement of Arterial Saturation, Peripheral, Percutaneous Approach (ICD-10-PCS; principal; 2017-04-30)
DX: S62.242A Displaced fracture of shaft of first metacarpal bone, left hand, initial encounter for closed fracture (principal); E11.65 Type 2 diabetes mellitus with hyperglycemia; I10 Essential (primary) hypertension; I69.354 Hemiplegia and hemiparesis following cerebral infarction affecting left non-dominant side; E78.5 Hyperlipidemia, unspecified; S49.92XA Unspecified injury of left shoulder and upper arm, initial encounter; Z87.81 Personal history of (healed) traumatic fracture; Z79.4 Long term (current) use of insulin; Z79.82 Long term (current) use of aspirin; Z79.02 Long term (current) use of antithrombotics/antiplatelets; V18.0XXA Pedal cycle driver injured in noncollision transport accident in nontraffic accident, initial encounter; Y93.55 Activity, bike riding; Y92.488 Other paved roadways as the place of occurrence of the external cause
CPT/HCPCS: 36415; 70450; 71010; 72125; 73030; 73200; 80048; 80053; 80306; 80307; 81001; 82140; 82803; 82962; 83036; 84484; 85025; 85610; 85730; 87081; 93005; J1815; J7030; L3807

== ENCOUNTER 2017-08-06 10:34 | Inpatient (IN) | payer OTHER ==
[~2017-08-06] VITALS: Ht 170.2 cm; Wt 82.5 kg
[~2017-08-06 10:34] MED LIST changes: +ASPI-664 PO; -ASPI325T4 PO; -ASPI81TA3 PO; -Accu-Chek XX; +CLOP75TA27 PO; -LANT3I SC; -NOVO3I SC
--- NOTE | 2017-08-06 12:39 | ERA ---
ER Documentation Chief Complaint Date/Time DATE: 08/06/17 TIME: 12:38 Chief Complaint HYPERGLYCEMIA HPI The patient is a 61-year-old male, presenting with a blood glucose, dry mouth for the last couple of days. He ran out of his insulin and diabetic tablets for his diabetes for 3 days, denies fever, chills, neck pain, chest pain, dyspnea, abdominal pain, vomiting, dysuria, diarrhea. He complains of bilateral feet pain for the last 2 days with cramping. He denies any trauma, denies smoking, drinks socially, denies illicit drugs Past medical history: Hypertension, diabetes mellitus, dyslipidemia, BPH, history of CVA Past surgical history: Appendectomy ROS All systems reviewed and are negative except as per history of present illness. Medications Home Meds Active Scripts Pantoprazole* (Pantoprazole*) 40 Mg Tablet.dr, 40 MG PO DAILY@06 for 30 Days Prov:ZO YO 04/19/17 Acetaminophen (MAPAP) 325 Mg Tablet, 650 MG PO Q6H Y for PAIN AND OR ELEVATED TEMP for 10 Days, TAB Prov:ZO YO 04/19/17 Reported Medications Insulin Isophan/Regular (Humulin 70/30) 100 Units/Ml Susp, 0-15 UNIT SC AC MEALS , EA 04/30/17 Clopidogrel Bisulfate (Clopidogrel) 75 Mg Tablet, 75 MG PO DAILY, #30 TAB 04/30/17 Aspirin* (Aspirin* EC) 81 Mg Tablet.dr, 81 MG PO DAILY, TAB 04/30/17 Multivitamins* (Theragran*) 1 Tab Tab, 1 TAB PO DAILY, TAB 04/18/17 Tamsulosin Hcl* (Tamsulosin Hcl*) 0.4 Mg Cap.er.24h, 0.4 MG PO DAILY, CAP 04/18/17 Lisinopril* (Lisinopril*) 5 Mg Tablet, 5 MG PO DAILY, #30 TAB 04/18/17 Simvastatin (Simvastatin) 10 Mg Tablet, 10 MG PO DAILY, #30 TAB 04/18/17 Allergies Allergies: Coded Allergies: No Known Allergy (Unverified , 04/30/17) PMhx/Soc History of Surgery: No Anesthesia Reaction: No Hx Respiratory Disorders: Yes Hx Cardiac Disorders: Yes (hyerpertension) Hx Psychiatric Problems: No Hx Miscellaneous Medical Probl: No Hx Alcohol Use: No Hx Substance Use: No Hx Tobacco Use: No Physical Exam Vitals Vital Signs Date Time Temp Pulse Resp B/P Pulse Ox O2 Delivery O2 Flow Rate FiO2 08/06/17 14:53 84 16 149/84 100 Room Air 08/06/17 10:43 97.9 103 16 151/85 98 Physical Exam Const: No acute distress. Head: Atraumatic. Eyes: Normal Conjunctiva. ENT: Normal External Ears, Nose and Mouth. Neck: Full range of motion. No meningismus. Resp: Clear to auscultation bilaterally. Cardio: Regular rate and rhythm. Abd: Soft, non distended, normal bowel sounds, non tender. Skin: No petechiae or rashes. Back: No midline or flank tenderness. Ext: No cyanosis, or edema. Neur: Awake and alert. No focal deficit Psych: Normal Mood and Affect. Result Diagram: 08/06/17 1310 08/06/17 1310 Results 24 hrs Laboratory Tests Test 08/06/17 11:07 08/06/17 12:52 08/06/17 13:10 08/06/17 15:16 Bedside Glucose > 595mg/dL 557mg/dL Blood Gas Specimen Source Blood arterial Arterial Blood Date Drawn 08/06/2017 1:14:15 PM Arterial Blood pH (Temp corrected) 7.438 Arterial Blood pCO2 (Temp correct) 30.9mmhg Arterial Blood pO2 (Temp corrected) 80.2mmHG Arterial Blood HCO3 20.4mmol/L Arterial Blood Base Excess -2.6mmol/L Arterial Blood Oxygen Saturation 96.1mmHG Nain Test ACCEPTAB Arterial Blood Gas Puncture Site Right Radial Arterial Blood Carboxyhemoglobin 0.4% Arterial Blood Methemoglobin 0.1% Blood Gas A-a O2 Differential 75.8mmHg Oxyhemoglobin Percent 95.6% Total Hemoglobin 14.7g/dl Blood Gas Temperature 37.0C Blood Gas Modality ROOM AIR FiO2 27.0% Blood Gas Notified Whom ARELY Blood Gas Notified Time 08/06/2017 1:16:41 PM White Blood Count 11.010^3/ul Red Blood Count 4.6610^6/ul Hemoglobin 14.7g/dl Hematocrit 40.3% Mean Corpuscular Volume 86.5fl Mean Corpuscular Hemoglobin 31.5pg Mean Corpuscular Hemoglobin Concent 36.5g/dl Red Cell Distribution Width 12.7% Platelet Count 36154^3/UL Mean Platelet Volume 11.2fl Neutrophils % 81.9% Lymphocytes % 11.6% Monocytes % 5.0% Eosinophils % 0.5% Basophils % 0.6% Nucleated Red Blood Cells % 0.0/100WBC Neutrophils # 9.010^3/ul Lymphocytes # 1.310^3/ul Monocytes # 0.610^3/ul Eosinophils # 0.110^3/ul Basophils # 0.110^3/ul Nucleated Red Blood Cells # 0.010^3/ul Prothrombin Time 12.1Sec Prothrombin Time Ratio 0.9 INR International Normalized Ratio 0.90 Activated Partial Thromboplast Time 24.0Sec Urine Color STRAW Urine Clarity CLEAR Urine pH 6.0 Urine Specific [place] 1.020 Urine Ketones TRACEmg/dL Urine Nitrite NEGATIVEmg/dL Urine Bilirubin NEGATIVEmg/dL Urine Urobilinogen NEGATIVEmg/dL Urine Leukocyte Esterase NEGATIVELeu/ul Urine Hemoglobin NEGATIVEmg/dL Urine Glucose 3+mg/dL Urine Total Protein NEGATIVEmg/dl Sodium Level 125mmol/L Potassium Level 4.8mmol/L Chloride Level 87mmol/L Carbon Dioxide Level 25mmol/L Anion Gap 18 Blood Urea Nitrogen 29mg/dl Creatinine 1.17mg/dl Glucose Level 743mg/dl Lactic Acid Level 2.1mmol/L Calcium Level 9.8mg/dl Phosphorus Level 4.4mg/dl Magnesium Level 2.3mg/dl Total Bilirubin 0.4mg/dl Direct Bilirubin 0.00mg/dl Indirect Bilirubin 0.4mg/dl Aspartate Amino Transf (AST/SGOT) 48IU/L Alanine Aminotransferase (ALT/SGPT) 61IU/L Alkaline Phosphatase 177IU/L Total Protein 8.1g/dl Albumin 4.4g/dl Globulin 3.70g/dl Albumin/Globulin Ratio 1.18 Lipase 232U/L Test 08/06/17 15:30 08/06/17 15:49 08/06/17 17:41 Lactic Acid Level 2.0mmol/L Bedside Glucose 480mg/dL 438mg/dL Current Medications Medications (Trade) Dose Ordered Sig/Grady Route PRN Reason Start Time Stop Time Status Last Admin Dose Admin Sodium Chloride (NS) 2,450 ml @ 2,450 mls/hr BOLUS X1 ONCE IV 08/06/17 13:00 08/06/17 13:59 DC 08/06/17 13:21 Insulin Human Lispro (Humalog) 18 unit ONCE STAT SC 08/06/17 15:35 08/06/17 15:36 Cancel Miscellaneous Information 1 ea NOTE XX 08/06/17 16:00 Cancel Glucose (Glutose) 15 gm Q15M PRN PO DECREASED GLUCOSE 08/06/17 16:00 Cancel Glucose (Glutose) 22.5 gm Q15M PRN PO DECREASED GLUCOSE 08/06/17 16:00 Cancel Dextrose (D50w Syringe) 25 ml Q15M PRN IV DECREASED GLUCOSE 08/06/17 16:00 Cancel Dextrose (D50w Syringe) 50 ml Q15M PRN IV DECREASED GLUCOSE 08/06/17 16:00 Cancel Glucagon (Glucagen) 1 mg Q15M PRN IM DECREASED GLUCOSE 08/06/17 16:00 Cancel Glucose (Glutose) 15 gm Q15M PRN BUCCAL DECREASED GLUCOSE 08/06/17 16:00 Cancel Insulin Human Lispro (Humalog) 24 unit ONCE STAT SC 08/06/17 15:42 08/06/17 15:43 DC Insulin Human Lispro (Humalog) 16 unit ONCE STAT SC 08/06/17 16:16 08/06/17 16:18 DC 08/06/17 16:23 Procedures/[place] [id number] Radiology Main Line: [phone] DIAGNOSTIC IMAGING REPORT Patient: TAI SPENCER : 1955 Age: 61 Sex: M MR #: [id number] DOS: 08/06/17 1252 Ordering MD: EDWIGE BAILON MD Location: E/R Room/Bed: PROCEDURE: Chest Radiograph. CLINICAL INDICATION: Hyperglycemia TECHNIQUE: Single frontal chest radiograph. COMPARISON: Chest radiograph 04/30/2017 FINDINGS: The cardiomediastinal silhouette is within normal limits. There is mild elevation of the right hemidiaphragm with associated right basilar atelectasis or scarring. No infiltrate or effusion is seen. The bones are intact. IMPRESSION: 1. Elevation of the right hemidiaphragm with associated right basilar atelectasis/scarring. RPTAT: KK .Vlad Gamez MD, Date Time Electronically viewed and signed by .Vlad Gamez MD, on 2016 13:23 .B/ CC: EDWIGE BAILON MD MEDICAL MAKING DECISION: The patient is a 61-year-old male, presenting with hyperosmolar hyperglycemic syndrome. He was treated with normal saline 30 mL/ kg IV,Humalog 16 units subcutaneously with good response. The differential diagnoses considered include but are not limited to HHS, DKA, UTI, PNA Departure Diagnosis: Primary Impression: Hyperglycemic hyperosmolar nonketotic coma Additional Impression: Hyponatremia Condition: Stable Comments I discussed the findings with the patient. I discussed the patient with his physician who was made aware of the lab, the treatment, the patient condition. The patient is admitted to [facility] at 5 pm EDWIGE BAILON MD Aug 06, 2017 12:39
[2017-08-06] MEDS ORDERED: SOD CHLORIDE 0.9% 2,450 ML IV ONE (13:00)
[2017-08-06 13:16] LABS: AADO2 Arterial 75.8 mmHg (7.0-24.0); Allen Test ACCEPTAB; Arterial Base Excess -2.6 mmol/L (-3.0-3); Arterial COHb 0.4 % (0.0-3.0); Arterial Fraction of Oxyhgb 95.6 % (93.0-99.0); Arterial HCO3 20.4 mmol/L (22.0-26.0); Arterial MetHb 0.1 % (0.0-1.5); Arterial Total Hemglobin 14.7 g/dl (12.0-18.0); MODE ROOM AIR
--- NOTE | 2017-08-06 13:23 | RADRPT ---
PROCEDURE: Chest Radiograph. CLINICAL INDICATION: Hyperglycemia TECHNIQUE: Single frontal chest radiograph. COMPARISON: Chest radiograph 04/30/2017 FINDINGS: The cardiomediastinal silhouette is within normal limits. There is mild elevation of the right lee diaphragm with associated right basilar atelectasis or scarring. No infiltrate or effusion is seen. The bones are intact. IMPRESSION: 1. Elevation of the right hemidiaphragm with associated right basilar atelectasis/scarring. RPTAT: KK .Vlad Gamez MD, MD Date Time Electronically viewed and signed by .Vlad Gamez MD, MD on 08/06/2017 13:23 .B/
[2017-08-06 13:32] LABS: BASOPHIL # 0.1 10^3/ul (0.0-0.1); BASOPHILS % 0.6 % (0.0-2.0); EOSINOPHILS # 0.1 10^3/ul (0.0-0.5); EOSINOPHILS % 0.5 % (0.0-7.0); HEMATOCRIT 40.3 % (42.0-52.0); HEMOGLOBIN 14.7 g/dl (14.0-18.0); LYMPHOCYTES # 1.3 10^3/ul (0.8-2.9); LYMPHOCYTES % 11.6 % (15.0-51.0); MEAN CORPUSCULAR HEMOGLOBIN 31.5 pg (29.0-33.0); MEAN CORPUSCULAR HGB CONC 36.5 g/dl (32.0-37.0); MEAN CORPUSCULAR VOLUME 86.5 fl (82.0-101.0); MEAN PLATELET VOLUME 11.2 fl (7.4-10.4); MONOCYTE # 0.6 10^3/ul (0.3-0.9); NEUTROPHILS % 81.9 % (39.0-77.0); PLATELET COUNT 229 10^3/UL (140-415); RED BLOOD COUNT 4.66 10^6/ul (4.70-6.10); RED CELL DISTRIBUTION WIDTH 12.7 % (11.5-14.5)
[2017-08-06 13:39] LABS: ADD UMIC NO; UR ASCORBIC ACID NEGATIVE (NEGATIVE); UR BILIRUBIN (Dip) NEGATIVE (NEGATIVE); UR BLOOD (Dip) NEGATIVE (NEGATIVE); UR CLARITY CLEAR (CLEAR); UR COLOR STRAW (YELLOW); UR GLUCOSE (Dip) 3+ mg/dL (NEGATIVE); UR KETONES (Dip) TRACE mg/dL (NEGATIVE); UR LEUKOCYTE ESTERASE (Dip) NEGATIVE Leu/ul (NEGATIVE); UR NITRITE (Dip) NEGATIVE (NEGATIVE); UR TOTAL PROTEIN (Dip) NEGATIVE (NEGATIVE); UR UROBILINOGEN (Dip) NEGATIVE (NEGATIVE)
[2017-08-06 13:52] LABS: INR 0.9; PROTIME 12.1 Sec (12.2-14.2); PT RATIO 0.9
[2017-08-06 15:33] LABS: ALBUMIN 4.4 g/dl (3.3-4.9); ALBUMIN/GLOBULIN RATIO 1.18; CALCIUM 9.8 mg/dl (8.4-10.2); CREATININE 1.17 mg/dl (0.61-1.24); MAGNESIUM 2.3 mg/dl (1.7-2.5); PHOSPHORUS 4.4 mg/dl (2.5-4.9); POTASSIUM 4.8 mmol/L (3.5-5.1); TOTAL PROTEIN 8.1 g/dl (6.1-8.1)
[2017-08-06] MEDS ORDERED: INSULIN LISPRO 100 UNIT/ML VIAL SC STA ×3 (15:35→16:16)
[2017-08-06 15:55] LABS: BILIRUBIN,INDIRECT 0.4 mg/dl (0-1.1); BILIRUBIN,TOTAL 0.4 mg/dl (0.2-1.3)
[2017-08-06] MEDS ORDERED: GLUCOSE GEL 15 GRAM TUBE PO PRN ×4 (16:00→20:00)
[2017-08-06] MEDS ORDERED: DEXTROSE 50% 50 ML SYRINGE IV PRN ×4 (16:00→20:00)
[2017-08-06] MEDS ORDERED: GLUCAGON 1 MG INJ IM PRN ×2 (16:00→20:00)
[2017-08-06] MEDS ORDERED: GLUCOSE GEL 15 GRAM TUBE BUCCAL PRN ×2 (16:00→20:00)
[2017-08-06 17:00] VITALS: PULSE 85
[2017-08-06] MEDS ORDERED: ACETAMINOPHEN 325 MG TAB PO PRN (19:00)
[2017-08-06] MEDS ORDERED: HYDROCODONE/APAP (5/325) TAB PO PRN (19:00)
[2017-08-06] MEDS ORDERED: ONDANSETRON 4 MG INJ IV PRN (19:00)
[2017-08-06] MEDS ORDERED: NACL 0.9% 3 ML SYG IV SCH (19:00)
[2017-08-06] MEDS ORDERED: DOCUSATE SODIUM 100 MG CAP PO PRN (19:00)
[2017-08-06] MEDS ORDERED: ZOLPIDEM 5 MG TAB PO PRN (19:00)
[2017-08-06] MEDS ORDERED: morphine 2 MG INJ IV PRN (19:00)
--- NOTE | 2017-08-06 19:58 | CONS ---
Date/Time of Note Date/Time of Note DATE: 08/06/17 TIME: 19:33 Assessment/Plan Assessment/Plan Problems: (1) Diabetes mellitus type 2, uncontrolled Status: Chronic Comment: While patient has many findings suggestive of Hyperosmolar Hyperglycemic State, patient does not have altered mental status. Although still suboptimal, his blood sugars have responded nicely to the insulin and fluid management that he has been given thus far. I will place him on a weight based basal bolus regimen to begin and continue to adjust as needed. Qualifiers: Qualified Code: E11.65 - Uncontrolled type 2 diabetes mellitus with hyperglycemia, with long-term current use of insulin Additional Assessment/Plan Tahnk you for asking me to assist in this patient's care. Consultation Date/Type/Reason Admit Date/Time Aug 06, 2017 at 17:10 Date of Consultation: Aug 06, 2017 Type of Consultation: Endocrine Reason for Consultation Hyperglycemia Referring Provider: LEVY HADLEY MD Hx of Present Illness 61 year old man with a 20 year history of Diabetes Mellitus Type 2 presents to the DEM at [facility] with extremely dry mouth, excessive thirst and urination, hyperesthesia of his feet and states he has 2 blisters on his feet that have ruptured. Patient, who has been on insulin injections BID for BG control, states he ran out of insulin about 4 days ago. He states he was unable to get a refill on his medications due to the fact that he switched doctors and his next appointment wasn't until next week. I have been asked to assist in the management of his blood sugars. Constitutional: no complaints Eyes: other (blurry vision) ENT: no complaints Respiratory: no complaints Cardiovascular: no complaints Gastrointestinal: no complaints Genitourinary: other (polyuria) Musculoskeletal: no complaints Skin: no complaints Neurologic: other (hyperesthesia of both feet) Endocrine: polydypsia, polyuria Lymphatic: no complaints Psychological: depression, other Immunologic: no complaints Past Medical History Medical History: diabetes, other (BPH) Past Surgical History Past Surgical Hx: appendectomy Social History Alcohol Use: sober (quit 20 years ago) Smoking Status: Never smoker Drug Use: none Exam/Review of Systems Vital Signs Vitals Vital Signs Date Time Temp Pulse Resp B/P Pulse Ox O2 Delivery O2 Flow Rate FiO2 08/06/17 17:00 85 16 131/72 100 Room Air 08/06/17 10:43 97.9 Exam Constitutional: alert, oriented Psych: other (labile alternating between normal affect and crying) Head: normocephalic Eyes: EOMI, PERRL, fundi, disc (not visualized ( undilated)), nl conjunctiva ENMT: mucosa pink and moist Neck: bruits (none), jvd (none), non-tender, supple, thyromegaly (none) Respiratory: clear to auscultation, normal air movement Cardiovascular: regular rate and rhythm Gastrointestinal: non-tender, soft, surgical scars (lower right quadrant) Musculoskeletal: muscle tone (normal), range of motion (normal) Extremities: normal pulses, other (thickened discolored toenails, plantar aspect of bilateral feet with clean based ruptured blister) Neurological: nl mental status, nl speech, nl strength, other (normal 10 gram filament) Skin: nl turgor Lymph: nl lymph nodes Results POC and labs reviewed Result Diagram: 08/06/17 1310 08/06/17 1310 Results 24 hrs Laboratory Tests Test 08/06/17 11:07 08/06/17 12:52 08/06/17 13:10 08/06/17 15:16 Bedside Glucose > 595 *H 557 *H Blood Gas Specimen Source Blood arterial Arterial Blood Date Drawn 08/06/2017 1:14:15 PM Arterial Blood pH (Temp corrected) 7.438 Arterial Blood pCO2 (Temp correct) 30.9 L Arterial Blood pO2 (Temp corrected) 80.2 Arterial Blood HCO3 20.4 L Arterial Blood Base Excess -2.6 Arterial Blood Oxygen Saturation 96.1 Nain Test ACCEPTAB Arterial Blood Gas Puncture Site Right Radial Arterial Blood Carboxyhemoglobin 0.4 Arterial Blood Methemoglobin 0.1 Blood Gas A-a O2 Differential 75.8 H Oxyhemoglobin Percent 95.6 Total Hemoglobin 14.7 Blood Gas Temperature 37.0 Blood Gas Modality ROOM AIR FiO2 27.0 Blood Gas Notified Whom ARELY Blood Gas Notified Time 08/06/2017 1:16:41 PM White Blood Count 11.0 #H Red Blood Count 4.66 L Hemoglobin 14.7 Hematocrit 40.3 L Mean Corpuscular Volume 86.5 Mean Corpuscular Hemoglobin 31.5 Mean Corpuscular Hemoglobin Concent 36.5 Red Cell Distribution Width 12.7 Platelet Count 229 Mean Platelet Volume 11.2 H Neutrophils % 81.9 H Lymphocytes % 11.6 L Monocytes % 5.0 Eosinophils % 0.5 Basophils % 0.6 Nucleated Red Blood Cells % 0.0 Neutrophils # 9.0 H Lymphocytes # 1.3 Monocytes # 0.6 Eosinophils # 0.1 Basophils # 0.1 Nucleated Red Blood Cells # 0.0 Prothrombin Time 12.1 L Prothrombin Time Ratio 0.9 INR International Normalized Ratio 0.90 Activated Partial Thromboplast Time 24.0 L Urine Color STRAW Urine Clarity CLEAR Urine pH 6.0 Urine Specific [place] 1.020 Urine Ketones TRACE A Urine Nitrite NEGATIVE Urine Bilirubin NEGATIVE Urine Urobilinogen NEGATIVE Urine Leukocyte Esterase NEGATIVE Urine Hemoglobin NEGATIVE Urine Glucose 3+ H Urine Total Protein NEGATIVE Sodium Level 125 L Potassium Level 4.8 Chloride Level 87 L Carbon Dioxide Level 25 Anion Gap 18 H Blood Urea Nitrogen 29 H Creatinine 1.17 Glucose Level 743 *H Lactic Acid Level 2.1 H Calcium Level 9.8 Phosphorus Level 4.4 Magnesium Level 2.3 Total Bilirubin 0.4 Direct Bilirubin 0.00 Indirect Bilirubin 0.4 Aspartate Amino Transf (AST/SGOT) 48 H Alanine Aminotransferase (ALT/SGPT) 61 Alkaline Phosphatase 177 H Total Protein 8.1 Albumin 4.4 Globulin 3.70 H Albumin/Globulin Ratio 1.18 Lipase 232 Test 08/06/17 15:30 08/06/17 15:49 08/06/17 17:25 08/06/17 17:41 Lactic Acid Level 2.0 1.2 Bedside Glucose 480 *H 438 *H Medications Medications Current Medications Sodium Chloride 500 ml 500 ml ONCE IV ; Start 08/06/17 at 22:00; Stop 08/06/17 at 22:01 Sodium Chloride (NS) 1,000 ml @ 75 mls/hr [id number] IV ; Start 08/06/17 at 23:00 Ondansetron HCl (Zofran Inj) 4 mg Q6H PRN IV NAUSEA AND/OR VOMITING; Start at 19:00 Acetaminophen (Tylenol Tab) 650 mg Q6H PRN PO PAIN LEVEL 1-3 OR FEVER; Start at 19:00 Acetaminophen/ Hydrocodone Bitart ([place] (5/325)) 1 tab Q6H PRN PO MODERATE PAIN LEVEL 4-6; Start 08/06/17 at 19:00 Morphine Sulfate (morphine) 2 mg Q4H PRN IV SEVERE PAIN LEVEL 7-10; Start 08/06 at 19:00 Docusate Sodium (Colace) 100 mg Q12H PRN PO CONSTIPATION; Start 08/06/17 at 19: 00 Zolpidem Tartrate (Ambien) 5 mg QHS PRN PO SLEEP; Start 08/06/17 at 19:00 Famotidine (Pepcid) 20 mg Q12 PO ; Start 08/06/17 at 21:00 Enoxaparin Sodium (Lovenox) 40 mg DAILY SC ; Start 08/07/17 at 09:00 MIRIAM MERRITT MD Aug 06, 2017 19:43
[2017-08-06 20:04] VITALS: Ht 170.2 cm; Wt 82.5 kg
[2017-08-06] MEDS: FAMOTIDINE 20 MG TAB PO SCH (20:34)
[2017-08-06 20:59] VITALS: BP 122/62; RESP 18
[2017-08-06] MEDS ORDERED: INSULIN DETEMIR [LEVEMIR] 3ML CART SC SCH (21:00)
[2017-08-06] MEDS ORDERED: SODIUM CHLORIDE 0.9% 1L BAG IV SCH (22:00)
[2017-08-06] MEDS: SOD CHLORIDE 0.9% 1,000 ML IV SCH (23:14)
[2017-08-06] MEDS: INSULIN ASPART [NOVOLOG] 3 ML PEN SC SCH (23:14)
[2017-08-07] MEDS ORDERED: ACCU-CHEK XX SCH (02:00)
--- NOTE | 2017-08-07 02:16 | HP ---
DATE OF ADMISSION: 08/06/2017 REASON FOR ADMISSION: High blood sugars and generalized weakness. HISTORY OF PRESENT ILLNESS: This is a 61-year-old male with a past medical history of diabetes for 17 years, history of BPH, hypertension, hypercholesteremia, and history of CVA in the past. Presented to the emergency department after having generalized weakness for the past few days. According to the patient,he is in the middle of changing his PCP, but he has still not gotten a new PCP. He has not checked his blood sugars for the last 20 days, and he has not taken his insulin for last 4 days as he ran out. He was feeling generalized weakness and he came to the emergency department. The patient usually takes Lantus 40 units at night and NPH 30 units in the morning. According to the patient, he has been eating snacks for last 2 to 3 days. Denies any abdominal pain, nausea, vomiting, diarrhea. On arrival to the ED, the patient had a blood glucose, which was 700, sodium was 125, bicarb was 25, and patient was given normal saline 2.4 L and was also given insulin lispro 16 units and was admitted for further management. PAST MEDICAL HISTORY: 1. Diabetes. 2. Hypertension. 3. Peripheral neuropathy. 4. History of prior CVD. 5. Hyperlipidemia. ALLERGIES: NEGATIVE. MEDICATIONS: Taking at home, ibuprofen, Flomax 0.4, aspirin 81, some allergy medicine, insulin Lantus 49 NPH in the morning. SOCIAL HISTORY: Denies any history of smoking, alcohol, any drug use. Lives in [place]. FAMILY HISTORY: Significant for diabetes in the family. REVIEW OF SYSTEMS: Patient denies any abdominal pain, nausea, vomiting, diarrhea. Denies any headache, any blurry vision. Denies any chest pain, any shortness of breath, any cough, any fevers and chills. Denies any urinating more at night. Denies any hematemesis, any melena, or any bright red blood per rectum. Denies any focal neurological deficits. PHYSICAL EXAMINATION: GENERAL: The patient is awake, alert, oriented. VITAL SIGNS: Blood pressure 131/72, heart rate 85, respirations 16, saturating 100 percent on room air. GENERAL: The patient is awake, alert, oriented x4. Does not appear to be in any acute distress. HEENT: Pupils equal, round, reactive to light. NECK: Supple. No JVD. HEART: Regular rate and rhythm. LUNGS: Clear to auscultate bilaterally. ABDOMEN: Soft, nontender, nondistended. Positive normoactive bowel sounds. EXTREMITIES: No clubbing, cyanosis, or edema. NEUROLOGIC: Nonfocal. DIAGNOSTIC DATA: BMP shows initial glucose of 743, sodium of 125, potassium of 4.8, bicarb of 25, BUN of 29, and creatinine of 1.17. White count 11, hemoglobin 14.7, platelet count 229. UA shows 3 plus glucose and trace ketones. Blood gas shows a pH of 7.43, pCO2 of 30, pO2 of 20. Chest x-ray does not show any acute infiltrate. ASSESSMENT: This is a 61-year-old presenting with 1. Elevated blood sugars, with 743, with likely hyperosmolar hyperglycemic state, bicarb is normal. Patient has very little ketones and pH 7.4 likely secondary to noncompliance. 2. Mild leukocytosis. 3. Hyponatremia likely secondary to pseudo due to the elevated blood sugars. 4. Mild acute kidney injury secondary to dehydration. 5. Hypertension. 6. Hyperlipidemia. 7. History of old cerebrovascular accident. PLAN: At this period of time, patient will be admitted to med- surg. Will check fingersticks. Endocrine consultation has been requested. The patient will be started on insulin for diabetes management. The patient will also contact patient educator. and ADA diet and check the Hgb A1c. The rest of the treatment will depend on the patient's hospitalization course. Dictated By: MD KRISTEN Salamanca/noman/letitia /Document#: [id number]
[2017-08-07 03:13] VITALS: BP 119/75; RESP 18
[2017-08-07] MEDS: SOD CHLORIDE 0.9% 1,000 ML IV SCH (05:27)
[2017-08-07 06:49] LABS: BASOPHILS % 0.4 % (0.0-2.0); EOSINOPHILS # 0.2 10^3/ul (0.0-0.5); EOSINOPHILS % 2.8 % (0.0-7.0); HEMATOCRIT 34.8 % (42.0-52.0); HEMOGLOBIN 12.5 g/dl (14.0-18.0); LYMPHOCYTES # 1.5 10^3/ul (0.8-2.9); LYMPHOCYTES % 21.7 % (15.0-51.0); MEAN CORPUSCULAR HEMOGLOBIN 31.3 pg (29.0-33.0); MEAN CORPUSCULAR HGB CONC 35.9 g/dl (32.0-37.0); MEAN CORPUSCULAR VOLUME 87.2 fl (82.0-101.0); MEAN PLATELET VOLUME 11.1 fl (7.4-10.4); MONOCYTE # 0.5 10^3/ul (0.3-0.9); MONOCYTES % 7.4 % (0.0-11.0); NEUTROPHIL # 4.6 10^3/ul (1.6-7.5); NEUTROPHILS % 67.4 % (39.0-77.0); PLATELET COUNT 183 10^3/UL (140-415); RED BLOOD COUNT 3.99 10^6/ul (4.70-6.10); RED CELL DISTRIBUTION WIDTH 12.7 % (11.5-14.5); WHITE BLOOD COUNT 6.8 10^3/ul (4.8-10.8)
[2017-08-07 07:29] LABS: CALCIUM 8.5 mg/dl (8.4-10.2); CHOL/HDL RATIO 6.5 RATIO; CREATININE 0.76 mg/dl (0.61-1.24); PHOSPHORUS 3.1 mg/dl (2.5-4.9)
[2017-08-07 08:23] VITALS: BP 116/74; RESP 16
[2017-08-07] MEDS: FAMOTIDINE 20 MG TAB PO SCH ×2 (08:28→20:40)
[2017-08-07] MEDS: INSULIN ASPART [NOVOLOG] 3 ML PEN SC SCH ×8 (08:29→20:44)
[2017-08-07] MEDS: ENOXAPARIN 40 MG/0.4 ML SYG SC SCH (08:31)
[2017-08-07] MEDS ORDERED: LINAGLIPTIN 5 MG TABLET PO SCH (09:00)
[2017-08-07] MEDS: ACCU-CHEK XX SCH ×3 (10:00→20:37)
--- NOTE | 2017-08-07 10:30 | PN ---
Date/Time of Note Date/Time of Note DATE: 08/07/17 TIME: 10:30 Assessment/Plan VTE Prophylaxis VTE Prophylaxis Intervention: ambulation Lines/Catheters IV [facility] Type (from [facility] Peripheral IV Urinary Cath still in place: No Assessment/Plan Chief Complaint/Hosp Course 61 y/o with # Uncontrolled DM likely due to non compliance # Mild leukocytosis. # Hyponatremia likely secondary to pseudo due to the elevated blood sugars. # Mild acute kidney injury secondary to dehydration. # Hypertension. # Hyperlipidemia. # History of old cerebrovascular accident Recs - Increased Levimir to 54 qhs and Novlog to 14 tid - dm teaching - Glucometer - d/c fluids - Likely dc home tmw Problems: Subjective 24 Hr Interval Summary Free Text/Dictation Sugars still around 250 this am Exam/Review of Systems Vital Signs Vitals Vital Signs Date Time Temp Pulse Resp B/P Pulse Ox O2 Delivery O2 Flow Rate FiO2 08/07/17 08:23 98.0 80 16 116/74 96 08/06/17 17:00 Room Air Intake and Output 08/06/17 08/06/17 08/07/17 15:00 23:00 07:00 Intake Total 1720 ml Output Total 2000 ml Balance -2000 ml 1720 ml Exam GENERAL: The patient is awake, alert, oriented. GENERAL: The patient is awake, alert, oriented x4. Does not appear to be in any acute distress. HEENT: Pupils equal, round, reactive to light. NECK: Supple. No JVD. HEART: Regular rate and rhythm. LUNGS: Clear to auscultate bilaterally. ABDOMEN: Soft, nontender, nondistended. Positive normoactive bowel sounds. EXTREMITIES: No clubbing, cyanosis, or edema. NEUROLOGIC: Nonfocal. Results Result Diagram: 08/07/17 0539 08/07/17 0539 Results 24 hrs Laboratory Tests Test 08/06/17 11:07 08/06/17 12:52 08/06/17 13:10 08/06/17 15:16 Bedside Glucose > 595 *H 557 *H Blood Gas Specimen Source Blood arterial Arterial Blood Date Drawn 08/06/2017 1:14:15 PM Arterial Blood pH (Temp corrected) 7.438 Arterial Blood pCO2 (Temp correct) 30.9 L Arterial Blood pO2 (Temp corrected) 80.2 Arterial Blood HCO3 20.4 L Arterial Blood Base Excess -2.6 Arterial Blood Oxygen Saturation 96.1 Nain Test ACCEPTAB Arterial Blood Gas Puncture Site Right Radial Arterial Blood Carboxyhemoglobin 0.4 Arterial Blood Methemoglobin 0.1 Blood Gas A-a O2 Differential 75.8 H Oxyhemoglobin Percent 95.6 Total Hemoglobin 14.7 Blood Gas Temperature 37.0 Blood Gas Modality ROOM AIR FiO2 27.0 Blood Gas Notified Whom JMD Blood Gas Notified Time 08/06/2017 1:16:41 PM White Blood Count 11.0 #H Red Blood Count 4.66 L Hemoglobin 14.7 Hematocrit 40.3 L Mean Corpuscular Volume 86.5 Mean Corpuscular Hemoglobin 31.5 Mean Corpuscular Hemoglobin Concent 36.5 Red Cell Distribution Width 12.7 Platelet Count 229 Mean Platelet Volume 11.2 H Neutrophils % 81.9 H Lymphocytes % 11.6 L Monocytes % 5.0 Eosinophils % 0.5 Basophils % 0.6 Nucleated Red Blood Cells % 0.0 Neutrophils # 9.0 H Lymphocytes # 1.3 Monocytes # 0.6 Eosinophils # 0.1 Basophils # 0.1 Nucleated Red Blood Cells # 0.0 Prothrombin Time 12.1 L Prothrombin Time Ratio 0.9 INR International Normalized Ratio 0.90 Activated Partial Thromboplast Time 24.0 L Urine Color STRAW Urine Clarity CLEAR Urine pH 6.0 Urine Specific Aroda 1.020 Urine Ketones TRACE A Urine Nitrite NEGATIVE Urine Bilirubin NEGATIVE Urine Urobilinogen NEGATIVE Urine Leukocyte Esterase NEGATIVE Urine Hemoglobin NEGATIVE Urine Glucose 3+ H Urine Total Protein NEGATIVE Sodium Level 125 L Potassium Level 4.8 Chloride Level 87 L Carbon Dioxide Level 25 Anion Gap 18 H Blood Urea Nitrogen 29 H Creatinine 1.17 Glucose Level 743 *H Lactic Acid Level 2.1 H Calcium Level 9.8 Phosphorus Level 4.4 Magnesium Level 2.3 Total Bilirubin 0.4 Direct Bilirubin 0.00 Indirect Bilirubin 0.4 Aspartate Amino Transf (AST/SGOT) 48 H Alanine Aminotransferase (ALT/SGPT) 61 Alkaline Phosphatase 177 H Total Protein 8.1 Albumin 4.4 Globulin 3.70 H Albumin/Globulin Ratio 1.18 Lipase 232 Test 08/06/17 15:30 08/06/17 15:49 08/06/17 17:25 08/06/17 17:41 Lactic Acid Level 2.0 1.2 Bedside Glucose 480 *H 438 *H Test 08/06/17 20:18 08/06/17 21:16 08/06/17 23:11 08/07/17 02:34 Bedside Glucose 303 H 323 H 285 H 265 H Test 08/07/17 05:39 08/07/17 08:27 White Blood Count 6.8 # Red Blood Count 3.99 L Hemoglobin 12.5 L Hematocrit 34.8 L Mean Corpuscular Volume 87.2 Mean Corpuscular Hemoglobin 31.3 Mean Corpuscular Hemoglobin Concent 35.9 Red Cell Distribution Width 12.7 Platelet Count 183 # Mean Platelet Volume 11.1 H Neutrophils % 67.4 Lymphocytes % 21.7 Monocytes % 7.4 Eosinophils % 2.8 Basophils % 0.4 Nucleated Red Blood Cells % 0.0 Neutrophils # 4.6 Lymphocytes # 1.5 Monocytes # 0.5 Eosinophils # 0.2 Basophils # 0.0 Nucleated Red Blood Cells # 0.0 Sodium Level 135 Potassium Level 4.0 Chloride Level 104 # Carbon Dioxide Level 26 Anion Gap 9 # Blood Urea Nitrogen 16 # Creatinine 0.76 Glucose Level 243 #H Hemoglobin A1c 11.9 H Calcium Level 8.5 Phosphorus Level 3.1 Magnesium Level 2.0 Triglycerides Level 330 H Cholesterol Level 118 LDL Cholesterol, Calculated 34 HDL Cholesterol 18 L Cholesterol/HDL Ratio 6.5 Bedside Glucose 247 H Medications Medications Current Medications Sodium Chloride (NS) 1,000 ml @ 75 mls/hr [id number] IV Last administered on 08/07t 05:27; Admin Dose 75 MLS/HR; Start 08/06/17 at 23:00 Ondansetron HCl (Zofran Inj) 4 mg Q6H PRN IV NAUSEA AND/OR VOMITING; Start at 19:00 Acetaminophen (Tylenol Tab) 650 mg Q6H PRN PO PAIN LEVEL 1-3 OR FEVER; Start at 19:00 Acetaminophen/ Hydrocodone Bitart ([place] (5/325)) 1 tab Q6H PRN PO MODERATE PAIN LEVEL 4-6; Start 08/06/17 at 19:00 Morphine Sulfate (morphine) 2 mg Q4H PRN IV SEVERE PAIN LEVEL 7-10; Start 08/06 at 19:00 Docusate Sodium (Colace) 100 mg Q12H PRN PO CONSTIPATION; Start 08/06/17 at 19: 00 Zolpidem Tartrate (Ambien) 5 mg QHS PRN PO SLEEP; Start 08/06/17 at 19:00 Famotidine (Pepcid) 20 mg Q12 PO Last administered on 08/07/17 08:28; Admin Dose 20 MG; Start 08/06/17 at 21:00 Enoxaparin Sodium (Lovenox) 40 mg DAILY SC Last administered on 08/07/17 08:31 ; Admin Dose 40 MG; Start 08/07/17 at 09:00 Insulin Detemir (Levemir) 48 unit Q24H SC Last administered on 08/06/17 21:19 ; Admin Dose 48 UNIT; Start 08/06/17 at 21:00 Linagliptin (Tradjenta) 5 mg DAILY PO Last administered on 08/07/17 08:28; Admin Dose 5 MG; Start 08/07/17 at 09:00 Miscellaneous Information 1 ea NOTE XX ; Start 08/06/17 at 20:00 Glucose (Glutose) 15 gm Q15M PRN PO DECREASED GLUCOSE; Start 08/06/17 at 20:00 Glucose (Glutose) 22.5 gm Q15M PRN PO DECREASED GLUCOSE; Start 08/06/17 at 20: 00 Dextrose (D50w Syringe) 25 ml Q15M PRN IV DECREASED GLUCOSE; Start 08/06/17 at 20:00 Dextrose (D50w Syringe) 50 ml Q15M PRN IV DECREASED GLUCOSE; Start 08/06/17 at 20:00 Glucagon (Glucagen) 1 mg Q15M PRN IM DECREASED GLUCOSE; Start 08/06/17 at 20:00 Glucose (Glutose) 15 gm Q15M PRN BUCCAL DECREASED GLUCOSE; Start 08/06/17 at 20 :00 LEVY HADLEY MD Aug 07, 2017 10:30
--- NOTE | 2017-08-07 13:45 | CONS ---
Date/Time of Note Date/Time of Note DATE: 08/07/17 TIME: 13:41 Assessment/Plan Assessment/Plan Chief Complaint/Hosp Course 61 year old man with a 20 year history of Diabetes Mellitus Type 2 presents to the DEM at [facility] with extremely dry mouth, excessive thirst and urination, hyperesthesia of his feet and states he has 2 blisters on his feet that have ruptured. Patient, who has been on insulin injections BID for BG control, states he ran out of insulin about 4 days ago. He states he was unable to get a refill on his medications due to the fact that he switched doctors and his next appointment wasn't until next week. I have been asked to assist in the management of his blood sugars. Problems: (1) Diabetes mellitus type 2, uncontrolled Status: Chronic Comment: Better glycemic control, but still requiring more insulin. Will increase both basal and bolus doses. Qualifiers: Diabetes mellitus complication status: with hyperglycemia Diabetes mellitus fdc insulin use: with assorter use Qualified Code: E11.65 - Uncontrolled type 2 diabetes mellitus with hyperglycemia, with long-term current use of insulin Additional Assessment/Plan Increase Levemir to 54 units HS and Novolog to 14 units AC meals plus correction sliding scale. Cont'd Hospitalization Reason: Likely to be clinically stable for discharge tomorrow. Consultation Date/Type/Reason Admit Date/Time Aug 06, 2017 at 17:10 Initial Consult Date 08/06/17 Type of Consultation: Endocrine Referring Provider: LEVY HADLEY MD 24 HR Interval Summary Free Text/Dictation Patient states feeling better. Pleased that blood glucose levels have improved. States at home maintains blood glucose around 170 mg/dl Exam/Review of Systems Vital Signs Vitals Vital Signs Date Time Temp Pulse Resp B/P Pulse Ox O2 Delivery O2 Flow Rate FiO2 08/07/17 08:23 98.0 80 16 116/74 96 08/06/17 17:00 Room Air Intake and Output 08/06/17 08/06/17 08/07/17 15:00 23:00 07:00 Intake Total 1720 ml Output Total 2000 ml Balance -2000 ml 1720 ml Exam Constitutional: alert, oriented Neck: supple Respiratory: clear to auscultation Cardiovascular: regular rate and rhythm Gastrointestinal: soft Extremities: normal pulses Results POC glucose reviewed Result Diagram: 08/07/17 0539 08/07/17 0539 Results 24 hrs Laboratory Tests Test 08/06/17 15:16 08/06/17 15:30 08/06/17 15:49 08/06/17 17:25 Bedside Glucose 557 *H 480 *H Lactic Acid Level 2.0 1.2 Test 08/06/17 17:41 08/06/17 20:18 08/06/17 21:16 08/06/17 23:11 Bedside Glucose 438 *H 303 H 323 H 285 H Test 08/07/17 02:34 08/07/17 05:39 08/07/17 08:27 08/07/17 10:41 Bedside Glucose 265 H 247 H 299 H White Blood Count 6.8 # Red Blood Count 3.99 L Hemoglobin 12.5 L Hematocrit 34.8 L Mean Corpuscular Volume 87.2 Mean Corpuscular Hemoglobin 31.3 Mean Corpuscular Hemoglobin Concent 35.9 Red Cell Distribution Width 12.7 Platelet Count 183 # Mean Platelet Volume 11.1 H Neutrophils % 67.4 Lymphocytes % 21.7 Monocytes % 7.4 Eosinophils % 2.8 Basophils % 0.4 Nucleated Red Blood Cells % 0.0 Neutrophils # 4.6 Lymphocytes # 1.5 Monocytes # 0.5 Eosinophils # 0.2 Basophils # 0.0 Nucleated Red Blood Cells # 0.0 Sodium Level 135 Potassium Level 4.0 Chloride Level 104 # Carbon Dioxide Level 26 Anion Gap 9 # Blood Urea Nitrogen 16 # Creatinine 0.76 Glucose Level 243 #H Hemoglobin A1c 11.9 H Calcium Level 8.5 Phosphorus Level 3.1 Magnesium Level 2.0 Triglycerides Level 330 H Cholesterol Level 118 LDL Cholesterol, Calculated 34 HDL Cholesterol 18 L Cholesterol/HDL Ratio 6.5 Test 08/07/17 12:11 Bedside Glucose 281 H Medications Medications Current Medications Ondansetron HCl (Zofran Inj) 4 mg Q6H PRN IV NAUSEA AND/OR VOMITING; Start at 19:00 Acetaminophen (Tylenol Tab) 650 mg Q6H PRN PO PAIN LEVEL 1-3 OR FEVER; Start at 19:00 Acetaminophen/ Hydrocodone Bitart ([place] (5/325)) 1 tab Q6H PRN PO MODERATE PAIN LEVEL 4-6; Start 08/06/17 at 19:00 Morphine Sulfate (morphine) 2 mg Q4H PRN IV SEVERE PAIN LEVEL 7-10; Start 08/06 at 19:00 Docusate Sodium (Colace) 100 mg Q12H PRN PO CONSTIPATION; Start 08/06/17 at 19: 00 Zolpidem Tartrate (Ambien) 5 mg QHS PRN PO SLEEP; Start 08/06/17 at 19:00 Famotidine (Pepcid) 20 mg Q12 PO Last administered on 08/07/17 08:28; Admin Dose 20 MG; Start 08/06/17 at 21:00 Enoxaparin Sodium (Lovenox) 40 mg DAILY SC Last administered on 08/07/17 08:31 ; Admin Dose 40 MG; Start 08/07/17 at 09:00 Miscellaneous Information 1 ea NOTE XX ; Start 08/06/17 at 20:00 Glucose (Glutose) 15 gm Q15M PRN PO DECREASED GLUCOSE; Start 08/06/17 at 20:00 Glucose (Glutose) 22.5 gm Q15M PRN PO DECREASED GLUCOSE; Start 08/06/17 at 20: 00 Dextrose (D50w Syringe) 25 ml Q15M PRN IV DECREASED GLUCOSE; Start 08/06/17 at 20:00 Dextrose (D50w Syringe) 50 ml Q15M PRN IV DECREASED GLUCOSE; Start 08/06/17 at 20:00 Glucagon (Glucagen) 1 mg Q15M PRN IM DECREASED GLUCOSE; Start 08/06/17 at 20:00 Glucose (Glutose) 15 gm Q15M PRN BUCCAL DECREASED GLUCOSE; Start 08/06/17 at 20 :00 Linagliptin (Tradjenta) 5 mg DAILY@08 PO ; Start 08/08/17 at 08:00 Insulin Detemir (Levemir) 54 unit Q24H SC ; Start 08/07/17 at 21:00; Status MIRIAM AHUMADA MD Aug 07, 2017 13:45
[2017-08-07 14:00] VITALS: BP 116/74; RESP 16
[2017-08-07 19:51] VITALS: BP 132/68; RESP 18
[2017-08-07] MEDS ORDERED: INSULIN DETEMIR [LEVEMIR] 3ML CART SC SCH (21:00)
[2017-08-08] MEDS ORDERED: ACCU-CHEK XX SCH (02:00)
[2017-08-08 02:39] VITALS: BP 143/77; RESP 18
[2017-08-08 08:00] VITALS: BP 153/80; RESP 18
[2017-08-08] MEDS: LINAGLIPTIN 5 MG TABLET PO SCH (08:05)
[2017-08-08] MEDS: INSULIN ASPART [NOVOLOG] 3 ML PEN SC SCH ×7 (08:07→20:27)
[2017-08-08] MEDS: ENOXAPARIN 40 MG/0.4 ML SYG SC SCH (08:08)
[2017-08-08] MEDS: FAMOTIDINE 20 MG TAB PO SCH ×2 (08:09→20:36)
--- NOTE | 2017-08-08 09:29 | PN ---
Date/Time of Note Date/Time of Note DATE: 08/08/17 TIME: 09:29 Assessment/Plan VTE Prophylaxis VTE Prophylaxis Intervention: ambulation Lines/Catheters IV Catheter Type (from Nrs): [place] Urinary Cath still in place: No Assessment/Plan Chief Complaint/Hosp Course 61 y/o with # Uncontrolled DM likely due to non compliance / HONK # Mild leukocytosis. # Hyponatremia likely secondary to pseudo due to the elevated blood sugars. # Mild acute kidney injury secondary to dehydration. # Hypertension. # Hyperlipidemia. # History of old cerebrovascular accident Recs - Decreased Levimir to 48 qhs and increased Novlog to 24 tid per Endo - dm teaching - Glucometer - Likely dc home tmw Problems: Subjective 24 Hr Interval Summary Free Text/Dictation Sugars>250 Exam/Review of Systems Vital Signs Vitals Vital Signs Date Time Temp Pulse Resp B/P Pulse Ox O2 Delivery O2 Flow Rate FiO2 08/08/17 08:00 98.4 79 18 153/80 95 08/06/17 17:00 Room Air Intake and Output 08/07/17 08/07/17 08/08/17 15:00 23:00 07:00 Intake Total 450 ml 1080 ml 600 ml Balance 450 ml 1080 ml 600 ml Exam Exam GENERAL: The patient is awake, alert, oriented. GENERAL: The patient is awake, alert, oriented x4. Does not appear to be in any acute distress. HEENT: Pupils equal, round, reactive to light. NECK: Supple. No JVD. HEART: Regular rate and rhythm. LUNGS: Clear to auscultate bilaterally. ABDOMEN: Soft, nontender, nondistended. Positive normoactive bowel sounds. EXTREMITIES: No clubbing, cyanosis, or edema. NEUROLOGIC: Nonfocal. Results Result Diagram: 08/07/17 0539 08/07/17 0539 Results 24 hrs Laboratory Tests Test 08/07/17 10:41 08/07/17 12:11 08/07/17 14:32 08/07/17 17:29 Bedside Glucose 299 H 281 H 288 H 263 H Test 08/07/17 20:36 08/08/17 02:12 08/08/17 08:05 Bedside Glucose 222 H 258 H 276 H Medications Medications Current Medications Ondansetron HCl (Zofran Inj) 4 mg Q6H PRN IV NAUSEA AND/OR VOMITING; Start at 19:00 Acetaminophen (Tylenol Tab) 650 mg Q6H PRN PO PAIN LEVEL 1-3 OR FEVER; Start at 19:00 Acetaminophen/ Hydrocodone Bitart ([place] (5/325)) 1 tab Q6H PRN PO MODERATE PAIN LEVEL 4-6; Start 08/06/17 at 19:00 Morphine Sulfate (morphine) 2 mg Q4H PRN IV SEVERE PAIN LEVEL 7-10; Start 08/06 at 19:00 Docusate Sodium (Colace) 100 mg Q12H PRN PO CONSTIPATION; Start 08/06/17 at 19: 00 Zolpidem Tartrate (Ambien) 5 mg QHS PRN PO SLEEP; Start 08/06/17 at 19:00 Famotidine (Pepcid) 20 mg Q12 PO Last administered on 08/08/17 08:09; Admin Dose 20 MG; Start 08/06/17 at 21:00 Enoxaparin Sodium (Lovenox) 40 mg DAILY SC Last administered on 08/08/17 08:08 ; Admin Dose 40 MG; Start 08/07/17 at 09:00 Miscellaneous Information 1 ea NOTE XX ; Start 08/06/17 at 20:00 Glucose (Glutose) 15 gm Q15M PRN PO DECREASED GLUCOSE; Start 08/06/17 at 20:00 Glucose (Glutose) 22.5 gm Q15M PRN PO DECREASED GLUCOSE; Start 08/06/17 at 20: 00 Dextrose (D50w Syringe) 25 ml Q15M PRN IV DECREASED GLUCOSE; Start 08/06/17 at 20:00 Dextrose (D50w Syringe) 50 ml Q15M PRN IV DECREASED GLUCOSE; Start 08/06/17 at 20:00 Glucagon (Glucagen) 1 mg Q15M PRN IM DECREASED GLUCOSE; Start 08/06/17 at 20:00 Glucose (Glutose) 15 gm Q15M PRN BUCCAL DECREASED GLUCOSE; Start 08/06/17 at 20 :00 Linagliptin (Tradjenta) 5 mg DAILY@08 PO Last administered on 08/08/17 08:05; Admin Dose 5 MG; Start 08/08/17 at 08:00 Insulin Detemir (Levemir) 48 unit Q24H SC ; Start 08/08/17 at 21:00 LEVY HADLEY MD Aug 08, 2017 09:29
[2017-08-08] MEDS: ACCU-CHEK XX SCH ×3 (10:00→20:05)
[2017-08-08] MEDS: metFORMIN (XR) 500 MG TAB PO SCH ×2 (10:50→18:52)
--- NOTE | 2017-08-08 11:32 | CONS ---
Date/Time of Note Date/Time of Note DATE: 08/08/17 TIME: 11:27 Assessment/Plan Assessment/Plan Problems: (1) Hyperglycemic hyperosmolar nonketotic coma Status: Resolved (2) Benign positional vertigo Status: Acute Comment: Try meclizine 25 mg. (3) Type 2 diabetes mellitus with foot ulcer Status: Acute Comment: Patient already receiving wound care. Call podiatry (4) Diabetes mellitus type 2, uncontrolled Status: Chronic Comment: Add Metformin 500 mg twice a day. Increase NovoLog to 24 units from 14 units before each meal. Reduce Levemir back to 48 units subcu nightly. Qualifiers: Diabetes mellitus complication status: with hyperglycemia Diabetes mellitus director long term care insulin use: with fdc use Qualified Code: E11.65 - Uncontrolled type 2 diabetes mellitus with hyperglycemia, with long-term current use of insulin Consultation Date/Type/Reason Admit Date/Time Aug 06, 2017 at 17:10 Initial Consult Date 08/06/17 Type of Consultation: Endocrine Reason for Consultation Hyperosmolar nonketotic diabetic coma, type 2 diabetes mellitus [id number] Referring Provider: LEVY HADLEY MD 24 HR Interval Summary Constitutional: improved, no complaints Detailed Summary Respiratory: no complaints Cardiovascular: no complaints Gastrointestinal: no complaints Genitourinary: no complaints Musculoskeletal: no complaints Skin: skin lesions (Blisters and pre-ulcerative calluses on the feet) Neurologic: dizziness Exam/Review of Systems Vital Signs Vitals VS - Last 72 Hours, by Label Date Time Temp Pulse Resp B/P Pulse Ox O2 Delivery O2 Flow Rate FiO2 08/08/17 08:00 98.4 79 18 153/80 95 08/08/17 02:39 98.0 80 18 143/77 96 08/07/17 19:51 99.0 89 18 132/68 97 08/07/17 14:00 98.3 91 16 116/74 96 08/07/17 08:23 98.0 80 16 116/74 96 08/07/17 03:13 98.0 81 18 119/75 97 08/06/17 20:59 98.5 89 18 122/62 93 08/06/17 17:00 85 16 131/72 100 Room Air 08/06/17 16:30 93 16 114/69 100 Room Air 08/06/17 14:53 84 16 149/84 100 Room Air 08/06/17 10:43 97.9 103 16 151/85 98 Vital Signs Date Time Temp Pulse Resp B/P Pulse Ox O2 Delivery O2 Flow Rate FiO2 08/08/17 08:00 98.4 79 18 153/80 95 08/06/17 17:00 Room Air Intake and Output 08/07/17 08/07/17 08/08/17 15:00 23:00 07:00 Intake Total 450 ml 1080 ml 600 ml Balance 450 ml 1080 ml 600 ml Exam Constitutional: alert, oriented, well developed Psych: nl mood/affect, no complaints Respiratory: clear to auscultation, normal air movement Cardiovascular: nl pulses, regular rate and rhythm, No edema, No murmurs/extra sounds, No rub Gastrointestinal: bowel sounds, nl liver, spleen, non-tender, soft, No mass, No rebound or guarding Musculoskeletal: No nl extremities to inspection (Positive calluses on feet) Extremities: No clubbing, No cyanosis, No edema Neurological: ACADEMIC SPECIALIST II-XII intact, nl mental status, nl speech, nl strength Additional Comments Bedside Glucose - 72 Hours Test 08/06/17 11:07 08/06/17 15:16 08/06/17 15:49 08/06/17 17:41 Bedside Glucose > 595mg/dL (70-220) *H 557mg/dL (70-220) *H 480mg/dL (70-220) *H 438mg/dL (70-220) *H Test 08/06/17 20:18 08/06/17 21:16 08/06/17 23:11 08/07/17 02:34 Bedside Glucose 303mg/dL (70-220) H 323mg/dL (70-220) H 285mg/dL (70-220) H 265mg/dL (70-220) H Test 08/07/17 08:27 08/07/17 10:41 08/07/17 12:11 08/07/17 14:32 Bedside Glucose 247mg/dL (70-220) H 299mg/dL (70-220) H 281mg/dL (70-220) H 288mg/dL (70-220) H Test 08/07/17 17:29 08/07/17 20:36 08/08/17 02:12 08/08/17 08:05 Bedside Glucose 263mg/dL (70-220) H 222mg/dL (70-220) H 258mg/dL (70-220) H 276mg/dL (70-220) H Test 08/08/17 10:22 Bedside Glucose 395mg/dL (70-220) H Results Result Diagram: 08/07/17 0539 08/07/17 0539 Results 24 hrs Laboratory Tests Test 08/07/17 12:11 08/07/17 14:32 08/07/17 17:29 08/07/17 20:36 Bedside Glucose 281 H 288 H 263 H 222 H Test 08/08/17 02:12 08/08/17 08:05 08/08/17 10:22 Bedside Glucose 258 H 276 H 395 H Medications Medications Current Medications Ondansetron HCl (Zofran Inj) 4 mg Q6H PRN IV NAUSEA AND/OR VOMITING; Start at 19:00 Acetaminophen (Tylenol Tab) 650 mg Q6H PRN PO PAIN LEVEL 1-3 OR FEVER; Start at 19:00 Acetaminophen/ Hydrocodone Bitart ([place] (5/325)) 1 tab Q6H PRN PO MODERATE PAIN LEVEL 4-6; Start 08/06/17 at 19:00 Morphine Sulfate (morphine) 2 mg Q4H PRN IV SEVERE PAIN LEVEL 7-10; Start 08/06 at 19:00 Docusate Sodium (Colace) 100 mg Q12H PRN PO CONSTIPATION; Start 08/06/17 at 19: 00 Zolpidem Tartrate (Ambien) 5 mg QHS PRN PO SLEEP; Start 08/06/17 at 19:00 Famotidine (Pepcid) 20 mg Q12 PO Last administered on 08/08/17 08:09; Admin Dose 20 MG; Start 08/06/17 at 21:00 Enoxaparin Sodium (Lovenox) 40 mg DAILY SC Last administered on 08/08/17 08:08 ; Admin Dose 40 MG; Start 08/07/17 at 09:00 Miscellaneous Information 1 ea NOTE XX ; Start 08/06/17 at 20:00 Glucose (Glutose) 15 gm Q15M PRN PO DECREASED GLUCOSE; Start 08/06/17 at 20:00 Glucose (Glutose) 22.5 gm Q15M PRN PO DECREASED GLUCOSE; Start 08/06/17 at 20: 00 Dextrose (D50w Syringe) 25 ml Q15M PRN IV DECREASED GLUCOSE; Start 08/06/17 at 20:00 Dextrose (D50w Syringe) 50 ml Q15M PRN IV DECREASED GLUCOSE; Start 08/06/17 at 20:00 Glucagon (Glucagen) 1 mg Q15M PRN IM DECREASED GLUCOSE; Start 08/06/17 at 20:00 Glucose (Glutose) 15 gm Q15M PRN BUCCAL DECREASED GLUCOSE; Start 08/06/17 at 20 :00 Linagliptin (Tradjenta) 5 mg DAILY@08 PO Last administered on 08/08/17t 08:05; Admin Dose 5 MG; Start 08/08/17 at 08:00 Insulin Detemir (Levemir) 48 unit Q24H SC ; Start 08/08/17 at 21:00 EDWIGE JONES MD Aug 08, 2017 11:32
[2017-08-08] MEDS: MECLIZINE 25 MG TAB PO SCH ×2 (12:26→20:36)
[2017-08-08] MEDS: SOD CHLORIDE 0.9% 1,000 ML IV SCH ×2 (12:35→20:36)
[2017-08-08] MEDS ORDERED: MAGNESIUM SULFATE 2 GM/50 ML 50 ML IVPB SCH (13:00)
[2017-08-08 14:00] VITALS: BP 138/72; RESP 20
[2017-08-08 20:17] VITALS: BP 132/76; RESP 18
[2017-08-08] MEDS ORDERED: INSULIN DETEMIR [LEVEMIR] 3ML CART SC SCH (21:00)
[2017-08-09 02:14] VITALS: BP 114/54; RESP 18
[2017-08-09] MEDS: SOD CHLORIDE 0.9% 1,000 ML IV SCH ×3 (04:00→12:07)
[2017-08-09] MEDS: LINAGLIPTIN 5 MG TABLET PO SCH (07:45)
[2017-08-09] MEDS: INSULIN ASPART [NOVOLOG] 3 ML PEN SC SCH ×4 (07:48→11:51)
[2017-08-09 08:22] VITALS: BP 138/74; RESP 18
[2017-08-09] MEDS: ENOXAPARIN 40 MG/0.4 ML SYG SC SCH (08:30)
[2017-08-09] MEDS: FAMOTIDINE 20 MG TAB PO SCH (08:30)
[2017-08-09] MEDS: metFORMIN (XR) 500 MG TAB PO SCH (08:30)
[2017-08-09] MEDS: MECLIZINE 25 MG TAB PO SCH ×2 (08:30→13:21)
[2017-08-09] MEDS: ACCU-CHEK XX SCH ×2 (10:00→13:58)
--- NOTE | 2017-08-09 11:24 | PN ---
ZO YO 08/09/17 1124: Date/Time of Note Date/Time of Note DATE: 08/09/17 TIME: 11:22 Assessment/Plan VTE Prophylaxis VTE Prophylaxis Intervention: ambulation Lines/Catheters IV Catheter Type (from Nrsg): Peripheral IV Urinary Cath still in place: No Assessment/Plan Chief Complaint/Hosp Course 1.Uncontrolled DM likely due to non compliance / HONK 2. Mild leukocytosis. 3. Hyponatremia likely secondary to pseudo due to the elevated blood sugars. 4. Mild acute kidney injury secondary to dehydration. 5. Hypertension, controlled. 6. Hyperlipidemia. 7. History of old cerebrovascular accident 8. Anemia 9. Onychomycosis toenails Problems: Assessment/Plan 1. 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 start Neurontin. Subjective 24 Hr Interval Summary Free Text/Dictation pain in feet Respiratory: no complaints Cardiovascular: no complaints Musculoskeletal: other (calf spasms, ) Exam/Review of Systems Vital Signs Vitals Vital Signs Date Time Temp Pulse Resp B/P Pulse Ox O2 Delivery O2 Flow Rate FiO2 08/09/17 08:22 98.6 79 18 138/74 96 08/06/17 17:00 Room Air Intake and Output 08/08/17 08/08/17 08/09/17 15:00 23:00 07:00 Intake Total 50 ml 2520 ml 1105 ml Balance 50 ml 2520 ml 1105 ml Exam Constitutional: alert, oriented Respiratory: clear to auscultation Cardiovascular: regular rate and rhythm Gastrointestinal: soft Results Result Diagram: 08/07/17 0539 08/07/17 0539 Results 24 hrs Laboratory Tests Test 08/08/17 12:24 08/08/17 15:07 08/08/17 17:23 08/08/17 20:26 Bedside Glucose 259 H 287 H 225 H 127 Test 08/09/17 07:43 08/09/17 10:06 Bedside Glucose 233 H 263 H Medications Medications Current Medications Ondansetron HCl (Zofran Inj) 4 mg Q6H PRN IV NAUSEA AND/OR VOMITING; Start at 19:00 Acetaminophen (Tylenol Tab) 650 mg Q6H PRN PO PAIN LEVEL 1-3 OR FEVER; Start at 19:00 Acetaminophen/ Hydrocodone Bitart ([place] (5/325)) 1 tab Q6H PRN PO MODERATE PAIN LEVEL 4-6; Start 08/06/17 at 19:00 Morphine Sulfate (morphine) 2 mg Q4H PRN IV SEVERE PAIN LEVEL 7-10; Start 08/06 at 19:00 Docusate Sodium (Colace) 100 mg Q12H PRN PO CONSTIPATION; Start 08/06/17 at 19: 00 Zolpidem Tartrate (Ambien) 5 mg QHS PRN PO SLEEP; Start 08/06/17 at 19:00 Famotidine (Pepcid) 20 mg Q12 PO Last administered on 08/09/17 08:30; Admin Dose 20 MG; Start 08/06/17 at 21:00 Enoxaparin Sodium (Lovenox) 40 mg DAILY SC Last administered on 08/09/17 08:30 ; Admin Dose 40 MG; Start 08/07/17 at 09:00 Miscellaneous Information 1 ea NOTE XX ; Start 08/06/17 at 20:00 Glucose (Glutose) 15 gm Q15M PRN PO DECREASED GLUCOSE; Start 08/06/17 at 20:00 Glucose (Glutose) 22.5 gm Q15M PRN PO DECREASED GLUCOSE; Start 08/06/17 at 20: 00 Dextrose (D50w Syringe) 25 ml Q15M PRN IV DECREASED GLUCOSE; Start 08/06/17 at 20:00 Dextrose (D50w Syringe) 50 ml Q15M PRN IV DECREASED GLUCOSE; Start 08/06/17 at 20:00 Glucagon (Glucagen) 1 mg Q15M PRN IM DECREASED GLUCOSE; Start 08/06/17 at 20:00 Glucose (Glutose) 15 gm Q15M PRN BUCCAL DECREASED GLUCOSE; Start 08/06/17 at 20 :00 Linagliptin (Tradjenta) 5 mg DAILY@08 PO Last administered on 08/09/17 07:45; Admin Dose 5 MG; Start 08/08/17 at 08:00 Insulin Detemir (Levemir) 48 unit Q24H SC Last administered on 08/08/17 20:41 ; Admin Dose 48 UNIT; Start 08/08/17 at 21:00 Meclizine HCl 25 mg 25 mg TID PO Last administered on 08/09/17 08:30; Admin Dose 25 MG; Start 08/08/17 at 13:00 Sodium Chloride (NS) 1,000 ml @ 125 mls/hr Q8H IV Last administered on t 20:36; Admin Dose 125 MLS/HR; Start 08/08/17 at 12:00 LEVY HADLEY MD 08/09/17 1602: Assessment/Plan Assessment/Plan Assessment/Plan Sugars 200'S better control today, on lantus 48 and novolog 24 tid with meals DM education given, glucometer given D/C home today and f/u PCP in 1 -2 weeks Exam/Review of Systems Results Result Diagram: 08/07/17 0539 08/07/17 0539 ZO YO Aug 09, 2017 11:24 LEVY HADLEY MD Aug 09, 2017 16:02
[2017-08-09] MEDS ORDERED: GABAPENTIN 100 MG CAP PO SCH (13:00)
[2017-08-09 14:21] VITALS: BP 127/72; RESP 18
--- NOTE | 2017-08-09 14:52 | PDOCDIS ---
Discharge Instructions CONDITION Patient Condition: Good HOME CARE INSTRUCTIONS: Special Diet: CARB CONTROL ACTIVITY: Activity Restrictions: Slowly Increase Activity FOLLOW UP/APPOINTMENTS Follow-up Plan with primary PCP SCHOOL/WORK RELEASE May return to School/Work with: With Restrictions ZO YO Aug 09, 2017 14:52
[2017-08-09] MEDS ORDERED: NOVO3I SC (14:55)
[2017-08-09] MEDS ORDERED: GABA100C14 PO (14:55)
[2017-08-09] MEDS ORDERED: LINA5TAB PO (14:55)
[2017-08-09] MEDS ORDERED: INSU100I27 SC (14:55)
[2017-08-09] MEDS ORDERED: MECL-77 PO (14:55)
--- NOTE | 2017-08-09 16:53 | CONS ---
Date/Time of Note Date/Time of Note DATE: 08/09/17 TIME: 16:51 Assessment/Plan Assessment/Plan Problems: (1) Type 2 diabetes mellitus with foot ulcer Status: Acute Comment: One issue arises and that the patient's insurance covers basically are as opposed to Lantus insulin. Basilars only available as a pen and the patient does not want a pen device, and prefers to use bottles and syringes. As such given of the discharge is having on Saturday when there is no way to get a prior authorization the patient has been supplied on his way out the door with a sample of the Lantus bottle from a separate source. Is done by the medical staff upon the hospital Qualifiers: Diabetes mellitus detention insulin use: with detention use Qualified Code : E11.621 - Type 2 diabetes mellitus with foot ulcer, with long-term current use of insulin Consultation Date/Type/Reason Admit Date/Time Aug 06, 2017 at 17:10 Initial Consult Date 08/06/17 Type of Consultation: Endocrine Reason for Consultation Diabetes mellitus type 2 Referring Provider: LEVY HADLEY MD 24 HR Interval Summary Free Text/Dictation Patient is improved to the point for discharge. Exam/Review of Systems Vital Signs Vitals Vital Signs Date Time Temp Pulse Resp B/P Pulse Ox O2 Delivery O2 Flow Rate FiO2 08/09/17 14:21 98.2 86 18 127/72 97 08/06/17 17:00 Room Air Intake and Output 08/08/17 08/08/17 08/09/17 15:00 23:00 07:00 Intake Total 50 ml 2520 ml 1105 ml Balance 50 ml 2520 ml 1105 ml Results Concur with the hospitalist team exam Result Diagram: 08/07/17 0539 08/07/17 0539 Results 24 hrs Laboratory Tests Test 08/08/17 17:23 08/08/17 20:26 08/09/17 07:43 08/09/17 10:06 Bedside Glucose 225 H 127 233 H 263 H Test 08/09/17 11:37 08/09/17 13:56 Bedside Glucose 207 203 Medications Medications Current Medications Ondansetron HCl (Zofran Inj) 4 mg Q6H PRN IV NAUSEA AND/OR VOMITING; Start at 19:00 Acetaminophen (Tylenol Tab) 650 mg Q6H PRN PO PAIN LEVEL 1-3 OR FEVER; Start at 19:00 Acetaminophen/ Hydrocodone Bitart ([place] (5/325)) 1 tab Q6H PRN PO MODERATE PAIN LEVEL 4-6; Start 08/06/17 at 19:00 Morphine Sulfate (morphine) 2 mg Q4H PRN IV SEVERE PAIN LEVEL 7-10; Start 08/06 at 19:00 Docusate Sodium (Colace) 100 mg Q12H PRN PO CONSTIPATION; Start 08/06/17 at 19: 00 Zolpidem Tartrate (Ambien) 5 mg QHS PRN PO SLEEP; Start 08/06/17 at 19:00 Famotidine (Pepcid) 20 mg Q12 PO Last administered on 08/09/17 08:30; Admin Dose 20 MG; Start 08/06/17 at 21:00 Enoxaparin Sodium (Lovenox) 40 mg DAILY SC Last administered on 08/09/17 08:30 ; Admin Dose 40 MG; Start 08/07/17 at 09:00 Miscellaneous Information 1 ea NOTE XX ; Start 08/06/17 at 20:00 Glucose (Glutose) 15 gm Q15M PRN PO DECREASED GLUCOSE; Start 08/06/17 at 20:00 Glucose (Glutose) 22.5 gm Q15M PRN PO DECREASED GLUCOSE; Start 08/06/17 at 20: 00 Dextrose (D50w Syringe) 25 ml Q15M PRN IV DECREASED GLUCOSE; Start 08/06/17 at 20:00 Dextrose (D50w Syringe) 50 ml Q15M PRN IV DECREASED GLUCOSE; Start 08/06/17 at 20:00 Glucagon (Glucagen) 1 mg Q15M PRN IM DECREASED GLUCOSE; Start 08/06/17 at 20:00 Glucose (Glutose) 15 gm Q15M PRN BUCCAL DECREASED GLUCOSE; Start 08/06/17 at 20 :00 Linagliptin (Tradjenta) 5 mg DAILY@08 PO Last administered on 08/09/17 07:45; Admin Dose 5 MG; Start 08/08/17 at 08:00 Insulin Detemir (Levemir) 48 unit Q24H SC Last administered on 08/08/17 20:41 ; Admin Dose 48 UNIT; Start 08/08/17 at 21:00 Meclizine HCl 25 mg 25 mg TID PO Last administered on 08/09/17 13:21; Admin Dose 25 MG; Start 08/08/17 at 13:00 Sodium Chloride (NS) 1,000 ml @ 125 mls/hr Q8H IV Last administered on 12:07; Admin Dose 125 MLS/HR; Start 08/08/17 at 12:00 Gabapentin (Neurontin) 100 mg TID PO Last administered on 08/09/17 13:21; Admin Dose 100 MG; Start 08/09/17 at 13:00 SAM JOSEPH MD Aug 09, 2017 16:53
--- NOTE | 2017-08-09 21:03 | DS ---
Date/Time of Note Date/Time of Note DATE: 08/09/17 TIME: 21:01 Discharge Summary Admission/Discharge Info Admit Date/Time Aug 06, 2017 at 17:10 Discharge Date/Time Aug 09, 2017 at 17:00 Discharge Diagnosis Hyperosmolar nonketotic diabetic coma, uncontrolled Diabetes mellitus type II, Hypertension, controlled, foot ulcer, overweight, s/p CVA, BPH, and dyslipidemia. Patient Condition: Good Consults Dr Evangelista endocrinology, MIRIAM MERRITT MD Procedures none Hx of Present Illness This is a 61-year-old male with a past medical history of diabetes for 17 years, history of BPH, hypertension, hypercholesteremia, and history of CVA in the past. He presented to the emergency department after having generalized weakness for the past few days. According to the patient,he is in the middle of changing his PCP, but he has still not gotten a new PCP yet. He has not checked his blood sugars for the last 20 days, and he has not taken his insulin for last 4 days as he ran out. He was feeling generalized weakness and he came to the emergency department. The patient usually takes Lantus 40 units at night and NPH 30 units in the morning. According to the patient, he has been eating snacks for last 2 to 3 days. Denies any abdominal pain, nausea, vomiting, diarrhea. On arrival to the ED, the patient had a blood glucose 700, sodium was 125, bicarb was 25, and patient was given normal saline 2.4 L. During hospitalization pt was given right diet, diabetic education, and restarted on injectable insulin. Pt reported leg spasm and started on Neurontin. Pt BS went down to 250 mg/dl and pt was discharged home Hospital Course 1.Uncontrolled DM likely due to non compliance / HONK 2. Mild leukocytosis. 3. Hyponatremia likely secondary to pseudo due to the elevated blood sugars. 4. Mild acute kidney injury secondary to dehydration. 5. Hypertension, controlled. 6. Hyperlipidemia. 7. History of old cerebrovascular accident 8. Anemia 9. Onychomycosis toenails Home Meds Active Scripts Meclizine Hcl* (Meclizine Hcl*) 25 Mg Tablet, 25 MG PO BID Y for lightheadness for 28 Days, TAB Prov:ZO YO 08/09/17 Linagliptin (TRADJENTA) 5 Mg Tablet, 5 MG PO DAILY@08 for 30 Days, TAB Prov:ZO YO 08/09/17 Insulin Detemir (Levemir Flextouch) 100 Unit/1 Ml Insuln.pen, 48 UNIT SC Q24H for 30 Days Prov:ZO YO 08/09/17 Insulin Aspart* (Novolog Insulin Pen*) 100 Unit/Ml Soln, 24 UNIT SC WITH MEALS for 30 Days Prov:ZO YO 08/09/17 Gabapentin* (Gabapentin*) 100 Mg Capsule, 100 MG PO TID for 60 Days, CAP Prov:ZO YO 08/09/17 Pantoprazole* (Pantoprazole*) 40 Mg Tablet.dr, 40 MG PO DAILY@06 for 30 Days Prov:ZO YO 04/19/17 Acetaminophen (MAPAP) 325 Mg Tablet, 650 MG PO Q6H Y for PAIN AND OR ELEVATED TEMP for 10 Days, TAB Prov:ZO YO 04/19/17 Reported Medications Insulin Isophan/Regular (Humulin 70/30) 100 Units/Ml Susp, 0-15 UNIT SC AC MEALS , EA 04/30/17 Clopidogrel Bisulfate (Clopidogrel) 75 Mg Tablet, 75 MG PO DAILY, #30 TAB 04/30/17 Aspirin* (Aspirin* EC) 81 Mg Tablet.dr, 81 MG PO DAILY, TAB 04/30/17 Multivitamins* (Theragran*) 1 Tab Tab, 1 TAB PO DAILY, TAB 04/18/17 Tamsulosin Hcl* (Tamsulosin Hcl*) 0.4 Mg Cap.er.24h, 0.4 MG PO DAILY, CAP 04/18/17 Lisinopril* (Lisinopril*) 5 Mg Tablet, 5 MG PO DAILY, #30 TAB 04/18/17 Simvastatin (Simvastatin) 10 Mg Tablet, 10 MG PO DAILY, #30 TAB 04/18/17 Follow-up Plan with primary PCP Primary Care Provider Tiki Damian Pending Labs Laboratory Tests Test 08/09/17 07:43 08/09/17 10:06 08/09/17 11:37 08/09/17 13:56 Bedside Glucose 233mg/dL (70-220) 263mg/dL (70-220) 207mg/dL (70-220) 203mg/dL (70-220) ZO YO Aug 09, 2017 21:03
== END 2017-08-09 17:00 | disposition home or self-care (01) | DRG 637 ==
LOC: E/R 10:34 → PP2 17:10
PROVIDERS: ADMIT Internal Medicine; ATTEND Internal Medicine
DX: E11.65 Type 2 diabetes mellitus with hyperglycemia (principal); E11.01 Type 2 diabetes mellitus with hyperosmolarity with coma; N17.9 Acute kidney failure, unspecified; E11.42 Type 2 diabetes mellitus with diabetic polyneuropathy; B35.1 Tinea unguium; I10 Essential (primary) hypertension; D72.829 Elevated white blood cell count, unspecified; E87.1 Hypo-osmolality and hyponatremia; E11.621 Type 2 diabetes mellitus with foot ulcer; L97.519 Non-pressure chronic ulcer of other part of right foot with unspecified severity; Z79.4 Long term (current) use of insulin; L97.529 Non-pressure chronic ulcer of other part of left foot with unspecified severity; E78.5 Hyperlipidemia, unspecified; Z86.73 Personal history of transient ischemic attack (TIA), and cerebral infarction without residual deficits; E86.0 Dehydration; H81.10 Benign paroxysmal vertigo, unspecified ear; T38.3X6A Underdosing of insulin and oral hypoglycemic [antidiabetic] drugs, initial encounter
CPT/HCPCS: 36415; 36600; 71010; 80048; 80053; 80061; 81003; 82803; 82962; 83036; 83605; 83690; 83735; 84100; 85025; 85610; 85730; 96372; J1650; J1815; J3475; J7030

== ENCOUNTER 2018-03-12 09:37 | Emergency (ER) | END 2018-03-12 16:00 | disposition home or self-care (01) ==

== ENCOUNTER 2018-10-31 08:18 | Emergency (ER) | END 2018-10-31 09:47 | disposition home or self-care (01) ==

== ENCOUNTER 2019-06-16 09:36 | Inpatient (IN) | payer OTHER ==
[~2019-06-16] VITALS: Ht 170.2 cm; Wt 79.4 kg
[~2019-06-16 09:36] MED LIST changes: +ACET500C5 PO; -ASPI-664 PO; +ASPI-817 PO; +GABA100C14 PO; +GLIP5TAB13 ORAL; +INSU100C SQ; +INSU100I27 SC; +INSU100I33 SC; +LANT3I SC; +LEVEM SC; +LINA5TAB PO; +LISI10TA2 PO; +MECL-77 PO; +NAPR-985 PO; +NOVO3I SC; +SIMV40TA2 PO; +SITA50TA2 PO; +TAMS-14 PO
[2019-06-16] MEDS ORDERED: SOD CHLORIDE 0.9% 790 ML IV ONE (10:30)
[2019-06-16] MEDS ORDERED: SOD CHLORIDE 0.9% 1,000 ML IV STA ×2 (10:40→12:31)
[2019-06-16] MEDS ORDERED: ACETAMINOPHEN 325 MG TAB PO PRN ×2 (12:30→15:30)
[2019-06-16] MEDS ORDERED: ONDANSETRON 4 MG INJ IV PRN ×2 (12:30→15:30)
--- NOTE | 2019-06-16 12:40 | ERD ---
ER Documentation Chief Complaint Chief Complaint my blood sugar high, took insulin this am, BS 262, neck pain this am HPI Patient is a 63-year-old male with diabetes and high cholesterol who presents with high cholesterol. The patient has bilateral leg pain, back pain, and neck pain. He is taking his insulin. He denies fevers. He said the pain started last night. He does have a primary doctor. ROS All systems reviewed and are negative except as per history of present illness. Medications Home Meds Reported Medications Insulin Lispro (Humalog) 100 Unit/1 Ml Cartridge, 45 UNIT SQ QAM, EA 06/16/19 Insulin Glargine,Hum.rec.anlog (Basaglar Kwikpen U-100) 100 Unit/1 Ml Insuln.pen, 45 UNIT SC QHS, EA 06/16/19 Simvastatin* (Zocor*) 40 Mg Tablet, 40 MG PO QHS, #30 TAB 06/16/19 Gabapentin* (Gabapentin*) 100 Mg Capsule, 100 MG PO DAILY, #90 CAP 06/16/19 Aspirin* (Aspirin* EC) 81 Mg Tablet.dr, 81 MG PO DAILY, TAB 06/16/19 Tamsulosin Hcl* (Flomax*) 0.4 Mg Cap.er.24h, 0.4 MG PO HS, CAP 06/16/19 Lisinopril* (Lisinopril*) 10 Mg Tablet, 10 MG PO DAILY, #30 TAB 06/16/19 Sitagliptin* (Januvia*) 50 Mg Tablet, 50 MG PO DAILY, #30 TAB 06/16/19 Discontinued Reported Medications Insulin Isophan/Regular (Humulin 70/30) 100 Units/Ml Susp, 0-15 UNIT SC AC MEALS, EA 04/30/17 Clopidogrel Bisulfate (Clopidogrel) 75 Mg Tablet, 75 MG PO DAILY, #30 TAB 04/30/17 Aspirin* (Aspirin* EC) 81 Mg Tablet.dr, 81 MG PO DAILY, TAB 04/30/17 Multivitamins* (Theragran*) 1 Tab Tab, 1 TAB PO DAILY, TAB 04/18/17 Tamsulosin Hcl* (Tamsulosin Hcl*) 0.4 Mg Cap.er.24h, 0.4 MG PO DAILY, CAP 04/18/17 Lisinopril* (Lisinopril*) 5 Mg Tablet, 5 MG PO DAILY, #30 TAB 04/18/17 Simvastatin (Simvastatin) 10 Mg Tablet, 10 MG PO DAILY, #30 TAB 04/18/17 Discontinued Scripts Naproxen* (Naprosyn*) 500 Mg Tablet, 500 MG PO BID PRN for PAIN AND/OR INFLAMMATION, #30 TAB Prov:PHYLLIS MUNIZ PA-C 10/31/18 Acetaminophen* (Tylophen*) 500 Mg Capsule, 1 CAP PO Q6H PRN for PAIN AND OR ELEVATED TEMP, #30 CAP Prov:GWEN SEGOVIA PA-C 03/12/18 Insulin Aspart* (Novolog Insulin Pen*) 100 Unit/Ml Soln, 24 UNIT SC .SLIDING SCALE AC PRN for QAC, #1 EA Prov:GWEN SEGOVIA PA-C 03/12/18 Insulin Detemir (Levemir) 100 Unit/1 Ml Vial, 48 UNIT SC DAILY, #1 VIAL Prov:GWEN SEGOVIA PA-C 03/12/18 Meclizine Hcl* (Meclizine Hcl*) 25 Mg Tablet, 25 MG PO BID PRN for lightheadness for 28 Days, TAB Prov:ZO YO NP 08/09/17 Linagliptin (TRADJENTA) 5 Mg Tablet, 5 MG PO DAILY@08 for 30 Days, TAB Prov:ZO YO NP 08/09/17 Insulin Detemir (Levemir Flextouch) 100 Unit/1 Ml Insuln.pen, 48 UNIT SC Q24H for 30 Days Prov:ZO YO NP 08/09/17 Insulin Aspart* (Novolog Insulin Pen*) 100 Unit/Ml Soln, 24 UNIT SC WITH MEALS for 30 Days Prov:ZO YO NP 08/09/17 Gabapentin* (Gabapentin*) 100 Mg Capsule, 100 MG PO TID for 60 Days, CAP Prov:ZO YO NP 08/09/17 Pantoprazole* (Pantoprazole*) 40 Mg Tablet.dr, 40 MG PO DAILY@06 for 30 Days Prov:ZO YO NP 04/19/17 Acetaminophen (MAPAP) 325 Mg Tablet, 650 MG PO Q6H PRN for PAIN AND OR ELEVATED TEMP for 10 Days, TAB Prov:ZO YO PLATING ENGINEER 04/19/17 Allergies Allergies: Coded Allergies: No Known Allergy (Unverified , 06/16/19) PMhx/Soc History of Surgery: Yes (appendectomy 2006) Anesthesia Reaction: No Hx Neurological Disorder: No Hx Respiratory Disorders: Yes (hx asthma ) Hx Cardiac Disorders: No Hx Psychiatric Problems: Yes (depression) Hx Miscellaneous Medical Probl: Yes (dm ) Hx Alcohol Use: No Hx Substance Use: No Hx Tobacco Use: No Smoking Status: Never smoker FmHx Family History: diabetes Physical Exam Vitals Vital Signs Date Temp Pulse Resp B/P (MAP) Pulse Ox O2 O2 Flow FiO2 Time Delivery Rate 06/16/19 80 18 107/64 99 Room Air 11:10 (78) 06/16/19 78 18 81/56 (64) 99 10:11 06/16/19 98.0 111 18 201/127 97 09:37 (151) Physical Exam Const: No acute distress Head: Atraumatic Eyes: Normal Conjunctiva ENT: Normal External Ears, Nose and Mouth. Neck: Full range of motion. No meningismus. Resp: Clear to auscultation bilaterally Cardio: Regular rate and rhythm, no murmurs Abd: Soft, non tender, non distended. Normal bowel sounds Skin: No petechiae or rashes Back: No midline or flank tenderness Ext: No cyanosis, or edema Neur: Awake and alert Psych: Normal Mood and Affect Result Diagram: 06/16/19 1025 06/16/19 1025 Results 24 hrs Laboratory Tests Test 06/16/19 09:40 06/16/19 10:17 06/16/19 10:22 06/16/19 10:25 Bedside Glucose 262 mg/dL 248 mg/dL Blood Gas Blood venous Specimen Source Arterial Blood 06/16/2019 10:30: Date Drawn 32 AM Arterial Blood VENOUS LINE Gas Puncture Site Nain Test N/A Venous Blood pH 7.343 Venous Blood 40.6 mmHG pCO2 (Temp Corrected) Venous Blood pO2 20.8 mmHG (Temp Corrected) Venous Blood 21.6 mmol/L HCO3 Venous Blood 33.6 mmHG Oxygen Saturation Venous Blood -3.9 mmol/L Base Excess Venous Blood 12.8 g/dl Total Hemoglobin Venous Blood 33.3 % Oxyhemoglobin Venous Blood 0.6 % Methemoglobin Carboxyhemoglobi 0.4 % n Blood Gas 37.0 C Temperature Blood Gas ROOM AIR Modality FiO2 21.0 % Blood Gas TM Notified Whom Blood Gas 06/16/2019 10:38: Notified Time 06 AM White Blood 9.8 10^3/ul Count Red Blood Count 4.39 10^6/ul Hemoglobin 12.9 g/dl Hematocrit 36.6 % Mean Corpuscular 83.4 fl Volume Mean Corpuscular 29.4 pg Hemoglobin Mean Corpuscular 35.2 g/dl Hemoglobin Donna nt Red Cell 13.8 % Distribution Width Platelet Count 237 10^3/UL Mean Platelet 10.7 fl Volume Immature 0.400 % Granulocytes % Neutrophils % 76.8 % Lymphocytes % 14.3 % Monocytes % 6.7 % Eosinophils % 1.2 % Basophils % 0.6 % Nucleated Red 0.0 /100WBC Blood Cells % Immature 0.040 10^3/ul Granulocytes # Neutrophils # 7.5 10^3/ul Lymphocytes # 1.4 10^3/ul Monocytes # 0.7 10^3/ul Eosinophils # 0.1 10^3/ul Basophils # 0.1 10^3/ul Nucleated Red 0.0 10^3/ul Blood Cells # Sodium Level 134 mmol/L Potassium Level 4.2 mmol/L Chloride Level 98 mmol/L Carbon Dioxide 22 mmol/L Level Anion Gap 14 Blood Urea 38 mg/dl Nitrogen Creatinine 2.28 mg/dl Est Glomerular 29 mL/min Filtrat Rate mL/min Glucose Level 226 mg/dl Calcium Level 9.5 mg/dl Phosphorus Level 2.8 mg/dl Magnesium Level 1.9 mg/dl Current Medications Medications Dose Sig/Grady Start Time Status Last (Trade) Ordered Route PRN Stop Time Admin Dose Reason Admin Sodium 790 ml @ ONCE ONCE 06/16/19 DC 06/16/19 Chloride 790 mls/hr IV 10:30 10:39 06/16/19 11:29 Sodium 1,000 ml @ Q1H STAT 06/16/19 DC 06/16/19 Chloride 1,000 mls/hr IV 10:40 11:31 06/16/19 11:39 Ondansetron 4 mg BRIDGE ORDER 06/16/19 HCl (Zofran PRN IV 12:30 Inj) NAUSEA/VOMITI 06/17/19 12:29 NG 650 mg ER BRIDGE 06/16/19 Acetaminophen PRN PO 12:30 (Tylenol .MILD PAIN 06/17/19 12:29 Tab) 1-3 OR TEMP Sodium 1,000 ml @ Q1H STAT 06/16/19 Chloride 1,000 mls/hr IV 12:31 06/16/19 13:30 Procedures/MDM Patient is a 63-year-old male who presents for muscle aches. He was found to have acute renal failure with a creatinine of over 2 and a previous creatinine in 2018 that was normal at 1. The patient was given approximately 2800 mL of fluid. The patient will be admitted to the care of Dr. Mckee as he has [employer] [place] [facility]. The patient will be admitted to a medical surgical bed. He has hyperglycemia but no diabetic ketoacidosis at this time. Departure Diagnosis: Primary Impression: ARF (acute renal failure) Acute renal failure type: unspecified Qualified Codes: N17.9 - Acute kidney failure, unspecified Additional Impression: Hyperglycemia Condition: BRAXTON Roth MD Jun 16, 2019 12:40
[2019-06-16 14:06] VITALS: Ht 170.2 cm; Wt 79.4 kg
[2019-06-16 14:20] VITALS: BP 106/53; PULSE 77; RESP 16
[2019-06-16] MEDS ORDERED: morphine 2 MG INJ IV PRN (15:30)
[2019-06-16] MEDS ORDERED: NACL 0.9% 3 ML SYG IV SCH (15:30)
[2019-06-16] MEDS: SOD CHLORIDE 0.9% 1,000 ML IV SCH (15:48)
[2019-06-16] MEDS ORDERED: DEXTROSE 50% 50 ML SYRINGE IV PRN ×2 (16:00)
[2019-06-16] MEDS ORDERED: GLUCOSE GEL 15 GRAM TUBE PO PRN ×2 (16:00)
[2019-06-16] MEDS ORDERED: GLUCAGON 1 MG INJ IM PRN (16:00)
[2019-06-16] MEDS ORDERED: GLUCOSE GEL 15 GRAM TUBE BUCCAL PRN (16:00)
[2019-06-16] MEDS: INSULIN ASPART [NOVOLOG] 3 ML PEN SC SCH ×2 (17:19→21:17)
[2019-06-16 19:43] VITALS: BP 100/55; PULSE 64; RESP 18
[2019-06-16] MEDS ORDERED: FAMOTIDINE 20 MG INJ IV SCH (21:00)
[2019-06-17 01:22] VITALS: BP 119/69; PULSE 89; RESP 17
[2019-06-17] MEDS: ACCU-CHEK XX SCH (02:00)
[2019-06-17] MEDS: SOD CHLORIDE 0.9% 1,000 ML IV SCH ×3 (02:00→16:59)
[2019-06-17 07:39] VITALS: BP 133/74; PULSE 80; RESP 18
[2019-06-17] MEDS: INSULIN ASPART [NOVOLOG] 3 ML PEN SC SCH ×7 (07:50→22:09)
[2019-06-17] MEDS: ENOXAPARIN 30 MG/0.3 ML SYG SC SCH (08:15)
--- NOTE | 2019-06-17 11:04 | HP ---
Date/Time of Note Date/Time of Note DATE: 06/17/19 TIME: 11:02 Assessment/Plan VTE Prophylaxis Risk score (from Ns)>0 risk: 2 SCD applied (from [facility]): No SCD contraindicated: other Pharmacological prophylaxis: LMWH Lines/Catheters IV Catheter Type (from [facility]): Peripheral IV Assessment/Plan Hospital Course 1) diabetes - monitor blood sugar - sliding scale insulin 2) hyperlipidemia - continue patient on simvastatin 3) hypertension - continue meds 4) pruritis - give benadryl prn Result Diagram: 06/17/19 0516 06/17/19 0516 Results 24hrs Laboratory Tests Test 06/16/19 17:09 06/16/19 20:50 06/17/19 02:37 06/17/19 05:16 Bedside Glucose 155 279 H 308 H White Blood Count 6.4 # Red Blood Count 3.94 L Hemoglobin 11.7 L Hematocrit 33.3 L Mean Corpuscular 84.5 Volume Mean Corpuscular 29.7 Hemoglobin Mean Corpuscular 35.1 Hemoglobin Concent Red Cell 14.2 Distribution Width Platelet Count 186 # Mean Platelet Volume 11.0 H Immature 0.300 Granulocytes % Neutrophils % 65.5 Lymphocytes % 22.2 Monocytes % 7.8 Eosinophils % 3.1 Basophils % 1.1 Nucleated Red Blood 0.0 Cells % Immature 0.020 Granulocytes # Neutrophils # 4.2 Lymphocytes # 1.4 Monocytes # 0.5 Eosinophils # 0.2 Basophils # 0.1 Nucleated Red Blood 0.0 Cells # Sodium Level 136 Potassium Level 5.2 H Chloride Level 109 # Carbon Dioxide Level 22 Anion Gap 5 # Blood Urea Nitrogen 23 #H Creatinine 1.22 # Est Glomerular 60 Filtrat Rate mL/min Glucose Level 318 H Hemoglobin A1c 12.9 H Calcium Level 8.2 L Total Bilirubin 0.5 Direct Bilirubin 0.00 Indirect Bilirubin 0.5 Aspartate Amino 28 Transf (AST/SGOT) Alanine 28 Aminotransferase (AL T/SGPT) Alkaline Phosphatase 59 Total Protein 6.4 Albumin 3.1 L Globulin 3.30 H Albumin/Globulin 0.93 Ratio Test 06/17/19 07:47 Bedside Glucose 318 H HPI/ROS Admit Date/Time Admit Date/Time Jun 16, 2019 at 12:29 Hx of Present Illness Patient with hypertension, hypercholesterolemia, diabetes comes in because of itching and being concerned regarding his hypercholesterolemia. Patient is not in dka but blood sugar is labile. PMH/Family/Social Past Medical History Medical History: diabetes, high cholesterol, hypertension Medications Current Medications IV Flush (NS 3 ml) 3 ml PER PROTOCOL IV ; Start 06/16/19 at 15:30 Ondansetron HCl (Zofran Inj) 4 mg Q6H PRN IV NAUSEA/VOMITING; Start 06/16/19 at 15:30 Acetaminophen (Tylenol Tab) 650 mg Q6H PRN PO .PAIN 1-3 OR TEMP; Start 06/16/19 at 15:30 Morphine Sulfate (morphine) 2 mg Q4H PRN IV .SEVERE PAIN 7-10; Start 06/16/19 at 15:30 Famotidine (Pepcid Iv) 20 mg DAILY@2100 IV Last administered on 06/16/19at 20:50; Admin Dose 20 MG; Start 06/16/19 at 21:00 Enoxaparin Sodium (Lovenox) 30 mg DAILY SC Last administered on 06/17/19at 08:15; Admin Dose 30 MG; Start 06/17/19 at 09:00 Diagnostic Test (Pha) (Accu-Chek) 1 ea 02 XX ; Start 06/17/19 at 02:00 Insulin Aspart (Novolog Insulin Pen) 5 unit WITH MEALS SC Last administered on 06/17/19at 07:50; Admin Dose 5 UNIT; Start 06/16/19 at 18:00 Sodium Chloride 1,000 ml @ 100 mls/hr Q10H IV Last administered on 06/17/19at 02:00; Admin Dose 100 MLS/HR; Start 06/16/19 at 16:00 Miscellaneous Information 1 ea NOTE XX ; Start 06/16/19 at 16:00 Glucose (Glutose) 15 gm Q15M PRN PO DECREASED GLUCOSE; Start 06/16/19 at 16:00 Glucose (Glutose) 22.5 gm Q15M PRN PO DECREASED GLUCOSE; Start 06/16/19 at 16:00 Dextrose (D50w Syringe) 25 ml Q15M PRN IV DECREASED GLUCOSE; Start 06/16/19 at 16:00 Dextrose (D50w Syringe) 50 ml Q15M PRN IV DECREASED GLUCOSE; Start 06/16/19 at 16:00 Glucagon (Glucagen) 1 mg Q15M PRN IM DECREASED GLUCOSE; Start 06/16/19 at 16:00 Glucose (Glutose) 15 gm Q15M PRN BUCCAL DECREASED GLUCOSE; Start 06/16/19 at 16:00 Insulin Aspart (Novolog Insulin Pen) NOVOLOG *MODERATE* ALGORITHM WITH MEALS BEDTIME SC Last administered on 06/17/19at 07:51; Admin Dose 10 UNIT; Start 06/17/19 at 08:00 Coded Allergies: No Known Allergy (Unverified , 06/16/19) Past Surgical History Past Surgical Hx: appendectomy Family History Significant Family History: hypertension Social History Smoking Status: Never smoker Exam/Review of Systems Vital Signs Vitals Vital Signs Date Temp Pulse Resp B/P (MAP) Pulse Ox O2 O2 Flow FiO2 Time Delivery Rate 06/17/19 98.1 80 18 133/74 97 07:39 (93) 06/16/19 Room Air 13:06 Intake and Output 06/16/19 06/16/19 06/17/19 1515:00 23:00 07:00 IntakeIntake Total 720 ml 1880 ml OutputOutput Total 1400 ml 1300 ml BalanceBalance -680 ml 580 ml Exam Constitutional: well developed Head: normocephalic, atraumatic Neck: supple Respiratory: clear to auscultation Cardiovascular: regular rate and rhythm Gastrointestinal: soft, non-tender Extremities: normal pulses GO LANGFORD Jun 17, 2019 11:04
[2019-06-17] MEDS ORDERED: DIPHENHYDRAMINE 50 MG INJ IM PRN (11:30)
[2019-06-17 14:30] VITALS: BP 108/53; PULSE 81; RESP 17
[2019-06-17 19:30] VITALS: BP 145/63; PULSE 77; RESP 18
[2019-06-17] MEDS ORDERED: FAMOTIDINE 20 MG TAB PO SCH (21:00)
[2019-06-17] MEDS ORDERED: TAMSULOSIN (SR) 0.4 MG CAP PO SCH (21:00)
[2019-06-17] MEDS ORDERED: INSULIN GLARGINE [LANTus] (100 UNITS/ML) SYG SC SCH (22:00)
[2019-06-18 01:17] VITALS: BP 133/67; PULSE 89; RESP 18
[2019-06-18] MEDS: SOD CHLORIDE 0.9% 1,000 ML IV SCH ×2 (02:38→08:00)
[2019-06-18] MEDS: ACCU-CHEK XX SCH (02:38)
[2019-06-18 07:36] VITALS: BP 137/79; PULSE 72; RESP 18
[2019-06-18] MEDS ORDERED: INSULIN GLARGINE [LANTus] (100 UNITS/ML) SYG SC SCH (07:43)
[2019-06-18] MEDS: INSULIN ASPART [NOVOLOG] 3 ML PEN SC SCH ×4 (08:31→12:43)
[2019-06-18] MEDS: ENOXAPARIN 30 MG/0.3 ML SYG SC SCH (08:39)
[2019-06-18] MEDS ORDERED: ASPIRIN (EC) 81 MG TAB PO SCH (09:00)
[2019-06-18] MEDS ORDERED: GABAPENTIN 100 MG CAP PO SCH (09:00)
[2019-06-18] MEDS ORDERED: LISINOPRIL 10 MG TAB PO SCH (09:00)
[2019-06-18 13:17] VITALS: BP 114/57; PULSE 79; RESP 18
--- NOTE | 2019-06-18 15:40 | DS ---
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 Patient is not in dka but blood sugar is labile. Hospital Course Patient with hypertension, hypercholesterolemia, diabetes comes in because of itching and being concerned regarding his hypercholesterolemia. Patient is not in dka but blood sugar is labile. Patient was seen by the boat worker and will be sent home to follow up with his regular physician. 1) diabetes - monitor blood sugar - sliding scale insulin 2) hyperlipidemia - continue patient on simvastatin 3) hypertension - continue meds 4) pruritis - give benadryl prn Home Meds Reported Medications Insulin Lispro (Humalog) 100 Unit/1 Ml Cartridge, 45 UNIT SQ QAM, EA 06/16/19 Insulin Glargine,Hum.rec.anlog (Basaglar Kwikpen U-100) 100 Unit/1 Ml Insuln.pen, 45 UNIT SC QHS, EA 06/16/19 Simvastatin* (Zocor*) 40 Mg Tablet, 40 MG PO QHS, #30 TAB 06/16/19 Gabapentin* (Gabapentin*) 100 Mg Capsule, 100 MG PO DAILY, #90 CAP 06/16/19 Aspirin* (Aspirin* EC) 81 Mg Tablet.dr, 81 MG PO DAILY, TAB 06/16/19 Tamsulosin Hcl* (Flomax*) 0.4 Mg Cap.er.24h, 0.4 MG PO HS, CAP 06/16/19 Lisinopril* (Lisinopril*) 10 Mg Tablet, 10 MG PO DAILY, #30 TAB 06/16/19 Sitagliptin* (Januvia*) 50 Mg Tablet, 50 MG PO DAILY, #30 TAB 06/16/19 Discontinued Reported Medications Insulin Isophan/Regular (Humulin 70/30) 100 Units/Ml Susp, 0-15 UNIT SC AC MEALS, EA 04/30/17 Clopidogrel Bisulfate (Clopidogrel) 75 Mg Tablet, 75 MG PO DAILY, #30 TAB 04/30/17 Aspirin* (Aspirin* EC) 81 Mg Tablet.dr, 81 MG PO DAILY, TAB 04/30/17 Multivitamins* (Theragran*) 1 Tab Tab, 1 TAB PO DAILY, TAB 04/18/17 Tamsulosin Hcl* (Tamsulosin Hcl*) 0.4 Mg Cap.er.24h, 0.4 MG PO DAILY, CAP 04/18/17 Lisinopril* (Lisinopril*) 5 Mg Tablet, 5 MG PO DAILY, #30 TAB 04/18/17 Simvastatin (Simvastatin) 10 Mg Tablet, 10 MG PO DAILY, #30 TAB 04/18/17 Discontinued Scripts Naproxen* (Naprosyn*) 500 Mg Tablet, 500 MG PO BID PRN for PAIN AND/OR INFLAMMATION, #30 TAB Prov:PHYLLIS MUNIZ PA-C 10/31/18 Acetaminophen* (Tylophen*) 500 Mg Capsule, 1 CAP PO Q6H PRN for PAIN AND OR ELEVATED TEMP, #30 CAP Prov:GWEN SEGOVIA PA-C 03/12/18 Insulin Aspart* (Novolog Insulin Pen*) 100 Unit/Ml Soln, 24 UNIT SC .SLIDING SCALE AC PRN for QAC, #1 EA Prov:GWEN SEGOVIA PA-C 03/12/18 Insulin Detemir (Levemir) 100 Unit/1 Ml Vial, 48 UNIT SC DAILY, #1 VIAL Prov:GWEN SEGOVIA PA-C 03/12/18 Meclizine Hcl* (Meclizine Hcl*) 25 Mg Tablet, 25 MG PO BID PRN for lightheadness for 28 Days, TAB Prov:ZO YO NP 08/09/17 Linagliptin (TRADJENTA) 5 Mg Tablet, 5 MG PO DAILY@08 for 30 Days, TAB Prov:ZO YO NP 08/09/17 Insulin Detemir (Levemir Flextouch) 100 Unit/1 Ml Insuln.pen, 48 UNIT SC Q24H for 30 Days Prov:ZO YO NP 08/09/17 Insulin Aspart* (Novolog Insulin Pen*) 100 Unit/Ml Soln, 24 UNIT SC WITH MEALS for 30 Days Prov:ZO YO NP 08/09/17 Gabapentin* (Gabapentin*) 100 Mg Capsule, 100 MG PO TID for 60 Days, CAP Prov:ZO YO NP 08/09/17 Pantoprazole* (Pantoprazole*) 40 Mg Tablet.dr, 40 MG PO DAILY@06 for 30 Days Prov:ZO YO NP 04/19/17 Acetaminophen (MAPAP) 325 Mg Tablet, 650 MG PO Q6H PRN for PAIN AND OR ELEVATED TEMP for 10 Days, TAB Prov:ZO YO NP 04/19/17 Primary Care Provider Not On Staff Doctor Pending Labs Laboratory Tests Test 06/17/19 17:01 06/17/19 22:06 06/18/19 02:22 06/18/19 08:27 Bedside 272 269 245 284 Glucose mg/dL (70-220) mg/dL (70-220) mg/dL (70-220) mg/dL (70-220) Test 06/18/19 12:36 Bedside 314 Glucose mg/dL (70-220) GO LANGFORD Jun 18, 2019 15:40
== END 2019-06-18 17:10 | disposition home or self-care (01) | DRG 639 ==
LOC: E/R 09:36 → 2NE 12:29
PROVIDERS: ADMIT Internal Medicine; ATTEND Internal Medicine
DX: E11.65 Type 2 diabetes mellitus with hyperglycemia (principal); I10 Essential (primary) hypertension; L29.9 Pruritus, unspecified; E78.00 Pure hypercholesterolemia, unspecified
CPT/HCPCS: 36415; 80048; 80053; 82803; 82962; 83036; 83735; 84100; 85025; J1650; J1815; J7030

== ENCOUNTER 2019-06-22 13:17 | Inpatient (IN) | payer OTHER ==
[~2019-06-22] VITALS: Ht 170.2 cm; Wt 80.9 kg
[~2019-06-22 13:17] MED LIST changes: -ACET325T40 PO; -ACET500C5 PO; -CLOP75TA27 PO; -INSU100I27 SC; -LEVEM SC; -LINA5TAB PO; -LISI-313 PO; -MECL-77 PO; -MULTI PO; -NAPR-985 PO; -NOVO3I SC; -NOVO7030 SC; -PANT40TA4 PO; -TAMS0.4C2 PO; -ZOC10 PO
--- NOTE | 2019-06-22 14:19 | ERD ---
ER Documentation Chief Complaint Chief Complaint SHORT HPI The patient is a 63-year-old male, presenting to the ER because of chronic he adache and chronic neck pain. he came to the ER by bus, denies fever, chills, dizziness, chest pain, dyspnea, abdominal pain, vomiting, dysuria, diarrhea. He does not smoke nor drink, denies illicit drug Past medical history: Diabetes mellitus, dyslipidemia, BPH, hypertension, depression Past surgical history: Appendectomy ROS All systems reviewed and are negative except as per history of present illness. Medications Home Meds Reported Medications Glipizide* (Glipizide*) 5 Mg Tablet, 1 TAB ORAL DAILY 06/22/19 Insulin Glargine* (Lantus*) 100 Unit/Ml Soln, 40 UNIT SC QHS, #1 VIAL 06/22/19 Insulin Lispro (Humalog) 100 Unit/1 Ml Cartridge, 40 UNIT SQ QAM, EA 06/16/19 Simvastatin* (Zocor*) 40 Mg Tablet, 40 MG PO QHS, #30 TAB 06/16/19 Gabapentin* (Gabapentin*) 100 Mg Capsule, 100 MG PO DAILY, #90 CAP 06/16/19 Aspirin* (Aspirin* EC) 81 Mg Tablet.dr, 81 MG PO DAILY, TAB 06/16/19 Tamsulosin Hcl* (Flomax*) 0.4 Mg Cap.er.24h, 0.4 MG PO HS, CAP 06/16/19 Sitagliptin* (Januvia*) 50 Mg Tablet, 50 MG PO DAILY, #30 TAB 06/16/19 Discontinued Reported Medications Insulin Glargine,Hum.rec.anlog (Emileeaglhebert Walker U-100) 100 Unit/1 Ml Insuln.pen, 45 UNIT SC QHS, EA 06/16/19 Lisinopril* (Lisinopril*) 10 Mg Tablet, 10 MG PO DAILY, #30 TAB 06/16/19 Insulin Isophan/Regular (Humulin 70/30) 100 Units/Ml Susp, 0-15 UNIT SC AC MEALS, EA 04/30/17 Clopidogrel Bisulfate (Clopidogrel) 75 Mg Tablet, 75 MG PO DAILY, #30 TAB 04/30/17 Aspirin* (Aspirin* EC) 81 Mg Tablet.dr, 81 MG PO DAILY, TAB 04/30/17 Multivitamins* (Theragran*) 1 Tab Tab, 1 TAB PO DAILY, TAB 04/18/17 Tamsulosin Hcl* (Tamsulosin Hcl*) 0.4 Mg Cap.er.24h, 0.4 MG PO DAILY, CAP 04/18/17 Lisinopril* (Lisinopril*) 5 Mg Tablet, 5 MG PO DAILY, #30 TAB 04/18/17 Simvastatin (Simvastatin) 10 Mg Tablet, 10 MG PO DAILY, #30 TAB 04/18/17 Discontinued Scripts Naproxen* (Naprosyn*) 500 Mg Tablet, 500 MG PO BID PRN for PAIN AND/OR INFLAMMATION, #30 TAB Prov:PHYLLIS MUNIZ PA-C 10/31/18 Acetaminophen* (Tylophen*) 500 Mg Capsule, 1 CAP PO Q6H PRN for PAIN AND OR ELEVATED TEMP, #30 CAP Prov:GWEN SEGOVIA PA-C 03/12/18 Insulin Aspart* (Novolog Insulin Pen*) 100 Unit/Ml Soln, 24 UNIT SC .SLIDING SCALE AC PRN for QAC, #1 EA Prov:GWEN SEGOVIA PA-C 03/12/18 Insulin Detemir (Levemir) 100 Unit/1 Ml Vial, 48 UNIT SC DAILY, #1 VIAL Prov:GWEN SEGOVIA PA-C 03/12/18 Meclizine Hcl* (Meclizine Hcl*) 25 Mg Tablet, 25 MG PO BID PRN for lightheadness for 28 Days, TAB Prov:ZO YO NP 08/09/17 Linagliptin (TRADJENTA) 5 Mg Tablet, 5 MG PO DAILY@08 for 30 Days, TAB Prov:ZO YO NP 08/09/17 Insulin Detemir (Levemir Flextouch) 100 Unit/1 Ml Insuln.pen, 48 UNIT SC Q24H for 30 Days Prov:ZO YO NP 08/09/17 Insulin Aspart* (Novolog Insulin Pen*) 100 Unit/Ml Soln, 24 UNIT SC WITH MEALS for 30 Days Prov:ZO YO NP 08/09/17 Gabapentin* (Gabapentin*) 100 Mg Capsule, 100 MG PO TID for 60 Days, CAP Prov:ZO YO NP 08/09/17 Pantoprazole* (Pantoprazole*) 40 Mg Tablet.dr, 40 MG PO DAILY@06 for 30 Days Prov:ZO YO NP 04/19/17 Acetaminophen (MAPAP) 325 Mg Tablet, 650 MG PO Q6H PRN for PAIN AND OR ELEVATED TEMP for 10 Days, TAB Prov:ZO YO NP 04/19/17 Allergies Allergies: Coded Allergies: No Known Allergy (Unverified , 06/22/19) PMhx/Soc History of Surgery: Yes (appendectomy) Anesthesia Reaction: No Hx Neurological Disorder: Yes (neuropaty) Hx Respiratory Disorders: No Hx Cardiac Disorders: Yes (HTN,High cholesterol) Hx Psychiatric Problems: No Hx Miscellaneous Medical Probl: Yes (dm ) Hx Alcohol Use: No Hx Substance Use: No Hx Tobacco Use: No Physical Exam Vitals Vital Signs Date Temp Pulse Resp B/P (MAP) Pulse Ox O2 O2 Flow FiO2 Time Delivery Rate 06/22/19 98.3 110 18 80/50 (60) 96 13:49 Physical Exam Const: No acute distress. Head: Atraumatic. Eyes: Normal Conjunctiva. ENT: Normal External Ears, Nose and Mouth. Neck: Full range of motion. No meningismus. Resp: Clear to auscultation bilaterally. Cardio: Regular tachycardic Abd: Soft, non distended, normal bowel sounds, non tender. Skin: No petechiae or rashes. Back: No midline or flank tenderness. Ext: No cyanosis, or edema. Neur: Awake and alert. No focal deficit Psych: Normal Mood and Affect. Result Diagram: 06/22/19 1517 06/22/19 1517 Results 24 hrs Laboratory Tests Test 06/22/19 13:47 06/22/19 14:32 06/22/19 14:48 06/22/19 15:17 Bedside Glucose 321 mg/dL Blood Gas Blood venous Specimen Source Arterial Blood 06/22/2019 2:43:37 Date Drawn PM Arterial Blood VENOUS LINE Gas Puncture Site Nain Test N/A Venous Blood pH 7.393 Venous Blood pCO2 29.5 mmHG (Temp Corrected) Venous Blood pO2 48.2 mmHG (Temp Corrected) Venous Blood HCO3 17.6 mmol/L Venous Blood 84.9 mmHG Oxygen Saturation Venous Blood Base -6.1 mmol/L Excess Venous Blood 12.2 g/dl Total Hemoglobin Venous Blood 84.4 % Oxyhemoglobin Venous Blood 0.3 % Methemoglobin Carboxyhemoglobin 0.3 % Blood Gas 37.0 C Temperature Blood Gas ROOM AIR Modality FiO2 21.0 % Blood Gas RT Notified Whom Blood Gas 06/22/2019 2:54:04 Notified Time PM POC Venous 2.4 mmol/L Lactate White Blood Count 7.7 10^3/ul Red Blood Count 3.91 10^6/ul Hemoglobin 11.8 g/dl Hematocrit 33.7 % Mean Corpuscular 86.2 fl Volume Mean Corpuscular 30.2 pg Hemoglobin Mean Corpuscular 35.0 g/dl Hemoglobin Concen t Red Cell 14.7 % Distribution Width Platelet Count 227 10^3/UL Mean Platelet 11.3 fl Volume Immature 0.300 % Granulocytes % Neutrophils % 70.6 % Lymphocytes % 17.1 % Monocytes % 9.2 % Eosinophils % 2.2 % Basophils % 0.6 % Nucleated Red 0.0 /100WBC Blood Cells % Immature 0.020 10^3/ul Granulocytes # Neutrophils # 5.4 10^3/ul Lymphocytes # 1.3 10^3/ul Monocytes # 0.7 10^3/ul Eosinophils # 0.2 10^3/ul Basophils # 0.1 10^3/ul Nucleated Red 0.0 10^3/ul Blood Cells # Prothrombin Time 12.4 Sec Prothrombin Time 1.0 Ratio INR International 0.91 Normalized Ratio Activated 28.0 Sec Partial Thrombopl ast Time Sodium Level 136 mmol/L Potassium Level 4.7 mmol/L Chloride Level 105 mmol/L Carbon Dioxide 20 mmol/L Level Anion Gap 11 Blood Urea 16 mg/dl Nitrogen Creatinine 1.70 mg/dl Est Glomerular 41 mL/min Filtrat Rate mL/min Glucose Level 275 mg/dl Calcium Level 9.4 mg/dl Phosphorus Level 2.9 mg/dl Magnesium Level 1.9 mg/dl Total Bilirubin 0.3 mg/dl Direct Bilirubin 0.00 mg/dl Indirect 0.3 mg/dl Bilirubin Aspartate Amino 30 IU/L Transf (AST/SGOT) Alanine 39 IU/L Aminotransferase (ALT/SGPT) Alkaline 80 IU/L Phosphatase Troponin I < 0.012 ng/ml Total Protein 7.1 g/dl Albumin 3.8 g/dl Globulin 3.30 g/dl Albumin/Globulin 1.15 Ratio Current Medications Medications Dose Sig/Grady Start Time Status Last (Trade) Ordered Route PRN Stop Time Admin Dose Reason Admin Sodium 2,430 ml BOLUS OVER 2 06/22/19 DC 06/22/19 Chloride HOURS STAT 14:29 06/22/19 14:52 (NS) IV* 14:31 Piperacillin 100 ml @ ONCE ONCE 06/22/19 DC 06/22/19 Sod/ 200 mls/hr IVPB 15:00 06/22/19 14:56 Tazobactam 15:29 Sod Procedures/MDM EKG: Read by emergency physician Rate/Rhythm: Normal Sinus Rhythm 82 beats/min QRS, ST, T-waves: No ST elevation, no T inversion, IRBBB Impression: Abnormal EKG [place] [address] Radiology Main Line: [phone] DIAGNOSTIC IMAGING REPORT Patient: TAI SPENCER : 1955 Age: 63 Sex: M MR #: [id number] DOS: 06/22/19 1429 Ordering MD: EDWIGE BAILON MD Location: E/R Room/Bed: PROCEDURE: Single view chest. CLINICAL INDICATION: Possible sepsis TECHNIQUE: Single view of the chest was obtained COMPARISON: XA CR CHEST 04/25/2017 FINDINGS: Monitoring leads overlie the chest. Lung volumes are diminished. There is no airspace consolidation, focal infiltrate or evidence of an effusion. Cardiac silhouette and mediastinal contours are unremarkable. There is minor degenerative spurring throughout the thoracic spine. Healed fracture of the left clavicle. IMPRESSION: Moderately diminished lung volumes, otherwise no acute findings. RPTAT: [facility] Physician Nava Date Time Electronically viewed and signed by Physician Nava on 06/22/2019 15:10 xB/ CC: EDWIGE BAILON MD [id number] MEDICAL MAKING DECISION: The patient is a 63-year-old female, presenting with acute severe sepsis, acute hyperglycemia, acute dehydration, acute renal sufficiency He was treated with normal saline 30 mm/kg IV and Zosyn IV empirically for acute severe sepsis The differential diagnoses considered include but are not limited to pneumonia, UTI, pyelonephritis, HHS, DKA MDM: Patient's infectious symptoms have not stabilized and the patient is at risk of rapid decompensation. The patient will be admitted for careful hydration, antibiotic therapy, and infectious source control. SEVERE SEPSIS CRITERIA: Infectious source: unknown End organ damage indicated by: [Lactate > 2.0 mmol/L Hypotension (SBP < 90 or >40 mmHG drop or MAP < 65) SEPSIS MANAGEMENT Time of recognition of severe sepsis: 2:50p. 3 HOUR BUNDLE Blood cultures x 2 before broad-spectrum antibiotics: [Yes] 30 ml/kg NS bolus [Completed] Initial lactate []2.4 Repeat lactate Pending SEPTIC SHOCK ASSESSMENT: [No] lactic acid > 4.0 [No] Persistent hypotension (SBP < 90 or 40 mmHg drop, MAP < 65) despite 30 mL/kg IV fluid bolus CRITICAL CARE Critical care time [35] minutes Emergent fluid management while maintaining close respiratory support. Provision of immediate and broad-spectrum antibiotic therapy. Simultaneous assessment for possible sources in order to direct targeted therapy. Consideration for invasive and chemical support to prevent cardiopulmonary collapse. Critical care time is independent of procedures performed. Departure Diagnosis: Primary Impression: Severe sepsis Additional Impressions: Hyperglycemia Dehydration Renal insufficiency Anemia Condition: Stable Comments I discussed the findings with the patient. I notified the patient with Dr. Mckee at 4:25 p via [employer], who was made aware of the lab, the treatment, the patient condition. The patient is admitted to Tel Disclaimer: Inadvertent spelling and grammatical errors are likely due to EHR/dictation software use and do not reflect on the overall quality of patient care. Also, please note that the electronic time recorded on this note does not necessarily reflect the actual time of the patient encounter. EDWIGE BAILON MD Jun 22, 2019 14:19
[2019-06-22] MEDS ORDERED: SODIUM CHLORIDE 0.9% 1L BAG IV* STA (14:29)
[2019-06-22] MEDS ORDERED: PIPER-TAZO 3.375 GM IV (PMX) 100 ML IVPB ONE (15:00)
[2019-06-22] MEDS ORDERED: NACL 0.9% 3 ML SYG IV SCH (19:00)
[2019-06-22] MEDS ORDERED: ACETAMINOPHEN 325 MG TAB PO PRN (19:00)
[2019-06-22] MEDS ORDERED: morphine 2 MG INJ IV PRN (19:00)
[2019-06-22] MEDS ORDERED: ONDANSETRON 4 MG INJ IV PRN (19:00)
[2019-06-22] MEDS: SOD CHLORIDE 0.9% 1,000 ML IV SCH (19:06)
[2019-06-22] MEDS: FAMOTIDINE 20 MG INJ IV SCH (20:54)
[2019-06-22 23:40] VITALS: Ht 170.2 cm; Wt 80.9 kg
[2019-06-22 23:52] VITALS: BP 146/73; PULSE 73; RESP 20
[2019-06-23] MEDS: PIPER-TAZO 3.375 GM IV (PMX) 100 ML IVPB SCH ×4 (00:22→17:22)
[2019-06-23] MEDS ORDERED: GLUCAGON 1 MG INJ IM PRN (01:30)
[2019-06-23] MEDS ORDERED: GLUCOSE GEL 15 GRAM TUBE BUCCAL PRN (01:30)
[2019-06-23] MEDS ORDERED: DEXTROSE 50% 50 ML SYRINGE IV PRN ×2 (01:30)
[2019-06-23] MEDS ORDERED: GLUCOSE GEL 15 GRAM TUBE PO PRN ×2 (01:30)
[2019-06-23] MEDS: ACCU-CHEK XX SCH ×3 (02:38→21:48)
[2019-06-23 04:00] VITALS: BP 138/78; RESP 20
[2019-06-23] MEDS: SOD CHLORIDE 0.9% 1,000 ML IV SCH ×2 (05:06→14:50)
[2019-06-23] MEDS: INSULIN ASPART [NOVOLOG] 3 ML PEN SC SCH ×4 (08:21→21:54)
[2019-06-23] MEDS: ENOXAPARIN 30 MG/0.3 ML SYG SC SCH (08:21)
[2019-06-23 08:22] VITALS: BP 146/83; PULSE 74; RESP 18
[2019-06-23 12:30] VITALS: BP 135/67; PULSE 71; RESP 18
--- NOTE | 2019-06-23 14:06 | HP ---
Date/Time of Note Date/Time of Note DATE: 06/23/19 TIME: 14:04 Assessment/Plan VTE Prophylaxis Risk score (from Ns)>0 risk: 3 SCD applied (from Ns): Yes Pharmacological prophylaxis: LMWH Lines/Catheters IV Catheter Type (from [facility]): Peripheral IV Urinary Cath still in place: No Assessment/Plan Hospital Course 1) hypotension - IV fluids 2) possible sepsis - IV antibiotics 3) diabetes mellitus - monitor blood sugar - sliding scale insulin Result Diagram: 06/23/19 0554 06/23/19 0554 Results 24hrs Laboratory Tests Test 06/22/19 14:31 06/22/19 14:32 06/22/19 14:48 06/22/19 15:17 Bedside Glucose 301 H Blood Gas Specimen Blood venous Source Arterial Blood 06/22/2019 2:43:37 Date Drawn PM Arterial Blood Gas VENOUS LINE Puncture Site Nain Test N/A Venous Blood pH 7.393 Venous Blood pCO2 29.5 L (Temp Corrected) Venous Blood pO2 48.2 H (Temp Corrected) Venous Blood HCO3 17.6 L Venous Blood 84.9 H Oxygen Saturation Venous Blood Base -6.1 L Excess Venous Blood Total 12.2 Hemoglobin Venous Blood 84.4 Oxyhemoglobin Venous Blood 0.3 Methemoglobin Carboxyhemoglobin 0.3 Blood Gas 37.0 Temperature Blood Gas Modality ROOM AIR FiO2 21.0 Blood Gas Notified RT Whom Blood Gas Notified 06/22/2019 2:54:04 Time PM POC Venous Lactate 2.4 *H White Blood Count 7.7 # Red Blood Count 3.91 L Hemoglobin 11.8 L Hematocrit 33.7 L Mean Corpuscular 86.2 Volume Mean Corpuscular 30.2 Hemoglobin Mean Corpuscular 35.0 Hemoglobin Concent Red Cell 14.7 H Distribution Width Platelet Count 227 # Mean Platelet 11.3 H Volume Immature 0.300 Granulocytes % Neutrophils % 70.6 Lymphocytes % 17.1 Monocytes % 9.2 Eosinophils % 2.2 Basophils % 0.6 Nucleated Red 0.0 Blood Cells % Immature 0.020 Granulocytes # Neutrophils # 5.4 Lymphocytes # 1.3 Monocytes # 0.7 Eosinophils # 0.2 Basophils # 0.1 Nucleated Red 0.0 Blood Cells # Prothrombin Time 12.4 Prothrombin Time 1.0 Ratio INR International 0.91 Normalized Ratio Activated 28.[address] Time Sodium Level 136 Potassium Level 4.7 Chloride Level 105 Carbon Dioxide 20 L Level Anion Gap 11 Blood Urea 16 Nitrogen Creatinine 1.70 H Est Glomerular 41 L Filtrat Rate mL/min Glucose Level 275 H Calcium Level 9.4 Phosphorus Level 2.9 Magnesium Level 1.9 Total Bilirubin 0.3 Direct Bilirubin 0.00 Indirect Bilirubin 0.3 Aspartate Amino 30 Transf (AST/SGOT) Alanine 39 Aminotransferase ( ALT/SGPT) Alkaline 80 Phosphatase Troponin I < 0.012 Total Protein 7.1 Albumin 3.8 Globulin 3.30 H Albumin/Globulin 1.15 Ratio Test 06/22/19 16:37 06/22/19 16:45 06/22/19 17:59 06/22/19 21:31 Urine Color YELLOW Urine Clarity CLEAR Urine pH 5.0 Urine Specific 1.008 Cascade Urine Ketones NEGATIVE Urine Nitrite NEGATIVE Urine Bilirubin NEGATIVE Urine Urobilinogen NEGATIVE Urine Leukocyte NEGATIVE Esterase Urine Hemoglobin NEGATIVE Urine Glucose 1+ H Urine Total NEGATIVE Protein Bedside Urine pH 5.5 (LAB) Bedside Urine Negative Protein (LAB) Bedside Urine Negative Glucose (UA) Bedside Urine Negative Ketones (LAB) Bedside Urine Negative Blood Bedside Urine Negative Nitrite (LAB) Bedside Urine Negative Leukocyte Esterase (L Lactic Acid Level 1.8 1.4 Test 06/23/19 00:28 06/23/19 05:36 06/23/19 05:54 06/23/19 08:12 Bedside Glucose 226 H 270 H Hemoglobin A1c 12.4 H White Blood Count 7.1 Red Blood Count 3.69 L Hemoglobin 11.0 L Hematocrit 32.2 L Mean Corpuscular 87.3 Volume Mean Corpuscular 29.8 Hemoglobin Mean Corpuscular 34.2 Hemoglobin Concent Red Cell 14.6 H Distribution Width Platelet Count 206 Mean Platelet 11.0 H Volume Immature 0.600 H Granulocytes % Neutrophils % 64.2 Lymphocytes % 21.1 Monocytes % 9.1 Eosinophils % 4.1 Basophils % 0.9 Nucleated Red 0.0 Blood Cells % Immature 0.040 H Granulocytes # Neutrophils # 4.5 Lymphocytes # 1.5 Monocytes # 0.6 Eosinophils # 0.3 Basophils # 0.1 Nucleated Red 0.0 Blood Cells # Sodium Level 138 Potassium Level 4.9 Chloride Level 111 H Carbon Dioxide 20 L Level Anion Gap 7 Blood Urea 14 Nitrogen Creatinine 1.25 H Est Glomerular 58 L Filtrat Rate mL/min Glucose Level 271 H Calcium Level 8.3 L Total Bilirubin 0.5 Direct Bilirubin 0.00 Indirect Bilirubin 0.5 Aspartate Amino 22 Transf (AST/SGOT) Alanine 35 Aminotransferase ( ALT/SGPT) Alkaline 57 Phosphatase Total Protein 5.9 #L Albumin 2.9 L Globulin 3.00 Albumin/Globulin 0.96 Ratio Test 06/23/19 11:42 Bedside Glucose 303 H HPI/ROS Admit Date/Time Admit Date/Time Jun 22, 2019 at 16:54 Hx of Present Illness Patient with hypertension, hyperlipidemia, diabetes comes in to the ER with hypotension and possible sepsis. Patient was given IV fluids and his blood pressure improved. Patient also given antibiotics for possible sepsis. He is admitted for further treatment. PMH/Family/Social Past Medical History Medical History: diabetes, high cholesterol, hypertension Medications Current Medications Sodium Chloride 1,000 ml @ 100 mls/hr Q10H IV Last administered on 06/23/19at 05:06; Admin Dose 100 MLS/HR; Start 06/22/19 at 18:50 IV Flush (NS 3 ml) 3 ml PER PROTOCOL IV ; Start 06/22/19 at 19:00 Ondansetron HCl (Zofran Inj) 4 mg Q6H PRN IV NAUSEA/VOMITING; Start 06/22/19 at 19:00 Acetaminophen (Tylenol Tab) 650 mg Q6H PRN PO .PAIN 1-3 OR TEMP; Start 06/22/19 at 19:00 Morphine Sulfate (morphine) 2 mg Q4H PRN IV .PAIN 7-10; Start 06/22/19 at 19:00 Famotidine (Pepcid Iv) 20 mg Q24H IV Last administered on 06/22/19at 20:54; Admin Dose 20 MG; Start 06/22/19 at 21:00 Enoxaparin Sodium (Lovenox) 30 mg DAILY SC Last administered on 06/23/19at 08:21; Admin Dose 30 MG; Start 06/23/19 at 09:00 Piperacillin Sod/ Tazobactam Sod 100 ml @ 200 mls/hr Q6 IVPB Last administered on 06/23/19at 12:43; Admin Dose 200 MLS/HR; Start 06/23/19 at 00:00 Diagnostic Test (Pha) (Accu-Chek) 1 ea 02 XX Last administered on 06/23/19at 02:38; Admin Dose 1 EA; Start 06/23/19 at 02:00 Insulin Aspart (Novolog Insulin Pen) NOVOLOG *MILD* ALGORITHM WITH MEALS BEDTIME SC Last administered on 06/23/19at 12:44; Admin Dose 5 UNIT; Start 06/23/19 at 07:55 Miscellaneous Information 1 ea NOTE XX ; Start 06/23/19 at 01:30 Glucose (Glutose) 15 gm Q15M PRN PO DECREASED GLUCOSE; Start 06/23/19 at 01:30 Glucose (Glutose) 22.5 gm Q15M PRN PO DECREASED GLUCOSE; Start 06/23/19 at 01:30 Dextrose (D50w Syringe) 25 ml Q15M PRN IV DECREASED GLUCOSE; Start 06/23/19 at 01:30 Dextrose (D50w Syringe) 50 ml Q15M PRN IV DECREASED GLUCOSE; Start 06/23/19 at 01:30 Glucagon (Glucagen) 1 mg Q15M PRN IM DECREASED GLUCOSE; Start 06/23/19 at 01:30 Glucose (Glutose) 15 gm Q15M PRN BUCCAL DECREASED GLUCOSE; Start 06/23/19 at 01:30 Coded Allergies: No Known Allergy (Unverified , 06/22/19) Past Surgical History Past Surgical Hx: appendectomy Family History Significant Family History: hypertension Social History Smoking Status: Former smoker Exam/Review of Systems Vital Signs Vitals Vital Signs Date Temp Pulse Resp B/P (MAP) Pulse Ox O2 O2 Flow FiO2 Time Delivery Rate 06/23/19 98.1 71 18 135/67 98 Room Air 12:30 (89) Intake and Output 06/22/19 06/22/19 06/23/19 1515:00 23:00 07:00 IntakeIntake Total 900 ml OutputOutput Total 450 ml BalanceBalance 450 ml Exam Constitutional: well developed Head: normocephalic, atraumatic Neck: supple Respiratory: diminished breath sounds Cardiovascular: regular rate and rhythm Gastrointestinal: soft, non-tender Extremities: normal pulses GO LANGFORD Jun 23, 2019 14:06
[2019-06-23 16:25] VITALS: BP 128/70; PULSE 77; RESP 18
[2019-06-23 19:39] VITALS: BP 147/73; PULSE 75; RESP 19
[2019-06-23] MEDS ORDERED: INSULIN GLARGINE [LANTus] (100 UNITS/ML) SYG SC SCH (21:00)
[2019-06-23] MEDS: TAMSULOSIN (SR) 0.4 MG CAP PO SCH (21:45)
[2019-06-23] MEDS: FAMOTIDINE 20 MG INJ IV SCH (21:45)
[2019-06-23] MEDS: ATORVASTATIN 20 MG TAB PO SCH (21:46)
[2019-06-24] VITALS (8 sets, daily range): BP systolic 126–166; BP diastolic 60–82; PULSE 64–81; RESP 16–20
[2019-06-24] MEDS: PIPER-TAZO 3.375 GM IV (PMX) 100 ML IVPB SCH ×4 (00:56→17:26)
[2019-06-24] MEDS: SOD CHLORIDE 0.9% 1,000 ML IV SCH ×3 (00:56→20:28)
[2019-06-24] MEDS: ACCU-CHEK XX SCH ×5 (01:06→21:10)
[2019-06-24] MEDS: INSULIN ASPART [NOVOLOG] 3 ML PEN SC SCH ×4 (07:33→20:47)
[2019-06-24] MEDS: GABAPENTIN 100 MG CAP PO SCH (08:13)
[2019-06-24] MEDS: LINAGLIPTIN 5 MG TABLET PO SCH (08:13)
[2019-06-24] MEDS: ASPIRIN (EC) 81 MG TAB PO SCH (08:13)
[2019-06-24] MEDS: ENOXAPARIN 30 MG/0.3 ML SYG SC SCH (08:53)
[2019-06-24] MEDS ORDERED: glipiZIDE 5 MG TAB PO SCH (09:00)
--- NOTE | 2019-06-24 10:56 | PN ---
Date/Time of Note Date/Time of Note DATE: 06/24/19 TIME: 10:55 Assessment/Plan VTE Prophylaxis Risk score (from Ns)>0 risk: 3 SCD applied (from Ns): Yes Pharmacological prophylaxis: LMWH Lines/Catheters IV C[facility]from [facility] Peripheral IV Urinary Cath still in place: No Assessment/Plan Hospital Course 1) hypotension - IV fluids 2) possible sepsis - IV antibiotics 3) diabetes mellitus - monitor blood sugar - sliding scale insulin - adjust lantus to get better sugar control Result Diagram: 06/24/1930 06/24/1930 Results 24hrs Laboratory Tests Test 06/23/19 11:42 06/23/19 17:14 06/23/19 21:47 06/24/19 01:05 Bedside Glucose 303 H 364 H 250 H 210 Test 06/24/19 05:30 06/24/19 07:30 White Blood Count 7.4 Red Blood Count 4.00 L Hemoglobin 11.8 L Hematocrit 34.6 L Mean Corpuscular Volume 86.5 Mean Corpuscular 29.5 Hemoglobin Mean Corpuscular 34.1 Hemoglobin Concent Red Cell Distribution 14.4 Width Platelet Count 223 Mean Platelet Volume 10.9 H Immature Granulocytes % 0.300 Neutrophils % 63.9 Lymphocytes % 20.7 Monocytes % 9.5 Eosinophils % 4.8 Basophils % 0.8 Nucleated Red Blood 0.0 Cells % Immature Granulocytes # 0.020 Neutrophils # 4.7 Lymphocytes # 1.5 Monocytes # 0.7 Eosinophils # 0.4 Basophils # 0.1 Nucleated Red Blood 0.0 Cells # Sodium Level 135 Potassium Level 4.5 Chloride Level 104 Carbon Dioxide Level 23 Anion Gap 8 Blood Urea Nitrogen 13 Creatinine 1.14 Est Glomerular Filtrat > 60 Rate mL/min Glucose Level 254 H Calcium Level 8.5 Bedside Glucose 261 H Subjective 24 Hr Interval Summary Free Text/Dictation Patient has no complaints Exam/Review of Systems Exam Vitals Vital Signs Date Temp Pulse Resp B/P (MAP) Pulse Ox O2 O2 Flow FiO2 Time Delivery Rate 06/24/19 98.2 81 18 133/74 98 Room Air 07:35 (93) Intake and Output 06/23/19 06/23/19 06/24/19 1515:00 23:00 07:00 IntakeIntake Total 680 ml 300 ml 700 ml OutputOutput Total 1000 ml 600 ml BalanceBalance 680 ml -700 ml 100 ml Constitutional: well developed Head: normocephalic, atraumatic Neck: supple Respiratory: diminished breath sounds Cardiovascular: regular rate and rhythm Gastrointestinal: soft, non-tender Extremities: normal pulses Results Results 24hrs Laboratory Tests Test 06/23/19 11:42 06/23/19 17:14 06/23/19 21:47 06/24/19 01:05 Bedside Glucose 303 H 364 H 250 H 210 Test 06/24/19 05:30 06/24/19 07:30 White Blood Count 7.4 Red Blood Count 4.00 L Hemoglobin 11.8 L Hematocrit 34.6 L Mean Corpuscular Volume 86.5 Mean Corpuscular 29.5 Hemoglobin Mean Corpuscular 34.1 Hemoglobin Concent Red Cell Distribution 14.4 Width Platelet Count 223 Mean Platelet Volume 10.9 H Immature Granulocytes % 0.300 Neutrophils % 63.9 Lymphocytes % 20.7 Monocytes % 9.5 Eosinophils % 4.8 Basophils % 0.8 Nucleated Red Blood 0.0 Cells % Immature Granulocytes # 0.020 Neutrophils # 4.7 Lymphocytes # 1.5 Monocytes # 0.7 Eosinophils # 0.4 Basophils # 0.1 Nucleated Red Blood 0.0 Cells # Sodium Level 135 Potassium Level 4.5 Chloride Level 104 Carbon Dioxide Level 23 Anion Gap 8 Blood Urea Nitrogen 13 Creatinine 1.14 Est Glomerular Filtrat > 60 Rate mL/min Glucose Level 254 H Calcium Level 8.5 Bedside Glucose 261 H Medications Medication Current Medications Sodium Chloride 1,000 ml @ 100 mls/hr Q10H IV Last administered on 06/24/19at 00:56; Admin Dose 100 MLS/HR; Start 06/22/19 at 18:50 IV Flush (NS 3 ml) 3 ml PER PROTOCOL IV ; Start 06/22/19 at 19:00 Ondansetron HCl (Zofran Inj) 4 mg Q6H PRN IV NAUSEA/VOMITING; Start 06/22/19 at 19:00 Acetaminophen (Tylenol Tab) 650 mg Q6H PRN PO .PAIN 1-3 OR TEMP; Start 06/22/19 at 19:00 Morphine Sulfate (morphine) 2 mg Q4H PRN IV .PAIN 7-10; Start 06/22/19 at 19:00 Famotidine (Pepcid Iv) 20 mg Q24H IV Last administered on 06/23/19 21:45; Admin Dose 20 MG; Start 06/22/19 at 21:00 Enoxaparin Sodium (Lovenox) 30 mg DAILY SC Last administered on 06/24/19at 08:53; Admin Dose 30 MG; Start 06/23/19 at 09:00 Piperacillin Sod/ Tazobactam Sod 100 ml @ 200 mls/hr Q6 IVPB Last administered on 06/24/19 06:17; Admin Dose 200 MLS/HR; Start 06/23/19 at 00:00 Diagnostic Test (Pha) (Accu-Chek) 1 ea 02 XX Last administered on 06/24/19 01:06; Admin Dose 1 EA; Start 06/23/19 at 02:00 Miscellaneous Information 1 ea NOTE XX ; Start 06/23/19 at 01:30 Glucose (Glutose) 15 gm Q15M PRN PO DECREASED GLUCOSE; Start 06/23/19 at 01:30 Glucose (Glutose) 22.5 gm Q15M PRN PO DECREASED GLUCOSE; Start 06/23/19 at 01:30 Dextrose (D50w Syringe) 25 ml Q15M PRN IV DECREASED GLUCOSE; Start 06/23/19 at 01:30 Dextrose (D50w Syringe) 50 ml Q15M PRN IV DECREASED GLUCOSE; Start 06/23/19 at 01:30 Glucagon (Glucagen) 1 mg Q15M PRN IM DECREASED GLUCOSE; Start 06/23/19 at 01:30 Glucose (Glutose) 15 gm Q15M PRN BUCCAL DECREASED GLUCOSE; Start 06/23/19 at 01:30 Aspirin (Halfprin) 81 mg DAILY PO Last administered on 06/24/19at 08:13; Admin Dose 81 MG; Start 06/24/19 at 09:00 Gabapentin (Neurontin) 100 mg DAILY PO Last administered on 06/24/19 08:13; Admin Dose 100 MG; Start 06/24/19 at 09:00 Insulin Glargine (Lantus) 40 units QHS SC Last administered on 06/23/19at 21:55; Admin Dose 40 UNITS; Start 06/23/19 at 21:00 Tamsulosin HCl (Flomax) 0.4 mg HS PO Last administered on 06/23/19at 21:45; Admin Dose 0.4 MG; Start 06/23/19 at 21:00 Atorvastatin Calcium (Lipitor) 20 mg DAILY@21 PO Last administered on 06/23/19at 21:46; Admin Dose 20 MG; Start 06/23/19 at 21:00 Linagliptin (Tradjenta) 5 mg DAILY PO Last administered on 06/24/19 08:13; Admin Dose 5 MG; Start 06/24/19 at 09:00 Diagnostic Test (Pha) (Accu-Chek) 1 ea AC MEALS AND BEDTIME XX Last administered on 06/24/19 07:33; Admin Dose 1 EA; Start 06/23/19 at 17:25 Insulin Aspart (Novolog Insulin Pen) NOVOLOG *MODERATE* ALGORITHM WITH MEALS BEDTIME SC Last administered on 06/24/19 07:33; Admin Dose 8 UNIT; Start 06/23/19 at 17:55 GO LANGFORD Jun 24, 2019 10:56
[2019-06-24] MEDS: FAMOTIDINE 20 MG INJ IV SCH (20:27)
[2019-06-24] MEDS: ATORVASTATIN 20 MG TAB PO SCH (20:27)
[2019-06-24] MEDS: TAMSULOSIN (SR) 0.4 MG CAP PO SCH (20:27)
[2019-06-24] MEDS ORDERED: INSULIN ASPART [NOVOLOG] 3 ML PEN SC ONE (21:00)
[2019-06-24] MEDS ORDERED: INSULIN GLARGINE [LANTus] (100 UNITS/ML) SYG SC SCH (21:00)
[2019-06-25] MEDS: PIPER-TAZO 3.375 GM IV (PMX) 100 ML IVPB SCH ×4 (00:58→18:20)
[2019-06-25] MEDS: ACCU-CHEK XX SCH ×5 (01:21→21:54)
[2019-06-25 03:54] VITALS: BP 149/75; PULSE 63; RESP 20
[2019-06-25] MEDS: SOD CHLORIDE 0.9% 1,000 ML IV SCH ×2 (06:15→16:09)
[2019-06-25 07:30] VITALS: BP 124/60; PULSE 76; RESP 18
[2019-06-25] MEDS: INSULIN ASPART [NOVOLOG] 3 ML PEN SC SCH ×4 (08:24→21:52)
[2019-06-25] MEDS: GABAPENTIN 100 MG CAP PO SCH (08:34)
[2019-06-25] MEDS: ASPIRIN (EC) 81 MG TAB PO SCH (08:35)
[2019-06-25] MEDS: LINAGLIPTIN 5 MG TABLET PO SCH (08:35)
[2019-06-25] MEDS: ENOXAPARIN 30 MG/0.3 ML SYG SC SCH (08:58)
[2019-06-25 11:40] VITALS: BP 155/74; PULSE 79; RESP 18
[2019-06-25 15:46] VITALS: BP 137/70; PULSE 80; RESP 17
[2019-06-25 20:00] VITALS: BP 177/84; PULSE 68; RESP 19
[2019-06-25] MEDS: TAMSULOSIN (SR) 0.4 MG CAP PO SCH (20:34)
[2019-06-25] MEDS: FAMOTIDINE 20 MG INJ IV SCH (20:34)
[2019-06-25] MEDS: ATORVASTATIN 20 MG TAB PO SCH (20:34)
[2019-06-25] MEDS: ATENOLOL 25 MG TAB PO SCH (20:34)
[2019-06-25] MEDS ORDERED: INSULIN GLARGINE [LANTus] (100 UNITS/ML) SYG SC SCH (21:00)
[2019-06-26] VITALS: BP 145/76; PULSE 68; RESP 19
[2019-06-26] MEDS: PIPER-TAZO 3.375 GM IV (PMX) 100 ML IVPB SCH ×3 (00:45→11:54)
[2019-06-26] MEDS: ACCU-CHEK XX SCH ×3 (02:00→11:20)
[2019-06-26 04:00] VITALS: BP 117/75; PULSE 71; RESP 18
[2019-06-26 07:24] VITALS: BP 107/65; PULSE 62; RESP 20
[2019-06-26] MEDS: INSULIN ASPART [NOVOLOG] 3 ML PEN SC SCH ×2 (07:57→12:02)
[2019-06-26] MEDS: FAMOTIDINE 20 MG INJ IV SCH (08:55)
[2019-06-26] MEDS: ATENOLOL 25 MG TAB PO SCH (08:56)
[2019-06-26] MEDS: LINAGLIPTIN 5 MG TABLET PO SCH (08:56)
[2019-06-26] MEDS: ASPIRIN (EC) 81 MG TAB PO SCH (08:56)
[2019-06-26] MEDS: GABAPENTIN 100 MG CAP PO SCH (08:57)
[2019-06-26] MEDS: ENOXAPARIN 30 MG/0.3 ML SYG SC SCH (09:42)
[2019-06-26 10:54] VITALS: BP 121/66; PULSE 67; RESP 20
--- NOTE | 2019-06-26 14:59 | DS ---
Date/Time of Note Date/Time of Note DATE: 06/26/19 TIME: 14:57 Discharge Summary Admission/Discharge Info Admit Date/Time Jun 22, 2019 at 16:54 Discharge Date/Time 06/26/19 Discharge Diagnosis 1) hypotension 2) diabetes 3) sepsiis Patient Condition: Fair Consults none Procedures none Hx of Present Illness Patient with hypertension, hyperlipidemia, diabetes comes in to the ER with hypotension and possible sepsis. Patient was given IV fluids and his blood pressure improved. Patient also given antibiotics for possible sepsis. He is admitted for further treatment. Hospital Course Patient with hypertension, hyperlipidemia, diabetes comes in to the ER with hyp otension and possible sepsis. Patient was given IV fluids and his blood pressure improved. Patient also given antibiotics for possible sepsis. He is admitted for further treatment. Patient was monitored on blood sugar and it improved with close monitoring. His lightheadedness improved with fluid hydration. By the time of discharge, patient is at baseline. 1) hypotension - IV fluids 2) possible sepsis - IV antibiotics 3) diabetes mellitus - monitor blood sugar - sliding scale insulin - adjust lantus to get better sugar control Home Meds Reported Medications Glipizide* (Glipizide*) 5 Mg Tablet, 1 TAB ORAL DAILY 06/22/19 Insulin Glargine* (Lantus*) 100 Unit/Ml Soln, 40 UNIT SC QHS, #1 VIAL 06/22/19 Insulin Lispro (Humalog) 100 Unit/1 Ml Cartridge, 40 UNIT SQ QAM, EA 06/16/19 Simvastatin* (Zocor*) 40 Mg Tablet, 40 MG PO QHS, #30 TAB 06/16/19 Gabapentin* (Gabapentin*) 100 Mg Capsule, 100 MG PO DAILY, #90 CAP 06/16/19 Aspirin* (Aspirin* EC) 81 Mg Tablet.dr, 81 MG PO DAILY, TAB 06/16/19 Tamsulosin Hcl* (Flomax*) 0.4 Mg Cap.er.24h, 0.4 MG PO HS, CAP 06/16/19 Sitagliptin* (Januvia*) 50 Mg Tablet, 50 MG PO DAILY, #30 TAB 06/16/19 Discontinued Reported Medications Insulin Glargine,Hum.rec.anlog (Basaglar Kwikpen U-100) 100 Unit/1 Ml Insuln.pen, 45 UNIT SC QHS, EA 06/16/19 Lisinopril* (Lisinopril*) 10 Mg Tablet, 10 MG PO DAILY, #30 TAB 06/16/19 Primary Care Provider Not On Staff Doctor Pending Labs Laboratory Tests Test 06/25/19 17:43 06/25/19 20:36 06/26/19 03:07 06/26/19 07:47 Bedside 243 244 177 209 Glucose mg/dL (70-220) mg/dL (70-220) mg/dL (70-220) mg/dL (70-220) Test 06/26/19 11:53 Bedside 256 Glucose mg/dL (70-220) GO LANGFORD Jun 26, 2019 14:59
[2019-06-26 15:14] VITALS: BP 113/74; PULSE 65; RESP 20
== END 2019-06-26 16:03 | disposition home or self-care (01) | DRG 872 ==
LOC: E/R 13:17 → TEL 16:54
PROVIDERS: ADMIT Internal Medicine; ATTEND Internal Medicine
DX: A41.9 Sepsis, unspecified organism (principal); E11.40 Type 2 diabetes mellitus with diabetic neuropathy, unspecified; I95.9 Hypotension, unspecified; E78.5 Hyperlipidemia, unspecified; N40.0 Benign prostatic hyperplasia without lower urinary tract symptoms; F32.9 Major depressive disorder, single episode, unspecified; E86.0 Dehydration; D64.9 Anemia, unspecified; Z79.4 Long term (current) use of insulin; Z87.891 Personal history of nicotine dependence; Z79.82 Long term (current) use of aspirin
CPT/HCPCS: 36415; 71045; 80048; 80053; 81003; 82803; 82962; 83036; 83605; 83735; 84100; 84484; 85025; 85610; 85730; 87086; 93005; 96374; J1650; J1815; J2543; J7030

== ENCOUNTER 2019-08-03 12:32 | Inpatient (IN) | payer OTHER ==
[~2019-08-03] VITALS: Ht 165.1 cm; Wt 81.3 kg
[~2019-08-03 12:32] MED LIST changes: +CLOP75TA27 PO; -INSU100I33 SC
[2019-08-03] MEDS ORDERED: SOD CHLORIDE 0.9% 500 ML IV STA (16:07)
[2019-08-03] MEDS ORDERED: SOD CHLORIDE 0.9% 100 ML ONE (17:12)
[2019-08-03] MEDS ORDERED: IOHEXOL 100 ML ONE (17:12)
[2019-08-03] MEDS ORDERED: IOHEXOL 350MG/ML 50 ML BTL ONE (17:12)
[2019-08-03] MEDS ORDERED: ASPIRIN 81 MG TAB PO ONE (18:00)
[2019-08-03] MEDS ORDERED: DEXTROSE 50% 50 ML SYRINGE IV PRN ×2 (19:30)
[2019-08-03] MEDS ORDERED: GLUCOSE GEL 15 GRAM TUBE BUCCAL PRN (19:30)
[2019-08-03] MEDS ORDERED: GLUCOSE GEL 15 GRAM TUBE PO PRN ×2 (19:30)
[2019-08-03] MEDS ORDERED: GLUCAGON 1 MG INJ IM PRN (19:30)
[2019-08-03] MEDS ORDERED: NA POLYST SULFON 15 GM/60 ML BTL PO ONE (20:30)
[2019-08-03] MEDS: INSULIN GLARGINE [LANTus] (100 UNITS/ML) SYG SC SCH (21:00)
[2019-08-03] MEDS: INSULIN ASPART [NOVOLOG] 3 ML PEN SC SCH (21:00)
[2019-08-03 21:10] VITALS: BP 121/81; PULSE 68; RESP 18
[2019-08-03 21:30] VITALS: Ht 165.1 cm; Wt 81.3 kg
[2019-08-03] MEDS: TAMSULOSIN (SR) 0.4 MG CAP PO SCH (23:00)
[2019-08-04] VITALS: BP 148/70; PULSE 75; RESP 19
[2019-08-04] MEDS ORDERED: hydrALAzine 20 MG INJ IV PRN (00:30)
[2019-08-04] MEDS ORDERED: ACCU-CHEK XX SCH (02:00)
[2019-08-04] MEDS: ACCU-CHEK XX SCH (02:00)
[2019-08-04 04:24] VITALS: BP 121/59; PULSE 79; RESP 18
[2019-08-04 07:17] VITALS: BP 142/67; PULSE 83; RESP 20
[2019-08-04] MEDS: GABAPENTIN 100 MG CAP PO SCH (08:11)
[2019-08-04] MEDS: ASPIRIN (EC) 81 MG TAB PO SCH (08:11)
[2019-08-04] MEDS: LISINOPRIL 10 MG TAB PO SCH (08:11)
[2019-08-04] MEDS: INSULIN ASPART [NOVOLOG] 3 ML PEN SC SCH ×4 (08:15→20:24)
[2019-08-04 12:16] VITALS: BP 127/90; PULSE 69; RESP 18
[2019-08-04 16:03] VITALS: BP 153/74; PULSE 78; RESP 18
[2019-08-04 20:10] VITALS: BP 139/72; PULSE 70; RESP 18
[2019-08-04] MEDS: ATORVASTATIN 10 MG TAB PO SCH (20:15)
[2019-08-04] MEDS: TAMSULOSIN (SR) 0.4 MG CAP PO SCH (20:15)
[2019-08-04] MEDS: INSULIN GLARGINE [LANTus] (100 UNITS/ML) SYG SC SCH (20:23)
[2019-08-05] VITALS (7 sets, daily range): BP systolic 97–151; BP diastolic 61–77; PULSE 74–85; RESP 18–20
[2019-08-05] MEDS: ACCU-CHEK XX SCH (02:00)
[2019-08-05] MEDS: GABAPENTIN 100 MG CAP PO SCH (08:19)
[2019-08-05] MEDS: ASPIRIN (EC) 81 MG TAB PO SCH (08:21)
[2019-08-05] MEDS: LISINOPRIL 10 MG TAB PO SCH (08:21)
[2019-08-05] MEDS: INSULIN ASPART [NOVOLOG] 3 ML PEN SC SCH ×4 (08:25→20:47)
[2019-08-05] MEDS: TAMSULOSIN (SR) 0.4 MG CAP PO SCH (20:40)
[2019-08-05] MEDS: ATORVASTATIN 10 MG TAB PO SCH (20:40)
[2019-08-05] MEDS: INSULIN GLARGINE [LANTus] (100 UNITS/ML) SYG SC SCH (20:47)
[2019-08-06] MEDS: ACCU-CHEK XX SCH (02:03)
[2019-08-06 04:00] VITALS: BP 124/62; PULSE 77; RESP 19
[2019-08-06 07:29] VITALS: BP 117/57; PULSE 85; RESP 19
[2019-08-06] MEDS: INSULIN ASPART [NOVOLOG] 3 ML PEN SC SCH ×7 (08:49→21:29)
[2019-08-06] MEDS: ASPIRIN (EC) 81 MG TAB PO SCH (09:49)
[2019-08-06] MEDS: GABAPENTIN 100 MG CAP PO SCH (09:50)
[2019-08-06] MEDS: LISINOPRIL 10 MG TAB PO SCH (09:50)
[2019-08-06] MEDS: LINAGLIPTIN 5 MG TABLET PO SCH (09:50)
[2019-08-06 11:29] VITALS: BP 117/58; PULSE 83; RESP 18
[2019-08-06 15:10] VITALS: BP 98/55; PULSE 71; RESP 18
[2019-08-06 20:00] VITALS: BP 120/63; PULSE 86; RESP 18
[2019-08-06] MEDS: TAMSULOSIN (SR) 0.4 MG CAP PO SCH (21:19)
[2019-08-06] MEDS: ATORVASTATIN 10 MG TAB PO SCH (21:19)
[2019-08-06] MEDS: INSULIN GLARGINE [LANTus] (100 UNITS/ML) SYG SC SCH (21:29)
[2019-08-07] VITALS: BP 112/58; PULSE 79; RESP 18
[2019-08-07] MEDS: ACCU-CHEK XX SCH (02:00)
[2019-08-07 04:00] VITALS: BP 110/57; PULSE 72; RESP 18
[2019-08-07 07:35] VITALS: BP 100/58; PULSE 70; RESP 20
[2019-08-07] MEDS: GABAPENTIN 100 MG CAP PO SCH (08:56)
[2019-08-07] MEDS: LINAGLIPTIN 5 MG TABLET PO SCH (08:57)
[2019-08-07] MEDS: LISINOPRIL 10 MG TAB PO SCH (08:57)
[2019-08-07] MEDS: ASPIRIN (EC) 81 MG TAB PO SCH (08:57)
[2019-08-07 11:08] VITALS: BP 105/55; PULSE 72; RESP 18
[2019-08-07] MEDS ORDERED: INSULIN ASPART [NOVOLOG] 3 ML PEN SC SCH ×2 (11:50)
== END 2019-08-07 13:55 | disposition home or self-care (01) | DRG 69 ==
LOC: E/R 12:32 → TEL 17:51
PROVIDERS: ADMIT Internal Medicine; ATTEND Internal Medicine
DX: G45.9 Transient cerebral ischemic attack, unspecified (principal); N17.9 Acute kidney failure, unspecified; E78.5 Hyperlipidemia, unspecified; I10 Essential (primary) hypertension; N40.0 Benign prostatic hyperplasia without lower urinary tract symptoms; E11.65 Type 2 diabetes mellitus with hyperglycemia; E87.5 Hyperkalemia; I65.22 Occlusion and stenosis of left carotid artery; Z79.4 Long term (current) use of insulin; Z79.82 Long term (current) use of aspirin; Z86.73 Personal history of transient ischemic attack (TIA), and cerebral infarction without residual deficits
CPT/HCPCS: 36415; 70450; 70496; 70498; 70551; 71045; 80048; 80053; 80061; 80307; 81003; 82570; 82962; 83036; 83690; 84300; 84484; 85025; 85610; 85651; 85730; 86592; 92523; 92610; 93005; 93306; 97161; J1815; J7040; Q9967